=== PATIENT | male | born 1950 | race Caucasian/White ===

== ENCOUNTER → 2024-10-07 | Outpatient (CLI) | payer MEDICARE, SELFPAY ==
[2024-10-07 14:28] LABS: Basophils # (Auto) 0.1 Thou/mm3 (0.0-0.2); Basophils % (Auto) 1 % (0-2.5); Eosinophils % (Auto) 0 % (0-10); Hematocrit 40.6 % (41.0-53.0); Hemoglobin 14.1 g/dL (13.5-16.0); Immature Granulocytes % (Auto) 0 % (0-0); Immature Granulocytes Auto 0.02 Thou/mm3 (0.00-0.00); Lymphocytes # (Auto) 1.3 Thou/mm3 (1.0-4.8); Lymphocytes % (Auto) 19 % (10-50); Mean Corpuscular HGB Conc 34.7 g/dl (31.0-37.0); Mean Corpuscular Hemoglobin 29.4 pg (25.0-35.0); Mean Corpuscular Volume 85 fL (80-100); Monocytes # (Auto) 0.7 Thou/mm3 (0.0-0.8); Monocytes % (Auto) 11 % (0-12); Neutrophils # (Auto) 4.6 Thou/mm3 (1.8-7.7); Neutrophils % (Auto) 69 % (37-80); Nucleated Red Blood Cell % 0 /100 WBC (0); Platelet Count 213 Thou/mm3 (140-440); RDW Standard Deviation 42.1 fL (35.1-43.9); White Blood Count 6.7 Thou/mm3 (3.8-10.6)
[2024-10-07 14:58] LABS: Alanine Aminotransferase 18 U/L (10-49); Albumin, Serum 4.5 gm/dL (3.4-4.8); Alkaline Phosphatase 73 U/L (46-116); Anion Gap 8 (7-16); Aspartate Amino Transferase 14 U/L (0-34); BUN/Creatinine Ratio 28 Ratio (12-20); Bilirubin,Total 1.4 mg/dL (0.3-1.2); Blood Urea Nitrogen 28 mg/dL (9-23); Calcium 9.1 mg/dL (8.3-10.6); Calcium (Corrected) 9.1 mg/dL (8.5-10.1); Carbon Dioxide 23.5 mMol/L (20.0-31.0); Chloride 107 mMol/L (98-107); Globulin 1.5 gm/dL (2.3-3.5); Glucose 189 mg/dL (74-106); Osmolality,Calculated 286 (275-295); Potassium 4.3 mMol/L (3.4-5.1); Sodium 138 mMol/L (136-145); eGFR > 60 See Note
== END | disposition home or self-care (01) ==
LOC: COPL 14:00
PROVIDERS: PCP Specialist; Referring Provider Specialist; Visit Provider Specialist
DX: R79.89 Other specified abnormal findings of blood chemistry (principal); R53.1 Weakness; R11.2 Nausea with vomiting, unspecified; R94.5 Abnormal results of liver function studies; K76.89 Other specified diseases of liver
CPT/HCPCS: 36415; 80053; 85025

== ENCOUNTER → 2024-12-01 | Outpatient (CLI) | payer MEDICARE, SELFPAY ==
[2024-12-01 16:43] LABS: Creatinine MALB Rnd Ur 44 mg/dL (30-125); Microalbumin Creat Ratio 173 mg/gCrea (<30); Microalbumin, Random Urine 76 mg/L (0-300)
[2024-12-01 16:43] LABS: Alanine Aminotransferase 12 U/L (10-49); Albumin, Serum 4.2 gm/dL (3.4-4.8); Albumin/Globulin Ratio 2.1 (1.2-2.2); Alkaline Phosphatase 73 U/L (46-116); Anion Gap 9 (7-16); Aspartate Amino Transferase 16 U/L (0-34); BUN/Creatinine Ratio 25 Ratio (12-20); Bilirubin,Total 1.5 mg/dL (0.3-1.2); Blood Urea Nitrogen 25 mg/dL (9-23); Calcium 9.3 mg/dL (8.3-10.6); Calcium (Corrected) 9.3 mg/dL (8.5-10.1); Carbon Dioxide 24.7 mMol/L (20.0-31.0); Cardiac Risk Estimate 2.7 RATIO (4.0-6.7); Chloride 108 mMol/L (98-107); Cholesterol 114 mg/dL (132-200); Glucose 192 mg/dL (74-106); HDL Cholesterol 43 mg/dL (40-60); LDL Cholesterol,Calculated 23 mg/dL (0-130); Osmolality,Calculated 292 (275-295); Phosphorous 4.4 mg/dL (2.4-5.1); Sodium 142 mMol/L (136-145); Total Protein 6.2 gm/dL (5.7-8.2); Triglycerides 239 mg/dL (30-150); eGFR > 60 See Note
[2024-12-01 16:44] LABS: Glucose Estimated Average 157 mg/dL (80-131); Hemoglobin A1C 7.1 % Hgb (4.8-6.0)
== END | disposition home or self-care (01) ==
LOC: COPL 14:42
PROVIDERS: PCP Specialist; Referring Provider Internal Medicine; Visit Provider Internal Medicine
DX: E11.65 Type 2 diabetes mellitus with hyperglycemia (principal); E78.2 Mixed hyperlipidemia
CPT/HCPCS: 36415; 80053; 80061; 82043; 82570; 83036; 84100

== ENCOUNTER → 2025-01-11 | Outpatient (CLI) | payer MEDICARE, SELFPAY ==
[2025-01-11 13:52] LABS: Glucose Estimated Average 123 mg/dL (80-131); Hemoglobin A1C 5.9 % Hgb (4.8-6.0)
[2025-01-11 14:08] LABS: Creatinine MALB Rnd Ur 17 mg/dL (30-125); Microalbumin Creat Ratio 153 mg/gCrea (<30); Microalbumin, Random Urine 26 mg/L (0-300)
== END | disposition home or self-care (01) ==
LOC: COPL 13:06
PROVIDERS: PCP Specialist; Referring Provider Specialist; Visit Provider Specialist
DX: E11.65 Type 2 diabetes mellitus with hyperglycemia (principal)
CPT/HCPCS: 36415; 82043; 82570; 83036

== ENCOUNTER → 2025-04-12 | Outpatient (CLI) | payer MEDICARE, SELFPAY ==
[2025-04-12 17:47] LABS: Basophils % (Auto) 1 % (0-2.5); Eosinophils % (Auto) 0 % (0-10); Hematocrit 36.2 % (41.0-53.0); Hemoglobin 12.7 g/dL (13.5-16.0); Immature Granulocytes % (Auto) 0 % (0-0); Immature Granulocytes Auto 0.01 Thou/mm3 (0.00-0.00); Immature Reticulocyte Fraction 12.2 % (2.3-13.4); Lymphocytes # (Auto) 0.7 Thou/mm3 (1.0-4.8); Lymphocytes % (Auto) 10 % (10-50); Mean Corpuscular HGB Conc 35.1 g/dl (31.0-37.0); Mean Corpuscular Hemoglobin 31.3 pg (25.0-35.0); Mean Corpuscular Volume 89 fL (80-100); Monocytes # (Auto) 0.7 Thou/mm3 (0.0-0.8); Monocytes % (Auto) 11 % (0-12); Neutrophils # (Auto) 5.2 Thou/mm3 (1.8-7.7); Neutrophils % (Auto) 79 % (37-80); Nucleated Red Blood Cell % 0 /100 WBC (0); Platelet Count 218 Thou/mm3 (140-440); RDW Standard Deviation 42.7 fL (35.1-43.9); Red Blood Count 4.06 Miln/mm3 (4.50-5.90); Reticulocyte Absolute Auto 82.4 Biln/L (25.0-75.0); Reticulocyte Hgb Content 34.7 pg (28.0-35.0); White Blood Count 6.6 Thou/mm3 (3.8-10.6)
[2025-04-12 17:52] LABS: Glucose Estimated Average 111 mg/dL (80-131); Hemoglobin A1C 5.5 % Hgb (4.8-6.0)
[2025-04-12 18:03] LABS: Creatinine MALB Rnd Ur 76 mg/dL (30-125); Microalbumin Creat Ratio 64 mg/gCrea (<30); Microalbumin, Random Urine 49 mg/L (0-300)
[2025-04-12 18:05] LABS: Alanine Aminotransferase 16 U/L (10-49); Albumin, Serum 4.1 gm/dL (3.4-4.8); Albumin/Globulin Ratio 2.4 (1.2-2.2); Alkaline Phosphatase 63 U/L (46-116); Anion Gap 9 (7-16); Aspartate Amino Transferase 18 U/L (0-34); BUN/Creatinine Ratio 19 Ratio (12-20); Bilirubin,Total 1.3 mg/dL (0.3-1.2); Blood Urea Nitrogen 19 mg/dL (9-23); Calcium 9.1 mg/dL (8.3-10.6); Calcium (Corrected) 9.1 mg/dL (8.5-10.1); Carbon Dioxide 25.8 mMol/L (20.0-31.0); Cardiac Risk Estimate 2.8 RATIO (4.0-6.7); Chloride 108 mMol/L (98-107); Cholesterol 101 mg/dL (132-200); Free T4 (Free Thyroxine) 1.23 ng/dL (0.89-1.76); Globulin 1.7 gm/dL (2.3-3.5); Glucose 126 mg/dL (74-106); HDL Cholesterol 36 mg/dL (40-60); LDL Cholesterol,Calculated 31 mg/dL (0-130); Osmolality,Calculated 289 (275-295); Sodium 143 mMol/L (136-145); Thyroid Stimulating Hormone 1.67 uIU/mL (0.55-4.78); Total Protein 5.8 gm/dL (5.7-8.2); Triglycerides 172 mg/dL (30-150); eGFR > 60 See Note
[2025-04-12 18:08] LABS: Iron 32 mcg/dL (65-175); Percent Iron Saturation 11 % (20-55); Total Iron Binding Capacity 272 mcg/dL (250-425); Unsaturated Iron Binding 240 (225-295)
[2025-04-16 06:08] LABS: hs-CRP* 3.3 mg/L
== END | disposition home or self-care (01) ==
LOC: COPL 16:17
PROVIDERS: PCP Specialist; Referring Provider Specialist; Visit Provider Specialist
DX: E11.65 Type 2 diabetes mellitus with hyperglycemia (principal); E03.8 Other specified hypothyroidism; E78.2 Mixed hyperlipidemia; D50.9 Iron deficiency anemia, unspecified; K51.00 Ulcerative (chronic) pancolitis without complications; K57.30 Diverticulosis of large intestine without perforation or abscess without bleeding
CPT/HCPCS: 36415; 80053; 80061; 82043; 82570; 83036; 83540; 83550; 84439; 84443; 85025; 85046; 86141

== ENCOUNTER 2025-04-20 18:40 | Emergency (ER) | payer MEDICARE, SELFPAY ==
[2025-04-20 18:41] VITALS: BMI 23.0
[2025-04-20 19:24] VITALS: BP 157/78; PULSE 74; RESP 20; TEMP 37.9; O2SAT 99
--- NOTE | 2025-04-20 19:38 | XR_ITS ---
Examination: CT abdomen with intravenous contrast CT pelvis with intravenous contrast 2-D coronal reconstructions 2-D sagittal reconstructions Date and time of exam:April 20, 2025 10:52 PM INDICATIONS: Severe left lower abdominal pain beginning 2:00 PM today. CTDI: vol (mGy) 5.92 DLP: (mGycm) 307 Technique: Multiple axial sections of the abdomen and pelvis have been obtained. 64 slice high-resolution scanner used. 3 mm axial sections have been obtained, post intravenous injection 60 cc [id number] 2-D sagittal, coronal reconstructions obtained. Low dose protocols were performed. One or more of the following dose reduction techniques were used; automated exposure control, adjustment of the mA and/or KV according to patient size, use of iterative reconstruction technique. Findings: No focal liver lesion 8 mm low-density splenic lesion possibly a cyst No gallstones No pancreatic mass Mild to moderate left hydronephrosis secondary to 6 mm proximal left ureteral calculus Aorta normal size No bowel obstruction Normal appendix No bladder mass or bladder calculi Transverse prostate dimension 3.3 cm Small bilateral inguinal hernias IMPRESSION: Mild to moderate left hydronephrosis secondary to 6 mm proximal left ureteral calculus
--- NOTE | 2025-04-20 19:42 | EDRME_ITS ---
Rapid Medical Screening Exam [facility] Arrival date/time: 04/20/25 18:40 74M with history of HTN, CAD, hypothyroidism, DM, and UC presents to ED with 1 day of LLQ pain. Patient denies dysuria/hematuria, N/V, and diarrhea. Chief Complaint: General Adult/Misc Complain Vital signs: Vital Signs Temperature 100.2 F 04/20/25 19:24 Pulse Rate 74 04/20/25 19:24 Respiratory Rate 20 04/20/25 19:24 Blood Pressure 157/78 H 04/20/25 19:24 Pulse Oximetry (%) 99 04/20/25 19:24 Oxygen Delivery Method Room Air 04/20/25 19:24
[2025-04-20 20:01] LABS: Basophils % (Auto) 0 % (0-2.5); Eosinophils % (Auto) 0 % (0-10); Hematocrit 34.5 % (41.0-53.0); Hemoglobin 12.7 g/dL (13.5-16.0); Immature Granulocytes % (Auto) 0 % (0-0); Immature Granulocytes Auto 0.03 Thou/mm3 (0.00-0.00); Lymphocytes # (Auto) 0.6 Thou/mm3 (1.0-4.8); Lymphocytes % (Auto) 5 % (10-50); Mean Corpuscular HGB Conc 36.8 g/dl (31.0-37.0); Mean Corpuscular Hemoglobin 30.8 pg (25.0-35.0); Mean Corpuscular Volume 84 fL (80-100); Monocytes # (Auto) 0.8 Thou/mm3 (0.0-0.8); Monocytes % (Auto) 7 % (0-12); Neutrophils % (Auto) 88 % (37-80); Nucleated Red Blood Cell % 0 /100 WBC (0); Platelet Count 269 Thou/mm3 (140-440); RDW Standard Deviation 39.6 fL (35.1-43.9); Red Blood Count 4.12 Miln/mm3 (4.50-5.90); White Blood Count 11.5 Thou/mm3 (3.8-10.6)
[2025-04-20 20:03] LABS: Lactate (Lactic Acid) 1.2 mMol/L (0.4-2.0)
[2025-04-20 20:27] LABS: Collection Type, Urine Clean Catch; Squamous Epithelial Cell,Urine 0 /hpf (0-5)
[2025-04-20 20:30] LABS: Alanine Aminotransferase 15 U/L (10-49); Albumin, Serum 4.6 gm/dL (3.4-4.8); Albumin/Globulin Ratio 2.6 (1.2-2.2); Alkaline Phosphatase 77 U/L (46-116); Anion Gap 12 (7-16); Aspartate Amino Transferase 18 U/L (0-34); BUN/Creatinine Ratio 18 Ratio (12-20); Bilirubin,Total 1.3 mg/dL (0.3-1.2); Blood Urea Nitrogen 22 mg/dL (9-23); Calcium 10.2 mg/dL (8.3-10.6); Calcium (Corrected) 10.2 mg/dL (8.5-10.1); Carbon Dioxide 21.5 mMol/L (20.0-31.0); Chloride 103 mMol/L (98-107); Creatinine (Component) 1.2 mg/dL (0.6-1.3); Estimated Creatinine Clearance 42.1 mL/min (>60); Globulin 1.8 gm/dL (2.3-3.5); Glucose 177 mg/dL (74-106); Lipase 39 U/L (12-53); Osmolality,Calculated 279 (275-295); Procalcitonin 0.08 ng/ml (0.0-0.49); Sodium 136 mMol/L (136-145); Total Protein 6.4 gm/dL (5.7-8.2); eGFR > 60 See Note
[2025-04-20 20:30] LABS: Bilirubin,Urine Negative (Negative); Blood,Urine 1+ (Negative); Clarity,Urine Clear (Clear/Hazy); Color,Urine Lt-Yellow (Lt Yel-Yel); Culture Indicated,Urine Not Indicated; Glucose, Urine Negative (Negative); Ketones,Urine 1+ (Negative); Leukocyte Esterase,Urine Negative (Negative); Nitrite,Urine Negative (Negative); Protein,Urine Trace (Neg - Trace); RBC,Urine 39 /hpf (0-3); Specific Gravity,Urine 1.018 (1.001-1.035); Urobilinogen,Urine Negative mg/dL (0.0-1.0); WBC,Urine 2 /hpf (0-5)
[2025-04-20] MEDS: MORPHINE SULF INJ 10 MG/ML VIAL 5 MG IVP (22:31)
[2025-04-20] MEDS: ONDANSETRON INJ 2 MG/ML INJ 2 ML 4 MG IV (22:31)
[2025-04-21] MEDS: SODIUM CHLORIDE 0.9% 1000 ML 1,000 ML 999 ML IV ×2 (00:40→02:19)
[2025-04-21] MEDS: ONDANSETRON INJ 2 MG/ML INJ 2 ML 4 MG IVP (00:41)
[2025-04-21] MEDS: MORPHINE SULF INJ 10 MG/ML VIAL 5 MG IVP (00:41)
[2025-04-21] MEDS: TAMSULOSIN HCL 0.4 MG CAPSULE PO (00:43)
[2025-04-21] MEDS: ACETAMINOPHEN 325 MG TABLET 650 MG PO (00:43)
--- NOTE | 2025-04-21 02:06 | PD.EDBACK ---
ED Back Injury Pain RME/HPI General Chief Complaint: General Adult/Misc Complain Stated Complaint: SEVERE PAIN ON L) SIDE, 07/07 SINCE 2PM Arrival date/time: 04/20/25 18:40 RME / HPI RME / HPI Narrative: 04/20/25 18:40 74M with history of HTN, CAD, hypothyroidism, DM, and UC presents to ED with 1 day of LLQ pain. Patient denies dysuria/hematuria, N/V, and diarrhea. DR MARTINEZ MAIN ED EVALUATION: 74 y/o male with Hx of Type II DM and HTN presents to ED c/o severe left flank pain and nausea x 12 hours. Patient is able to urinate fine, but states he feels dehydrated. He reports an allergy to Sulfasalazine. Denies any history of kidney stones. Patient denies vomiting or any other associated symptoms or aggravating factors. No modifying factors, no radiation, no migration. Minor pain reported at this time. No other concerns or complaints expressed at this time. Related Data Home Medications ?Medication ?Instructions ?Recorded ?Confirmed cholecalciferol (vitamin D3) 50 2,000 unit PO QDAY #0 caps 05/30/15 03/30/24 mcg (2,000 unit) capsule (Vitamin D3) levothyroxine 25 mcg tablet 25 mcg PO [facility] ##90 05/30/15 03/30/24 aspirin 81 mg chewable tablet 81 mg PO QDAY 06/16/18 04/11/21 biotin 5,000 mcg sublingual tablet 5,000 mcg QDAY 06/16/18 04/11/21 coenzyme Q10 100 mg capsule 100 mg PO QDAY 06/16/18 03/30/24 (CoQ-10) clopidogrel 75 mg tablet (Plavix) 75 mg PO EVERYOTHERDAY 01/05/21 03/30/24 mesalamine 1.2 gram tablet,delayed 4.8 g PO BID 01/05/21 03/30/24 release (Lialda) metformin 500 mg tablet,extended 500 mg PO BID 01/05/21 03/30/24 release 24 hr rosuvastatin 10 mg tablet 10 mg PO QDAY 01/05/21 03/30/24 pantoprazole 40 mg tablet,delayed 40 mg PO QDAY 04/11/21 03/30/24 release dapagliflozin propanediol 5 mg 5 mg PO QDAY 03/30/24 03/30/24 tablet (Farxiga) famotidine 20 mg tablet 20 mg PO QDAY 03/30/24 03/30/24 temazepam 15 mg capsule 15 mg PO QDAY PRN Anxiety 03/30/24 03/30/24 Held on 03/30/24. Instructions: Resume on 03/31/24. vit C 250 mg-vit E 90 mg-zinc 40 1 tab PO BID 03/30/24 03/30/24 mg-copper 1 [id number] capsule (PreserVision AREDS-2) Previous Rx's ?Medication ?Instructions ?Recorded acetaminophen 300 mg-codeine 30 mg 1 tab PO BID PRN pain #14 tabs 09/30/23 tablet Held on 03/30/24. Instructions: Resume on 03/31/24. hydrocodone 5 mg-acetaminophen 325 1 tab PO Q6H PRN pain #14 tabs 04/21/25 mg tablet tamsulosin 0.4 mg capsule 0.4 mg PO QDAY #14 caps 04/21/25 Allergies Allergy/AdvReac Type Severity Reaction Status Date / Time lisinopril Allergy Intermediate Headache Verified 04/20/25 18:43 valsartan Allergy Intermediate Headache Verified 04/20/25 18:43 azathioprine Allergy Nausea Verified 04/20/25 18:43 sulfasalazine Allergy Anaphylaxis Verified 04/20/25 18:43 Past Medical History Past Medical History CARDIAC: Positive Coronary Artery Disease and Hypercholesterolemia GASTROINTESTINAL: Positive Gastrointestinal Disorders and Colitis MUSCULOSKELETAL: Positive Musculoskeletal Disorders ENDOCRINE: Positive Diabetes Mellitus Type 2 and Hypothyroidism OTHER HISTORY: Positive Shingles, Mumps and Cancer Surgical History SURGICAL: Positive Cardiac Surgery, Coronary Stent (X3) and Vasectomy ED Exam Narrative Physical exam: GENERAL APPEARANCE: alert and oriented x 4, well-developed, well-nourished, no acute distress VITALS: All vitals were reviewed and the pulse ox is 99% on room air, which is normal according to my interpretation. HEENT: Normocephalic, atraumatic; pupils equal, round, reactive to light; EOMI; mucous membranes pink, moist; oropharynx clear NECK: Supple LUNGS: CTABL; no wheezes, no rales, no rhonchi HEART: Regular rate, regular rhythm; normal S1, S2; no murmurs ABDOMEN: non distended; normal BS; soft, no tenderness, no guarding, no rebound; no masses, no organomegaly, no hernia BACK: no CVA tenderness EXTREMITIES: atraumatic; no edema NEUROLOGIC: awake; alert and oriented x4; cranial nerves II-XII grossly intact; no focal sensory or motor deficits PSYCHIATRIC: appropriate mood and affect SKIN: warm, dry, normal color; no rashes Course Quality Measures none Orders Category Date Time Status CT Screening NOW Care 04/20/25 19:39 Active Insert IV NOW Care 04/20/25 19:[address] abdomen pelvis w con Stat Exams 04/20/25 19:38 Completed CBC Stat Lab 04/20/25 19:53 Completed CMP [Comprehensive Metabolic Panel] Stat Lab 04/20/25 19:53 Completed Lactate (Lactic Acid) Stat Lab 04/20/25 19:53 Completed Lipase Stat Lab 04/20/25 19:53 Completed Procalcitonin Stat Lab 04/20/25 19:53 Completed Urinalysis, C/S if Indicated Stat Lab 04/20/25 20:14 Completed Acetaminophen Tab [Tylenol Tab] Med 04/21/25 00:15 Discontinued 650 mg PO X1 ONE HYDROmorphone INJ [Dilaudid Inj] Med 04/21/25 02:06 Discontinued 1 mg IVP X1 ONE Morphine Inj Med 04/20/25 19:41 Discontinued 5 mg IVP X1 ONE Morphine Inj Med 04/21/25 00:14 Discontinued 5 mg IVP X1 ONE Ondansetron Inj [Zofran Inj] Med 04/20/25 19:41 Discontinued 4 mg IV X1 ONE Ondansetron Inj [Zofran Inj] Med 04/21/25 00:14 Discontinued 4 mg IVP X1 ONE Sodium Chloride 0.9% 1000 ml [Ns] 1,000 ml Med 04/21/25 00:15 Discontinued IV 999 mls/hr Sodium Chloride 0.9% 1000 ml [Ns] 1,000 ml Med 04/21/25 02:06 Active IV 999 mls/hr Tamsulosin HCl [Flomax] Med 04/21/25 00:15 Discontinued 0.4 mg PO X1 ONE Vital Signs Vital signs: Vital Signs Temperature 100.2 F 04/20/25 19:24 Pulse Rate 74 04/20/25 19:24 Respiratory Rate 20 04/20/25 19:24 Blood Pressure 157/78 H 04/20/25 19:24 Pulse Oximetry (%) 99 04/20/25 19:24 Oxygen Delivery Method Room Air 04/20/25 19:24 Back Pain / Injury MDM Narrative MDM Narrative:: Scribe Attestation: I, Pagemichael Kat, am scribing for and in the presence of Dr. Martinez. Provider Notation: Although this document has been carefully reviewed, there may still be some phonetic and other typographical errors.? These errors are purely grammatical due to imperfections in the software program and should not be construed in any way to? compromise the substance of the patient's medical care during this visit. Patient data External records reviewed:: [facility] previous records (Reviewed prior ED records from 09/30/23. Patient was seen for Contusion of nose.) Clinical information provided by:: patient Social determinants that could affect healthcare access:: none Patient has the following chronic illnesses:: Coronary Artery Disease, Hypercholesterolemia, Colitis, Diabetes Mellitus Type 2 and Hypothyroidism How is presenting disease/condition affected by chronic disease/condition?: exacerbated by Evaluation data The following diagnostics were reviewed and interpreted by me:: lab results and radiology exam(s) Lab and/or radiology exams considered but not ordered:: None Interpretation Summary: RADIOLOGY Abdomen/Pelvis CT: Patient: SHIRA MICHEL. Record#: [id number] Birthdate: 1950 Age/Sex: 74 / M Location: [facility] Attending Dr: Ordering Physician: Johnnie Farias PA-C Date of Service: 04/20/25 Procedure(s): CT abdomen pelvis w con Accession Number(s): [id number] cc: Chance Somers MD; Paul Lombardo MD; Johnnie Farias PA-C~ Examination: CT abdomen with intravenous contrast CT pelvis with intravenous contrast 2-D coronal reconstructions 2-D sagittal reconstructions Date and time of exam:April 20, 2025 10:52 PM INDICATIONS: Severe left lower abdominal pain beginning 2:00 PM today. CTDI: vol (mGy) 5.92 DLP: (mGycm) 307 Technique: Multiple axial sections of the abdomen and pelvis have been obtained. 64 slice high-resolution scanner used. 3 mm axial sections have been obtained, post intravenous injection 60 cc [id number] 2-D sagittal, coronal reconstructions obtained. Low dose protocols were performed. One or more of the following dose reduction techniques were used; automated exposure control, adjustment of the mA and/or KV according to patient size, use of iterative reconstruction technique. Findings: No focal liver lesion 8 mm low-density splenic lesion possibly a cyst No gallstones No pancreatic mass Mild to moderate left hydronephrosis secondary to 6 mm proximal left ureteral calculus Aorta normal size No bowel obstruction Normal appendix No bladder mass or bladder calculi Transverse prostate dimension 3.3 cm Small bilateral inguinal hernias IMPRESSION: Mild to moderate left hydronephrosis secondary to 6 mm proximal left ureteral calculus Dictated By: Paul Lombardo MD Signed By: <Electronically signed by Paul Lombardo MD in OV> 04/20/25 2316 Medications / Prescriptions Medications or Prescriptions considered but not ordered:: None Medication administrations:: Medication Administration History Sodium Chloride (Ns) 1,000 mls @ 999 mls/hr IV .Q1H1M ONE Stop: 04/21/25 03:06 Last Admin: 04/21/25 02:19 Dose: 999 mls/hr Documented By: SE Discontinued Medications Acetaminophen (Acetaminophen 325 Mg Tablet) 650 mg PO X1 ONE Stop: 04/21/25 00:16 Last Admin: 04/21/25 00:43 Dose: 650 mg Documented By: SE Hydromorphone HCl (Hydromorphone Inj 2 Mg/Ml Vial) 1 mg IVP X1 ONE Stop: 04/21/25 02:07 Last Admin: 04/21/25 02:19 Dose: 1 mg Documented By: SE Sodium Chloride (Ns) 1,000 mls @ 999 mls/hr IV .Q1H1M ONE Stop: 04/21/25 01:15 Last Infusion: 04/21/25 02:12 Dose: Infused Documented By: Admin: 04/21/25 00:40 Dose: 999 mls/hr Documented By: SE Morphine Sulfate (Morphine Sulf Inj 10 Mg/Ml Vial) 5 mg IVP X1 ONE Stop: 04/20/25 19:42 Last Admin: 04/20/25 22:31 Dose: 5 mg Documented By: ISAI Morphine Sulfate (Morphine Sulf Inj 10 Mg/Ml Vial) 5 mg IVP X1 ONE Stop: 04/21/25 00:15 Last Admin: 04/21/25 00:41 Dose: 5 mg Documented By: Ondansetron HCl (Ondansetron Inj 2 Mg/Ml Inj 2 Ml) 4 mg IV X1 ONE; Protocol Stop: 04/20/25 19:42 Last Admin: 04/20/25 22:31 Dose: 4 mg Documented By: ISAI Ondansetron HCl (Ondansetron Inj 2 Mg/Ml Inj 2 Ml) 4 mg IVP X1 ONE Stop: 04/21/25 00:15 Last Admin: 04/21/25 00:41 Dose: 4 mg Documented By: SE Tamsulosin HCl (Tamsulosin Hcl 0.4 Mg Capsule) 0.4 mg PO X1 ONE Stop: 04/21/25 00:16 Last Admin: 04/21/25 00:43 Dose: 0.4 mg Documented By: See above if any Consultations Consultation(s) initiated? (list below): No Diagnosis Differential diagnosis back pain/injury: lumbar radiculopathy, sciatica, strain of lumbar region, renal colic, pyelonephritis, thoracic back pain, discitis and other (renal calculi) Most likely diagnosis given after review of the tests above:: Left ureteral calculus Admission Indicated Admission indicated?: not indicated Explain why admission is indicated or not indicated:: Patient does not meet admission criteria. Admission Request Was there a request for admission?: No Disposition Plan Disposition Plan: Discharge Discharge Attestation Discharge Attestation: The patient and all family members were given an opportunity to ask questions and understood the discharge instructions. Discharge instructions specifically effects, indications for sooner follow up or return to the emergency department, and the expected course of current diagnosis. Patient condition: Stable Discharge Plan Plan Patient Disposition: HOME (Self Care) Prescriptions/Referrals Prescriptions/Med Rec: New tamsulosin 0.4 mg capsule 0.4 mg PO QDAY Qty: 14 0RF hydrocodone-acetaminophen 5-325 mg tablet 1 tab PO Q6H MDD 9 PRN (Reason: pain) Qty: 14 0RF No Action levothyroxine 25 mcg Tablet 25 mcg PO QAM Qty: 90 cholecalciferol (vitamin D3) [Vitamin D3] 2,000 UNIT capsule 2,000 unit PO QDAY Qty: 0 clopidogrel [Plavix] 75 mg Tablet 75 mg PO EVERYOTHERDAY metformin 500 mg Tablet Extended Release 24 Hr 500 mg PO BID rosuvastatin 10 mg Tablet 10 mg PO QDAY mesalamine [Lialda] 1.2 gram Tablet,Delayed Release (Dr/Ec) 4.8 g PO BID aspirin 81 mg Tablet,Chewable 81 mg PO QDAY coenzyme Q10 [CoQ-10] 100 mg Capsule 100 mg PO QDAY biotin 5,000 mcg Tablet, Sublingual 5,000 mcg QDAY pantoprazole 40 mg Tablet,Delayed Release (Dr/Ec) 40 mg PO QDAY famotidine 20 mg tablet 20 mg PO QDAY Patient Comments: TAKE 1 TABLET BY MOUTH TWICE A DAY temazepam 15 mg Capsule 15 mg PO QDAY PRN (Reason: Anxiety) PreserVision AREDS-2 250-90-40-1 mg Capsule 1 tab PO BID dapagliflozin propanediol [Farxiga] 5 mg tablet 5 mg PO QDAY Patient Comments: TAKE 1 TABLET BY MOUTH EVERY DAY acetaminophen-codeine 300-30 mg tablet 1 tab PO BID PRN (Reason: pain) Qty: 14 0RF Referrals: Chance Somers MD [Primary Care Provider] - In 1 week Problem List Clinical Impression: Left ureteral calculus Patient/Caregiver Discharge Instructions Education Materials: ED Kidney Stone w/ Colic Print Language: Kosovan Stand Alone Forms: [employer] Award Info., Patient Portal Info Letter
[2025-04-21] MEDS: HYDROmorphone INJ 2 MG/ML VIAL 1 MG IVP (02:19)
[2025-04-21 04:28] VITALS: BP 141/66; PULSE 72; RESP 16; O2SAT 100
== END 2025-04-21 04:30 | disposition home or self-care (01) ==
PROVIDERS: Physician Assistant; Emergency Provider Emergency Medicine; PCP Specialist
DX: N13.2 Hydronephrosis with renal and ureteral calculous obstruction (principal); I10 Essential (primary) hypertension; I25.10 Atherosclerotic heart disease of native coronary artery without angina pectoris; E11.9 Type 2 diabetes mellitus without complications; E03.9 Hypothyroidism, unspecified
CPT/HCPCS: 36415; 74177; 80053; 81001; 83605; 83690; 84145; 85025; 96361; 96374; 96375; 96376; 99285; A4649; J1171; J2270; J2405; J7030; Q9967; A9270

== ENCOUNTER 2025-04-22 02:17 | Inpatient (IN) | payer MEDICARE, SELFPAY ==
[2025-04-22] VITALS (11 sets, daily range): BP systolic 121–155; BP diastolic 58–98; PULSE 60–95; RESP 16–97; TEMP 36.3–36.9; O2SAT 94–97; BMI 23.0; BMI 25.7
--- NOTE | 2025-04-22 03:27 | EDRME_ITS ---
Rapid Medical Screening Exam [facility] Arrival date/time: 04/22/25 02:17 74M with history of HTN, CAD, hypothyroidism, DM, and UC presents to ED with urinary retention starting around 7 PM last night, as well as N/V. Patient was here yesterday diagnosed with 6 mm kidney stone. Patient would also like something for his constipation due to a lot of morphine given yesterday. Patient also thinks he threw up his Flomax. Chief Complaint: Abdominal Pain Vital signs: Vital Signs Temperature 97.6 F 04/22/25 02:26 Pulse Rate 72 04/22/25 02:26 Respiratory Rate 18 04/22/25 02:26 Blood Pressure 121/66 04/22/25 02:26 Pulse Oximetry (%) 96 04/22/25 02:26 Oxygen Delivery Method Room Air 04/22/25 02:26
--- NOTE | 2025-04-22 03:40 | XR_ITS ---
Examination: Abdominal series 3 views including upright PA chest TECHNIQUE: Upright PA chest, AP supine, AP upright abdomen 3 views Date and time: April 22, 2025, 0353 hours INDICATIONS: Abdominal pain beginning 5 days ago. FINDINGS: Large amounts of stool throughout the colon. No obstruction. No free air. Normal heart size. Suspicious for a 3 mm left renal calculus Mild vascular congestion. No lobar pneumonia. Old right-sided rib fractures. IMPRESSION: Large amounts of stool throughout the colon. No obstruction. Suspicious for 3 mm left renal calculus
[2025-04-22 03:53] LABS: Basophils # (Auto) 0.0 Thou/mm3 (0.0-0.2); Basophils % (Auto) 0 % (0-2.5); Eosinophils # (Auto) 0.0 Thou/mm3 (0.0-0.5); Eosinophils % (Auto) 0 % (0-10); Hematocrit 31.2 % (41.0-53.0); Hemoglobin 11.2 g/dL (13.5-16.0); Immature Granulocytes Auto 0.06 Thou/mm3 (0.00-0.00); Lymphocytes # (Auto) 0.6 Thou/mm3 (1.0-4.8); Lymphocytes % (Auto) 5 % (10-50); Mean Corpuscular HGB Conc 35.9 g/dl (31.0-37.0); Mean Corpuscular Hemoglobin 31.4 pg (25.0-35.0); Mean Corpuscular Volume 87 fL (80-100); Monocytes # (Auto) 1.1 Thou/mm3 (0.0-0.8); Monocytes % (Auto) 9 % (0-12); Neutrophils # (Auto) 11.1 Thou/mm3 (1.8-7.7); Neutrophils % (Auto) 86 % (37-80); Nucleated Red Blood Cell # 0.00 Thou/mm3 (0.00-0.00); Nucleated Red Blood Cell % 0 /100 WBC (0); Platelet Count 245 Thou/mm3 (140-440); RDW Standard Deviation 40.5 fL (35.1-43.9); Red Blood Count 3.57 Miln/mm3 (4.50-5.90); White Blood Count 12.9 Thou/mm3 (3.8-10.6)
--- NOTE | 2025-04-22 04:06 | PD.EDMALE ---
ED Male Genitalurinary RME/HPI General Chief complaint: Abdominal Pain Stated complaint: left flank pain/unable to urinate Arrival date/time: 04/22/25 02:17 RME / HPI RME / HPI Narrative: 04/22/25 02:17 74M with history of HTN, CAD, hypothyroidism, DM, and UC presents to ED with urinary retention starting around 7 PM last night, as well as N/V. Patient was here yesterday diagnosed with 6 mm kidney stone. Patient would also like something for his constipation due to a lot of morphine given yesterday. Patient also thinks he threw up his Flomax. Related Data Home Medications ?Medication ?Instructions ?Recorded ?Confirmed cholecalciferol (vitamin D3) 50 2,000 unit PO QDAY #0 caps 05/30/15 03/30/24 mcg (2,000 unit) capsule (Vitamin D3) levothyroxine 25 mcg tablet 25 mcg PO QAM ##90 05/30/15 03/30/24 aspirin 81 mg chewable tablet 81 mg PO QDAY 06/16/18 04/11/21 biotin 5,000 mcg sublingual tablet 5,000 mcg QDAY 06/16/18 04/11/21 coenzyme Q10 100 mg capsule 100 mg PO QDAY 06/16/18 03/30/24 (CoQ-10) clopidogrel 75 mg tablet (Plavix) 75 mg PO EVERYOTHERDAY 01/05/21 03/30/24 mesalamine 1.2 gram tablet,delayed 4.8 g PO BID 01/05/21 03/30/24 release (Lialda) metformin 500 mg tablet,extended 500 mg PO BID 01/05/21 03/30/24 release 24 hr rosuvastatin 10 mg tablet 10 mg PO QDAY 01/05/21 03/30/24 pantoprazole 40 mg tablet,delayed 40 mg PO QDAY 04/11/21 03/30/24 release dapagliflozin propanediol 5 mg 5 mg PO QDAY 03/30/24 03/30/24 tablet (Farxiga) famotidine 20 mg tablet 20 mg PO QDAY 03/30/24 03/30/24 temazepam 15 mg capsule 15 mg PO QDAY PRN Anxiety 03/30/24 03/30/24 Held on 03/30/24. Instructions: Resume on 03/31/24. vit C 250 mg-vit E 90 mg-zinc 40 1 tab PO BID 03/30/24 03/30/24 mg-copper 1 [id number] capsule (PreserVision AREDS-2) Previous Rx's ?Medication ?Instructions ?Recorded acetaminophen 300 mg-codeine 30 mg 1 tab PO BID PRN pain #14 tabs 09/30/23 tablet Held on 03/30/24. Instructions: Resume on 03/31/24. hydrocodone 5 mg-acetaminophen 325 1 tab PO Q6H PRN pain #14 tabs 04/21/25 mg tablet tamsulosin 0.4 mg capsule 0.4 mg PO QDAY #14 caps 04/21/25 Allergies Allergy/AdvReac Type Severity Reaction Status Date / Time lisinopril Allergy Intermediate Headache Verified 04/20/25 18:43 valsartan Allergy Intermediate Headache Verified 04/20/25 18:43 azathioprine Allergy Nausea Verified 04/20/25 18:43 sulfasalazine Allergy Anaphylaxis Verified 04/20/25 18:43 Course Orders Category Date Time Status Catheter [Urinary Catheter] QS Care 04/22/25 03:26 Active Enema Administration NOW Care 04/22/25 03:26 Active Ramesh to Leg Bag Routine Care 04/22/25 03:27 Ordered XR abdomen series w chest 1V Stat Exams 04/22/25 03:40 Ordered CBC Stat Lab 04/22/25 03:37 Completed CMP [Comprehensive Metabolic Panel] Stat Lab 04/22/25 03:37 Received Urinalysis Stat Lab 04/22/25 03:26 Ordered Urine Culture Stat Lab 04/22/25 03:26 Ordered Ondansetron Odt [Zofran Odt] Med 04/22/25 03:26 Discontinued 4 mg PO X1 ONE Vital Signs Vital signs: Vital Signs Temperature 97.6 F 04/22/25 02:26 Pulse Rate 72 04/22/25 02:26 Respiratory Rate 18 04/22/25 02:26 Blood Pressure 121/66 04/22/25 02:26 Pulse Oximetry (%) 96 04/22/25 02:26 Oxygen Delivery Method Room Air 04/22/25 02:26 Urogenital - Male Medications / Prescriptions Medication administrations:: Medication Administration History Discontinued Medications Ondansetron HCl (Ondansetron Odt 4 Mg Tabrap) 4 mg PO X1 ONE; Protocol Stop: 04/22/25 03:27 Discharge Plan Prescriptions/Referrals Prescriptions/Med Rec: No Action levothyroxine 25 mcg Tablet 25 mcg PO QAM Qty: 90 cholecalciferol (vitamin D3) [Vitamin D3] 2,000 UNIT capsule 2,000 unit PO QDAY Qty: 0 clopidogrel [Plavix] 75 mg Tablet 75 mg PO EVERYOTHERDAY metformin 500 mg Tablet Extended Release 24 Hr 500 mg PO BID rosuvastatin 10 mg Tablet 10 mg PO QDAY mesalamine [Lialda] 1.2 gram Tablet,Delayed Release (Dr/Ec) 4.8 g PO BID aspirin 81 mg Tablet,Chewable 81 mg PO QDAY coenzyme Q10 [CoQ-10] 100 mg Capsule 100 mg PO QDAY biotin 5,000 mcg Tablet, Sublingual 5,000 mcg QDAY pantoprazole 40 mg Tablet,Delayed Release (Dr/Ec) 40 mg PO QDAY famotidine 20 mg tablet 20 mg PO QDAY Patient Comments: TAKE 1 TABLET BY MOUTH TWICE A DAY temazepam 15 mg Capsule 15 mg PO QDAY PRN (Reason: Anxiety) PreserVision AREDS-2 250-90-40-1 mg Capsule 1 tab PO BID dapagliflozin propanediol [Farxiga] 5 mg tablet 5 mg PO QDAY Patient Comments: TAKE 1 TABLET BY MOUTH EVERY DAY tamsulosin 0.4 mg capsule 0.4 mg PO QDAY Qty: 14 0RF hydrocodone-acetaminophen 5-325 mg tablet 1 tab PO Q6H MDD 9 PRN (Reason: pain) Qty: 14 0RF acetaminophen-codeine 300-30 mg tablet 1 tab PO BID PRN (Reason: pain) Qty: 14 0RF Referrals: Chance Somers MD [Primary Care Provider] - In 1 week Patient/Caregiver Discharge Instructions Print Language: Brazilian
[2025-04-22 04:13] LABS: Alanine Aminotransferase 12 U/L (10-49); Albumin, Serum 4.1 gm/dL (3.4-4.8); Albumin/Globulin Ratio 2.2 (1.2-2.2); Alkaline Phosphatase 70 U/L (46-116); Anion Gap 9 (7-16); Aspartate Amino Transferase 14 U/L (0-34); BUN/Creatinine Ratio 13 Ratio (12-20); Bilirubin,Total 1.3 mg/dL (0.3-1.2); Blood Urea Nitrogen 20 mg/dL (9-23); Calcium 8.3 mg/dL (8.3-10.6); Calcium (Corrected) 8.3 mg/dL (8.5-10.1); Carbon Dioxide 22.6 mMol/L (20.0-31.0); Chloride 97 mMol/L (98-107); Creatinine (Component) 1.5 mg/dL (0.6-1.3); Estimated Creatinine Clearance 33.7 mL/min (>60); Globulin 1.9 gm/dL (2.3-3.5); Glucose 181 mg/dL (74-106); Osmolality,Calculated 266 (275-295); Potassium 4.2 mMol/L (3.4-5.1); Sodium 129 mMol/L (136-145); Total Protein 6.0 gm/dL (5.7-8.2); eGFR 48 See Note
--- NOTE | 2025-04-22 04:21 | PD.EDABDPN ---
ED Abdominal Pain RME/HPI General Chief Complaint: Abdominal Pain Stated complaint: left flank pain/unable to urinate Arrival date/time: 04/22/25 02:17 RME / HPI RME / HPI narrative: 04/22/25 02:17 74M with history of HTN, CAD, hypothyroidism, DM, and UC presents to ED with urinary retention starting around 7 PM last night, as well as N/V. Patient was here yesterday diagnosed with 6 mm kidney stone. Patient would also like something for his constipation due to a lot of morphine given yesterday. Patient also thinks he threw up his Flomax. DR MARTINEZ MAIN ED EVALUATION: 74 y/o male with Hx of ulcerative colitis, Type II DM, and kidney stones presents to ED c/o urinary retention, vomiting, and constipation x 9 hours. He also reports left flank pain due to the actively passing kidney stone. He feels bloated and full . states the last time patient urinated was at approximately 7 PM and only urinating about 1 Tbsp. He last took Vicodin at 6 PM. Patient denies fever or any other associated symptoms or aggravating factors. No modifying factors, no radiation, no migration. No pain reported overall. No other concerns or complaints expressed at this time. Related Data Home Medications ?Medication ?Instructions ?Recorded ?Confirmed cholecalciferol (vitamin D3) 50 2,000 unit PO QDAY #0 caps 05/30/15 03/30/24 mcg (2,000 unit) capsule (Vitamin D3) levothyroxine 25 mcg tablet 25 mcg PO [facility] ##90 05/30/15 03/30/24 aspirin 81 mg chewable tablet 81 mg PO QDAY 06/16/18 04/11/21 biotin 5,000 mcg sublingual tablet 5,000 mcg QDAY 06/16/18 04/11/21 coenzyme Q10 100 mg capsule 100 mg PO QDAY 06/16/18 03/30/24 (CoQ-10) clopidogrel 75 mg tablet (Plavix) 75 mg PO EVERYOTHERDAY 01/05/21 03/30/24 mesalamine 1.2 gram tablet,delayed 4.8 g PO BID 01/05/21 03/30/24 release (Lialda) metformin 500 mg tablet,extended 500 mg PO BID 01/05/21 03/30/24 release 24 hr rosuvastatin 10 mg tablet 10 mg PO QDAY 01/05/21 03/30/24 pantoprazole 40 mg tablet,delayed 40 mg PO QDAY 04/11/21 03/30/24 release dapagliflozin propanediol 5 mg 5 mg PO QDAY 03/30/24 03/30/24 tablet (Farxiga) famotidine 20 mg tablet 20 mg PO QDAY 03/30/24 03/30/24 temazepam 15 mg capsule 15 mg PO QDAY PRN Anxiety 03/30/24 03/30/24 Held on 03/30/24. Instructions: Resume on 03/31/24. vit C 250 mg-vit E 90 mg-zinc 40 1 tab PO BID 03/30/24 03/30/24 mg-copper 1 lb-hipqpu-wtqeli capsule (PreserVision AREDS-2) Previous Rx's ?Medication ?Instructions ?Recorded acetaminophen 300 mg-codeine 30 mg 1 tab PO BID PRN pain #14 tabs 09/30/23 tablet Held on 03/30/24. Instructions: Resume on 03/31/24. hydrocodone 5 mg-acetaminophen 325 1 tab PO Q6H PRN pain #14 tabs 04/21/25 mg tablet tamsulosin 0.4 mg capsule 0.4 mg PO QDAY #14 caps 04/21/25 Allergies Allergy/AdvReac Type Severity Reaction Status Date / Time lisinopril Allergy Intermediate Headache Verified 04/20/25 18:43 valsartan Allergy Intermediate Headache Verified 04/20/25 18:43 azathioprine Allergy Nausea Verified 04/20/25 18:43 sulfasalazine Allergy Anaphylaxis Verified 04/20/25 18:43 Review of Systems Review of Systems Systems Reviewed: All systems reviewed, normal except as documented Past Medical History Past Medical History CARDIAC: Positive Coronary Artery Disease and Hypercholesterolemia GASTROINTESTINAL: Positive Gastrointestinal Disorders and Colitis MUSCULOSKELETAL: Positive Musculoskeletal Disorders ENDOCRINE: Positive Diabetes Mellitus Type 2 and Hypothyroidism OTHER HISTORY: Positive Shingles, Mumps and Cancer Surgical History SURGICAL: Positive Cardiac Surgery, Coronary Stent and Vasectomy ED Exam Narrative Physical exam: GENERAL APPEARANCE: alert and oriented x 4, well-developed, well-nourished, no acute distress VITALS: All vitals were reviewed and the pulse ox is 96% on room air, which is normal according to my interpretation. HEENT: Normocephalic, atraumatic; pupils equal, round, reactive to light; EOMI; mucous membranes pink, moist; oropharynx clear NECK: Supple LUNGS: CTABL; no wheezes, no rales, no rhonchi HEART: Regular rate, regular rhythm; normal S1, S2; no murmurs ABDOMEN: mildly distended; normal BS; soft, mildly diffused tenderness, no guarding, no rebound; no masses, no organomegaly, no hernia BACK: no CVA tenderness EXTREMITIES: atraumatic; no edema NEUROLOGIC: awake; alert and oriented x4; cranial nerves II-XII grossly intact; no focal sensory or motor deficits PSYCHIATRIC: appropriate mood and affect SKIN: warm, dry, normal color; no rashes Course Quality Measures none Orders Category Date Time Status Catheter [Urinary Catheter] QS Care 04/22/25 03:26 Active Enema Administration NOW Care 04/22/25 03:26 Active Ramesh to Leg Bag Routine Care 04/22/25 03:27 Ordered XR abdomen series w chest 1V Stat Exams 04/22/25 03:40 Taken CBC Stat Lab 04/22/25 03:37 Completed CMP [Comprehensive Metabolic Panel] Stat Lab 04/22/25 03:37 Completed Urinalysis Stat Lab 04/22/25 05:12 Received Urine Culture Stat Lab 04/22/25 05:12 Received Acetaminophen Tab [Tylenol ES Tab] Med 04/22/25 05:17 Discontinued 1,000 mg PO X1 ONE Ondansetron Inj [Zofran Inj] Med 04/22/25 04:24 Discontinued 4 mg IVP X1 ONE Ondansetron Odt [Zofran Odt] Med 04/22/25 03:26 Discontinued 4 mg PO X1 ONE Sodium Chloride 0.9% 1000 ml [Ns] 1,000 ml Med 04/22/25 04:24 Discontinued IV 999 mls/hr Sodium Chloride 0.9% 1000 ml [Ns] 1,000 ml Med 04/22/25 05:18 Active IV 999 mls/hr Vital Signs Vital signs: Vital Signs Temperature 97.6 F 04/22/25 02:26 Pulse Rate 72 04/22/25 02:26 Respiratory Rate 18 04/22/25 02:26 Blood Pressure 121/66 04/22/25 02:26 Pulse Oximetry (%) 96 04/22/25 02:26 Oxygen Delivery Method Room Air 04/22/25 02:26 Abdominal Pain MDM MDM Narrative MDM Narrative:: Scribe Attestation: I, Page Kat, am scribing for and in the presence of Dr. Martinez. Provider Notation: Although this document has been carefully reviewed, there may still be some phonetic and other typographical errors.? These errors are purely grammatical due to imperfections in the software program and should not be construed in any way to? compromise the substance of the patient's medical care during this visit. Patient data External records reviewed:: [facility] previous records (Reviewed prior ED records from 04/21/25. Patient was seen for Left ureteral calculus.) Clinical information provided by:: patient and spouse () Social determinants that could affect healthcare access:: none Patient has the following chronic illnesses:: Coronary Artery Disease, Hypercholesterolemia, Colitis, Diabetes Mellitus Type 2 and Hypothyroidism How is presenting disease/condition affected by chronic disease/condition?: exacerbated by Evaluation data The following diagnostics were reviewed and interpreted by me:: lab results and radiology exam(s) Lab and/or radiology exams considered but not ordered:: None Interpretation Summary: RADIOLOGY Chest/Abdomen X-Ray: Pending official radiology report. Medications / Prescriptions Medications or Prescriptions considered but not ordered:: None Medication administrations:: Medication Administration History Sodium Chloride (Ns) 1,000 mls @ 999 mls/hr IV .Q1H1M ONE Stop: 04/22/25 06:18 Discontinued Medications Acetaminophen (Acetaminophen 500 Mg Tablet) 1,000 mg PO X1 ONE Stop: 04/22/25 05:18 Sodium Chloride (Ns) 1,000 mls @ 999 mls/hr IV .Q1H1M ONE Stop: 04/22/25 05:24 Last Admin: 04/22/25 04:42 Dose: 999 mls/hr Documented By: ADEN Ondansetron HCl (Ondansetron Odt 4 Mg Tabrap) 4 mg PO X1 ONE; Protocol Stop: 04/22/25 03:27 Last Admin: 04/22/25 04:43 Dose: Not Given Documented By: ADEN Non-Admin Reason: Other, see note Ondansetron HCl (Ondansetron Inj 2 Mg/Ml Inj 2 Ml) 4 mg IVP X1 ONE Stop: 04/22/25 04:25 Last Admin: 04/22/25 04:42 Dose: 4 mg Documented By: ADEN See above if any. Consultations Consultation(s) initiated? (list below): No Diagnosis Differential diagnosis abdominal pain: abdominal pain, calculus of kidney, constipation, diverticulitis, gastroenteritis and small bowel obstruction Most likely diagnosis given after review of the tests above:: Vomiting, constipation. Admission Indicated Admission indicated?: not indicated Explain why admission is indicated or not indicated:: Pending re-evaluation and final disposition. Admission Request Was there a request for admission?: No Disposition Plan Disposition Plan: other (specify) (Sign-out to oncoming ED physician at 6 AM.) Discharge Plan Prescriptions/Referrals Prescriptions/Med Rec: No Action levothyroxine 25 mcg Tablet 25 mcg PO QAM Qty: 90 cholecalciferol (vitamin D3) [Vitamin D3] 2,000 UNIT capsule 2,000 unit PO QDAY Qty: 0 clopidogrel [Plavix] 75 mg Tablet 75 mg PO EVERYOTHERDAY metformin 500 mg Tablet Extended Release 24 Hr 500 mg PO BID rosuvastatin 10 mg Tablet 10 mg PO QDAY mesalamine [Lialda] 1.2 gram Tablet,Delayed Release (Dr/Ec) 4.8 g PO BID aspirin 81 mg Tablet,Chewable 81 mg PO QDAY coenzyme Q10 [CoQ-10] 100 mg Capsule 100 mg PO QDAY biotin 5,000 mcg Tablet, Sublingual 5,000 mcg QDAY pantoprazole 40 mg Tablet,Delayed Release (Dr/Ec) 40 mg PO QDAY famotidine 20 mg tablet 20 mg PO QDAY Patient Comments: TAKE 1 TABLET BY MOUTH TWICE A DAY temazepam 15 mg Capsule 15 mg PO QDAY PRN (Reason: Anxiety) PreserVision AREDS-2 250-90-40-1 mg Capsule 1 tab PO BID dapagliflozin propanediol [Farxiga] 5 mg tablet 5 mg PO QDAY Patient Comments: TAKE 1 TABLET BY MOUTH EVERY DAY tamsulosin 0.4 mg capsule 0.4 mg PO QDAY Qty: 14 0RF hydrocodone-acetaminophen 5-325 mg tablet 1 tab PO Q6H MDD 9 PRN (Reason: pain) Qty: 14 0RF acetaminophen-codeine 300-30 mg tablet 1 tab PO BID PRN (Reason: pain) Qty: 14 0RF Referrals: Chance Somers MD [Primary Care Provider] - In 1 week Problem List Clinical Impression: Constipation, Vomiting Patient/Caregiver Discharge Instructions Print Language: Armenian
[2025-04-22] MEDS: ONDANSETRON INJ 2 MG/ML INJ 2 ML 4 MG IVP (04:42)
[2025-04-22] MEDS: SODIUM CHLORIDE 0.9% 1000 ML 1,000 ML 999 ML IV ×2 (04:42→05:37)
[2025-04-22 05:32] LABS: Collection Type, Urine Catheter; Squamous Epithelial Cell,Urine 0 /hpf (0-5)
[2025-04-22] MEDS: ACETAMINOPHEN 500 MG TABLET 1000 MG PO (05:34)
[2025-04-22 05:39] LABS: Bilirubin,Urine Negative (Negative); Blood,Urine 3+ (Negative); Clarity,Urine Clear (Clear/Hazy); Color,Urine Yellow (Lt Yel-Yel); Glucose, Urine Negative (Negative); Ketones,Urine 1+ (Negative); Leukocyte Esterase,Urine Negative (Negative); Nitrite,Urine Negative (Negative); PH,Urine 6.0 (5.0-7.0); Protein,Urine 1+ (Neg - Trace); RBC,Urine 305 /hpf (0-3); Specific Gravity,Urine 1.036 (1.001-1.035); Urobilinogen,Urine Negative mg/dL (0.0-1.0); WBC,Urine 9 /hpf (0-5)
--- NOTE | 2025-04-22 06:28 | PD.EDADDENDU ---
Emergency Room Addendum Addendum Narrative: 0600: Care assumed from Dr. Martinez, the previous shift emergency physician. Past medical, surgical, social and family history reviewed. Vitals and home medications reviewed. I will assume the care of the patient at this time, pending radiology reports. Please refer to the emergency department record for history and examination from initial visit.?The following addendum documentation note is intended to reflect any pending information, findings, or radiology results not included in the patient?s initial chart. 0838: Patient states he has had constipation with left sided abdominal pain. States he was evaluated here 2 days ago for similar pain and had a CT scan showing a 6 mm left ureteral calculus. Returned today for hematuria and XR of abdomen showed a 3mm left ureteral calculus. Plan to consult with urologist for possible ureteral stent placement and admission. 0845: I spoke with urologist Dr. Pearson. Discussed patients PMHx, HPI, ED course, exam findings, labs, and radiology results. He is requesting a copy of chart for review. Agrees to consult. 1025: I spoke with resident Dr. Lane working with Dr. Stafford. Discussed patients PMHx, HPI, ED course, exam findings, labs, and radiology results. The hospitalist agree to accept the patient for admission.
[2025-04-22] MEDS: MAGNESIUM CITRATE 300 ML BTL PO (06:45)
[2025-04-22] MEDS: SODIUM CHLORIDE 0.9% 1000 ML 1,000 ML 80 ML IV (13:35)
[2025-04-22] MEDS: TAMSULOSIN HCL 0.4 MG CAPSULE PO (13:36)
[2025-04-22] MEDS: LACTULOSE SYRUP 20 GM/30 ML UDC 10 GM PO (13:36)
--- NOTE | 2025-04-22 13:36 | ESHP_ITS ---
Documentation for date of: 04/22/25 [facility] History of Present Illness Chief complaint: abdominal pain History of present illness: Matt Varma is 74 yr male with PMH of [id number] type 2 diabetes, ulcerative colitis, CAD s/p PCI (3 stents) on Plavix, hypothyroidism presenting to ED on 04/22/2025 with chief complaint of left-sided abdominal pain. Remitting pain started on Saturday afternoon which was nonradiating, sharp in nature, associated with nausea and vomiting which occurred 4?5 times since then. He denies any dysuria, hematuria, any history of kidney stones in the past. Pain was 10/10 at its worst. Also complaining of constipation, decreased appetite since onset of the symptoms on Saturday. He has noticed decreased urine output with a distended abdomen. Patient follows cardiology Dr. Colon and currently taking Plavix for CAD history status post stents. Last appointment outpatient about 1 month ago and workup with stress test was negative. He denies being on any antihypertensives. In ED, initial vitals were stable. Notable leukocytosis 13, anemia hemoglobin 11.2, MCV 87. Sodium 129, potassium 4.2, ROGELIO with creatinine 1.5 (Baseline appears to be around 1.0), BUN 20, GFR 48 glucose 181, UA with hematuria. Negative for UTI. CT A/P shows left hydronephrosis with 6 mm kidney stone in proximal left ureter. Prostate normal in size, no bowel obstruction. Significant amount of stool through the colon noted on chest x-ray. He was given 2 L NS bolus, Zofran, Tylenol while in the ED. Urology Dr. Pearson was consulted for evaluation. Patient to be admitted for ROGELIO secondary to left-sided hydronephrosis in setting of ureter stone. PMH: As noted above PSH: Denies Family Hx: Father from [place] Social: Lives with his , denies smoking, denies drinking Allergies lisinopril, valsartan, azathioprine, sulfasalazine Meds: Mesalamine, Plavix, levothyroxine (med rec pending) Review of Systems Review of Systems Systems Reviewed: All systems reviewed, normal except as documented Exam Vital Signs Temp Pulse Resp BP Pulse Ox O2 Del Method 98.4 F 76 16 155/66 H 94 L Room Air 04/22/25 12:27 04/22/25 12:27 04/22/25 12:27 04/22/25 12:27 04/22/25 12:27 04/22/25 12:27 Narrative Exam General: Elderly male, No acute distress, cooperative HEENT: NCAT, No JVD noted. Mucosa dry. Pupils are equal and reactive to light bilaterally Cardiovascular: Normal S1 and S2. Regular rate and rhythm. Respiratory: Lungs are clear to auscultation bilaterally. No wheezing or crackles heard. Abdomen: Soft, nontender, mild distension, normal bowel sounds. : gamez in place, no hematuria Skin: Warm to touch, dry, no rashes noted Musculoskeletal: No gross injuries. Able to move all 4 extremities. No pitting edema Neuro: Alert and oriented x3. No focal neuro deficits. Psych: Normal affect and mood Results: Labs 04/23/25 04:37 04/23/25 04:37 Labs: Short CBC 04/22/25 Range/Units 03:37 WBC 12.9 H (3.8-10.6) Thou/mm3 Hgb 11.2 L (13.5-16.0) g/dL Hct 31.2 L (41.0-53.0) % Plt Count 245 (140-440) Thou/mm3 BMP 04/22/25 03:37 Sodium 129 L Potassium 4.2 Chloride 97 L Carbon Dioxide 22.6 BUN 20 Creatinine 1.5 H Glucose 181 H Calcium 8.3 D Liver Function 04/22/25 Range/Units 03:37 Total Bilirubin 1.3 H (0.3-1.2) mg/dL AST 14 (0-34) U/L ALT 12 (10-49) U/L Alkaline Phosphatase 70 (46-116) U/L Albumin 4.1 D (3.4-4.8) gm/dL Urine 04/22/25 Range/Units 05:12 Urine Color Yellow (Lt Yel-Yel) Urine Clarity Clear (Clear/Hazy) Urine pH 6.0 (5.0-7.0) Ur Specific [place] 1.036 H (1.001-1.035) Urine Protein 1+ A (Neg - Trace) Urine Glucose (UA) Negative (Negative) Quality Measures Quality Measures none Advance care planning discussed with:: patient Medications Home Medications and Allergies Home Medications ?Medication ?Instructions ?Recorded ?Confirmed ?Type cholecalciferol (vitamin D3) 50 2,000 unit PO QDAY #0 caps 05/30/15 04/22/25 History mcg (2,000 unit) capsule (Vitamin D3) levothyroxine 25 mcg tablet 25 mcg PO QAM ##90 5 04/22/25 History coenzyme Q10 100 mg capsule 100 mg PO QDAY 06/16/18 History (CoQ-10) clopidogrel 75 mg tablet (Plavix) 75 mg PO EVERYOTHERD AY 01/05/21 04/22/25 History mesalamine 1.2 gram tablet,delayed 4.8 g PO BID 04/22/25 History release (Lialda) metformin 500 mg tablet,extended 500 mg PO BID 1 04/22/25 History release 24 hr temazepam 15 mg capsule 15 mg PO QDAY PRN Anxiety 04/22/25 History vit C 250 mg-vit E 90 mg-zinc 40 1 tab PO BID 03/30/24 04/22/25 History mg-copper 1 [id number] capsule (PreserVision AREDS-2) Allergies Allergy/AdvReac Type Severity Reaction Status Date / Time lisinopril Allergy Intermediate Headache Verified 04/20/25 18:43 valsartan Allergy Intermediate Headache Verified 04/20/25 18:43 azathioprine Allergy Nausea Verified 04/20/25 18:43 sulfasalazine Allergy Anaphylaxis Verified 04/20/25 18:43 Visit Medications Acetaminophen (Acetaminophen 325 Mg Tablet) 650 mg PO Q6H PRN PRN Reason: Fever >100.3 or pain 1-4 Stop: 05/22/25 13:03 Dextrose (Dextrose 50%-Water Inj 50 Ml Syringe) 25 ml IV Q15MIN PRN PRN Reason: BG 50-70 responsive npo pt Stop: 05/22/25 13:16 Dextrose (Dextrose 50%-Water Inj 50 Ml Syringe) 50 ml IV Q15MIN PRN PRN Reason: BG <50 OR BG <70 & pt unresponsive Stop: 05/22/25 13:16 Glucagon (Glucagon Inj 1 Mg Vial) 1 mg IM Q15MIN PRN PRN Reason: BG <70, and no IV access Sodium Chloride (Ns) 1,000 mls @ 80 mls/hr IV .[id number] ONE Stop: 04/23/25 01:41 Insulin Human Lispro (Insulin Lispro (Admelog) 1 Unit/0.01 Ml Unit) 0 unit SC AC [facility]; Protocol Stop: 05/22/25 16:59 Lactulose (Lactulose Syrup 20 Gm/30 Ml Udc) 10 gm PO QDAY [facility]; Protocol Stop: 05/22/25 13:14 Morphine Sulfate (Morphine Sulf Inj 10 Mg/Ml Vial) 2 mg IVP Q4HR PRN PRN Reason: pain 7-10 Ondansetron HCl (Ondansetron Inj 2 Mg/Ml Inj 2 Ml) 4 mg IVP Q6H PRN; Protocol PRN Reason: NAUSEA OR VOMITING Stop: 05/22/25 13:03 Tamsulosin HCl (Tamsulosin Hcl 0.4 Mg Capsule) 0.4 mg PO DAILY [facility] Stop: 05/22/25 13:14 Discontinued Medications Acetaminophen (Acetaminophen 500 Mg Tablet) 1,000 mg PO X1 ONE Stop: 04/22/25 05:18 Last Admin: 04/22/25 05:34 Dose: 1,000 mg Sodium Chloride (Ns) 1,000 mls @ 999 mls/hr IV .Q1H1M ONE Stop: 04/22/25 05:24 Last Infusion: 04/22/25 05:49 Dose: Infused Sodium Chloride (Ns) 1,000 mls @ 999 mls/hr IV .Q1H1M ONE Stop: 04/22/25 06:18 Last Infusion: 04/22/25 07:10 Dose: Infused Magnesium Citrate (Magnesium Citrate 300 Ml Btl) 300 ml PO X1 ONE Stop: 04/22/25 05:51 Last Admin: 04/22/25 06:45 Dose: 300 ml Ondansetron HCl (Ondansetron Odt 4 Mg Tabrap) 4 mg PO X1 ONE; Protocol Stop: 04/22/25 03:27 Last Admin: 04/22/25 04:43 Dose: Not Given Ondansetron HCl (Ondansetron Inj 2 Mg/Ml Inj 2 Ml) 4 mg IVP X1 ONE Stop: 04/22/25 04:25 Last Admin: 04/22/25 04:42 Dose: 4 mg Assessment & Plan Plan Matt Varma is 74 yr male with PMH of [id number]-[id number] type 2 diabetes, ulcerative colitis, CAD s/p PCI (3 stents) on Plavix, hypothyroidism presenting to ED on 04/22/2025 with chief complaint of left-sided abdominal pain. He has noticed decreased urine output with a distended abdomen. Urology Dr. Pearson was consulted for evaluation. Patient to be admitted for ROGELIO secondary to left-sided hydronephrosis in setting of ureter stone. #ROGELIO #Left hydronephrosis #Uterolithiasis He has been complaining of left abdominal pain, decreased urine output, vomiting since Saturday. Denies any hematuria. CT abdomen pelvis confirmed 6 mm stone in left ureter and hydronephrosis left kidney. Denies any dysuria at this time. reatinine 1.5 (Baseline appears to be around 1.0), BUN 20, GFR 48. ROGELIO likely intrarenal in setting of stone, possible prerenal component as well as he has been having multiple episodes of vomiting and decreased p.o. intake since past few days. ?Consulted urology Dr. Pearson, appreciate recommendations ? Maintenance fluids NS 80 cc/hr ?Tamsulosin 0.4 mg daily ? Monitor MER's ? Continue Gamez catheter ? Strain urine for stone passage ? IV morphine 2 mg q4hr for pain #CAD s/p 3 stents Patient follows cardiology Dr. Colon and currently taking Plavix for CAD history status post stents. Last appointment outpatient about 1 month ago and workup with stress test was negative. He denies being on any antihypertensives. -Hold Plavix 75 mg daily in setting of hematuria #HLD Patient takes rosuvastatin 10 mg p.o. daily ? Resume atorvastatin 40 mg daily #Hypothyroidism Most recent TSH 04/12/25 normal (1.67) Resume levothyroxine 25 mcg daily #Ulcerative colitis Is not a appear to be an acute flare, well controlled, denies any blood in the stool, denies any diarrhea but does endorse constipation since Saturday. Constipation more likely due to bladder distention. -Mesalamine 4.8 g BID #Jmo-[place]-otxhlqsjn type 2 diabetes, well-controlled On admission initial glucose 181. Last A1c 5.5 on 04/12/25. Patient takes metformin 500 twice daily and dapagliflozin 5 mg daily at home. -Held home medications -Bedside blood glucose checks ACHS -Insulin lispro sliding scale -Carb consistent low diet Health maintenance: Dispo: medsurg, fluids for ROGELIO and kidney stone. FEN: low carb DVT prophylaxis: SCDs CODE STATUS: Full code The patient's management plan was discussed with my attending physician Dr. Stafford. Marilynn Gonzalez, PGY-1 Attending Provider Attestation/Addendum I have examined the patient, reviewed labs and imaging findings, discussed the case with the resident(s), and reviewed entered orders. I agree with the plan of care as outlined in this note, with these additional summaries/recommendations: After examination of the patient and review of the clinical data, I feel that this patient needs admission to the hospital for further treatment and evaluation. Patient is a 74-year-old male with a medical history of AWAIS, diabetes mellitus type 2, GERD, hypothyroidism, ulcerative colitis, hyperlipidemia, BPH, and CAD presents to [facility] emergency department on 04/22/2025 with flank pain and nausea/vomiting. Patient seen at bedside. He endorses flank pain and nausea plus vomiting. Patient diagnosed with ureterolithiasis. CT abdomen and pelvis revealed mild to moderate left hydronephrosis secondary to 6 mm proximal left ureteral calculus. Urology consulted by emergency room provider and has agreed to consult on the case. He recommends admission, IV fluids, pain management, and patient started on Flomax. Appreciate urology recs on further management. Hydronephrosis does not seem severe enough that he would require nephrostomy tube at this time. Patient also noted to have hematuria which is most likely secondary to Gamez catheter placement in the ED +/- urolithiasis. Continue to monitor urinary output closely. Patient noted to have ROGELIO with creatinine 1.5 and BUN 20. More likely secondary to prerenal azotemia from poor oral intake rather than kidney stone. Start IV fluids and we will repeat renal panel this afternoon. Start insulin sliding scale with Accu-Cheks for diabetes mellitus type 2. Target blood sugar of 140-180 while hospitalized. A1c currently well-controlled. We will hold home Plavix for now given hematuria and will resume when able. Minimal hyponatremia and monitor for now. Patient updated on the plan and in agreement. All questions answered to satisfaction. Please see residents note for additional details of management. Dr. Rivera MD
[2025-04-22 16:27] LABS: Anion Gap 9 (7-16); BUN/Creatinine Ratio 13 Ratio (12-20); Blood Urea Nitrogen 18 mg/dL (9-23); Calcium 8.0 mg/dL (8.3-10.6); Carbon Dioxide 23.9 mMol/L (20.0-31.0); Chloride 99 mMol/L (98-107); Creatinine (Component) 1.4 mg/dL (0.6-1.3); Estimated Creatinine Clearance 36.1 mL/min (>60); Glucose 175 mg/dL (74-106); Osmolality,Calculated 270 (275-295); Potassium 4.4 mMol/L (3.4-5.1); Sodium 132 mMol/L (136-145); eGFR 52 See Note
[2025-04-22] MEDS: INSULIN LISPRO (AdmeLOG) 1 UNIT/0.01 ML UNIT SC (17:09)
[2025-04-23] VITALS (8 sets, daily range): BP systolic 137–161; BP diastolic 68–88; PULSE 80–94; RESP 16–94; TEMP 36.2–36.6; O2SAT 93–944
[2025-04-23] MEDS: ACETAMINOPHEN 325 MG TABLET 650 MG PO (04:03)
[2025-04-23 05:22] LABS: Basophils # (Auto) 0.0 Thou/mm3 (0.0-0.2); Basophils % (Auto) 0 % (0-2.5); Eosinophils # (Auto) 0.0 Thou/mm3 (0.0-0.5); Eosinophils % (Auto) 0 % (0-10); Hematocrit 31.5 % (41.0-53.0); Hemoglobin 11.2 g/dL (13.5-16.0); Immature Granulocytes Auto 0.07 Thou/mm3 (0.00-0.00); Lymphocytes # (Auto) 0.4 Thou/mm3 (1.0-4.8); Lymphocytes % (Auto) 3 % (10-50); Mean Corpuscular HGB Conc 35.6 g/dl (31.0-37.0); Mean Corpuscular Hemoglobin 30.6 pg (25.0-35.0); Mean Corpuscular Volume 86 fL (80-100); Monocytes # (Auto) 1.2 Thou/mm3 (0.0-0.8); Monocytes % (Auto) 9 % (0-12); Neutrophils # (Auto) 11.3 Thou/mm3 (1.8-7.7); Neutrophils % (Auto) 87 % (37-80); Nucleated Red Blood Cell # 0.00 Thou/mm3 (0.00-0.00); Nucleated Red Blood Cell % 0 /100 WBC (0); Platelet Count 252 Thou/mm3 (140-440); RDW Standard Deviation 40.1 fL (35.1-43.9); Red Blood Count 3.66 Miln/mm3 (4.50-5.90); White Blood Count 13.0 Thou/mm3 (3.8-10.6)
[2025-04-23 05:45] LABS: Alanine Aminotransferase 10 U/L (10-49); Albumin, Serum 3.9 gm/dL (3.4-4.8); Albumin/Globulin Ratio 2.4 (1.2-2.2); Alkaline Phosphatase 67 U/L (46-116); Anion Gap 11 (7-16); Aspartate Amino Transferase 14 U/L (0-34); BUN/Creatinine Ratio 12 Ratio (12-20); Bilirubin,Total 1.3 mg/dL (0.3-1.2); Blood Urea Nitrogen 16 mg/dL (9-23); Calcium 8.0 mg/dL (8.3-10.6); Calcium (Corrected) 8.1 mg/dL (8.5-10.1); Carbon Dioxide 20.7 mMol/L (20.0-31.0); Chloride 99 mMol/L (98-107); Creatinine (Component) 1.3 mg/dL (0.6-1.3); Estimated Creatinine Clearance 38.9 mL/min (>60); Globulin 1.6 gm/dL (2.3-3.5); Glucose 158 mg/dL (74-106); Magnesium 2.3 mg/dL (1.6-2.6); Osmolality,Calculated 266 (275-295); Phosphorous 2.2 mg/dL (2.4-5.1); Potassium 3.7 mMol/L (3.4-5.1); Sodium 131 mMol/L (136-145); Total Protein 5.5 gm/dL (5.7-8.2); eGFR 57 See Note
[2025-04-23] MEDS: INSULIN LISPRO (AdmeLOG) 1 UNIT/0.01 ML UNIT SC ×3 (07:17→16:36)
[2025-04-23 08:09] LABS: Parathyroid Hormone Intact 181.3 pg/ml (18.5-88.0)
[2025-04-23 08:13] LABS: Vitamin D 25 Hydroxy Total 41.6 ng/mL (7.3-40.2)
[2025-04-23] MEDS: LEVOTHYROXINE SODIUM 25 MCG TABLET PO (08:49)
[2025-04-23] MEDS: NAPH,KPH MBDB 1 PACKET (1.5 GM) PO (08:49)
[2025-04-23] MEDS: TAMSULOSIN HCL 0.4 MG CAPSULE PO (08:49)
[2025-04-23] MEDS: LACTULOSE SYRUP 20 GM/30 ML UDC 10 GM PO ×3 (08:50→21:08)
[2025-04-23] MEDS: SODIUM CHLORIDE 0.9% 1000 ML 1,000 ML 75 ML IV (08:50)
--- NOTE | 2025-04-23 09:12 | PC.SS ---
Patient Matt Varma is a 74 Year old male admitted for Kidney Stone ROGELIO. SS met with patient at bedside to discuss discharge plan and review demographic information. Patient reports he lives at home with his , Ro Vrama who he reports is his surrogate decision maker, [phone]. Patient reports he does not utilize any source of DME to assist with ambulation. Patient reports he is able to complete all ADL's independently. Patient reports his PCP is Chance De Santiago. [facility] At time of discharge patient will discharge home. family will provide transportation. Discharge plan: Home Next of kin: , Ro Varma
--- NOTE | 2025-04-23 09:19 | PD.RESPRO ---
Documentation for date of: 04/23/25 Subjective Subjective Interval history: Patient was seen and examined at bedside. No acute overnight events. WBC is about the same, 13.0, patient does not endorse any fever, chills, any send or symptoms of infection. Renal panel significantly improved, patient is having an adequate urine output, although urine is a little concentrated, creatinine down from 1.4-1.3, further CMP revealed electrolyte disbalance which was replaced, will continue close monitor and replace as needed, currently patient is on maintenance NS 75 cc/h, pending Dr Pearson recommendations. Also patient was complaining of abdominal distention and constipation, abdominal x-ray was ordered for evaluation, rule out any SBO, however patient passes gas, overnight patient had enema per shift production associate, had little output. Bowel regimen lactulose scheduled started. Will continue close monitor and follow-up with urology recommendations. Exam Vital Signs Temp Pulse Resp BP Pulse Ox O2 Del Method 97.6 F 80 16 159/80 H 944 H Room Air 04/23/25 08:00 04/23/25 08:49 04/23/25 08:00 04/23/25 08:49 04/23/25 08:00 04/23/25 04:00 Narrative Exam GENERAL: no acute distress, AAO x3, well nourished. HEENT: Head AT/ NC. Mucous membranes moist. PERRL. NECK: Supple, no lymphadenopathy, no carotid bruits. CARDIOVASCULAR: RRR. Normal S1/S2, No m/r/g. No pitting edema of bilateral LEs. RESPIRATORY: CTAB. No wheezing, rhonchi, crackles. GASTROINTESTINAL: Abdomen soft, non tender no palpable masses. Bowel sounds present in all 4 quadrants. Gamez catheter in place, hematuria noted, abdomen slightly distended, but not MUSCULOSKELETAL:? No cyanosis or edema, no visible joint swelling. NEUROLOGICAL: CN II-XII grossly intact. No focal deficits. Sensation intact, symmetric. PSYCHIATRIC: Awake and alert, not agitated, normal mood and affect. INTEGUMENTARY: No obvious rashes, no jaundice, normal turgor. Objective Labs 04/24/25 05:24 04/23/25 19:13 Labs: Laboratory Results - last 24 hr 04/22/25 04/23/25 15:59 04:37 WBC 13.0 H RBC 3.66 L Hgb 11.2 L Hct 31.5 L MCV 86 MCH 30.6 MCHC 35.6 RDW Std Deviation 40.1 Plt Count 252 Neut % (Auto) 87 H Lymph % (Auto) 3 L [place] % (Auto) 9 Eos % (Auto) 0 Baso % (Auto) 0 Neut # (Auto) 11.3 H Lymph # (Auto) 0.4 L [place] # (Auto) 1.2 H Eos # (Auto) 0.0 Baso # (Auto) 0.0 Immature Gran # (Auto) 0.07 H Absolute Nucleated RBC 0.00 Immature Gran % 1 H Nucleated RBC % 0 Sodium 132 L 131 L Potassium 4.4 3.7 D Chloride 99 99 Carbon Dioxide 23.9 20.7 Anion Gap 9 11 BUN 18 16 Creatinine 1.4 H 1.3 Estim Creat Clear Calc 36.1 L 38.9 L eGFR 52 L 57 L BUN/Creatinine Ratio 13 12 Glucose 175 H 158 H Calculated Osmolality 270 L 266 L Calcium 8.0 L 8.0 L Corrected Calcium 8.1 L Phosphorus 2.2 L Magnesium 2.3 Total Bilirubin 1.3 H AST 14 ALT 10 Alkaline Phosphatase 67 Total Protein 5.5 L Albumin 3.9 Globulin 1.6 L Albumin/Globulin Ratio 2.4 H 25-OH Vitamin D Total 41.6 H PTH Intact 181.3 H Quality Measures Quality Measures none Advance care planning discussed with:: patient Assessment & Plan Assessment Current Active Medications: Generic Name Dose Route Start Last Admin Trade Name Freq PRN Reason Stop Dose Admin Acetaminophen 650 mg 04/22/25 13:04 04/23/25 04:03 Acetaminophen 325 Mg Tablet PO 05/22/25 13:03 650 mg Q6H PRN Administration Fever >100.3 or pain 1-4 Amlodipine Besylate 2.5 mg 04/23/25 09:00 04/23/25 08:49 Amlodipine Besylate 2.5 Mg Tablet PO 05/23/25 08:59 2.5 mg QDAY PAULA Administration Mesalamine [Lialda] 0 ea 04/23/25 09:00 1.2 Gram Tablet, PO 05/23/25 08:59 Delayed Release BID PAULA Dextrose 25 ml 04/22/25 13:17 Dextrose 50%-Water Inj 50 Ml Syringe IV 05/22/25 13:16 Q15MIN PRN BG 50-70 responsive npo pt Dextrose 50 ml 04/22/25 13:17 Dextrose 50%-Water Inj 50 Ml Syringe IV 05/22/25 13:16 Q15MIN PRN BG <50 OR BG <70 & pt unresponsive Glucagon 1 mg 04/22/25 13:17 Glucagon Inj 1 Mg Vial IM Q15MIN PRN BG <70, and no IV access Sodium Chloride 1,000 mls @ 75 mls/hr 04/23/25 07:59 04/23/25 08:50 Ns IV 04/23/25 21:18 75 mls/hr .[id number] ONE Administration Insulin Human Lispro 0 unit 04/22/25 17:00 04/23/25 07:17 Insulin Lispro (Admelog) 1 Unit/0.01 Ml Unit SC 05/22/25 16:59 1 unit AC PAULA Administration Protocol Lactulose 10 gm 04/23/25 08:00 04/23/25 08:50 Lactulose Syrup 20 Gm/30 Ml Udc PO 05/23/25 07:59 10 gm TID PAULA Administration Protocol Levothyroxine Sodium 25 mcg 04/23/25 08:00 04/23/25 08:49 Levothyroxine Sodium 25 Mcg Tablet PO 05/23/25 07:59 25 mcg ACBR PAULA Administration Morphine Sulfate 2 mg 04/22/25 13:15 Morphine Sulf Inj 10 Mg/Ml Vial IVP Q4HR PRN pain 7-10 Home Medication- 4.8 gm 04/23/25 09:00 04/23/25 08:54 Please Speak With PO 05/23/25 08:59 Not Given Patient Caregiver To BID PAULA Have Rx Brought To [facility] Ondansetron HCl 4 mg 04/22/25 13:04 Ondansetron Inj 2 Mg/Ml Inj 2 Ml IVP 05/22/25 13:03 Q6H PRN NAUSEA OR VOMITING Protocol Tamsulosin HCl 0.4 mg 04/22/25 13:15 04/23/25 08:49 Tamsulosin Hcl 0.4 Mg Capsule PO 05/22/25 13:14 0.4 mg DAILY PAULA Administration Plan Matt Varma is 74 yr male with PMH of [id number] type 2 diabetes, ulcerative colitis, CAD s/p PCI (3 stents) on Plavix, hypothyroidism presenting to ED on 04/22/2025 with chief complaint of left-sided abdominal pain. He has noticed decreased urine output with a distended abdomen. Urology Dr. Pearson was consulted for evaluation. Patient to be admitted for ROGELIO secondary to left-sided hydronephrosis in setting of ureter stone. #ROGELIO improving #Left hydronephrosis #Uterolithiasis He has been complaining of left abdominal pain, decreased urine output, vomiting since Saturday. Denies any hematuria. CT abdomen pelvis confirmed 6 mm stone in left ureter and hydronephrosis left kidney. Denies any dysuria at this time. reatinine 1.5 (Baseline appears to be around 1.0), BUN 20, GFR 48. ROGELIO likely intrarenal in setting of stone, possible prerenal component as well as he has been having multiple episodes of vomiting and decreased p.o. intake since past few days. ?Consulted urology Dr. Pearson, appreciate recommendations ? Maintenance fluids to be continued ? Tamsulosin 0.4 mg daily ? Monitor MER's ? Continue Gamez catheter ? Strain urine for stone passage ? IV morphine 2 mg q4hr for pain #Constipation Patient has a history of ulcerative colitis and having on and off diarrhea/constipation Complaining of abdominal distention, however patient passes gas, Abdomen is well-appearing, slightly distended, not tender ? KUB ordered we will follow-up with results ? Bowel regimen started #CAD s/p 3 stents Patient follows cardiology Dr. Colon and currently taking Plavix for CAD history status post stents. Last appointment outpatient about 1 month ago and workup with stress test was negative. He denies being on any antihypertensives. -Hold Plavix 75 mg daily in setting of hematuria #HLD Patient takes rosuvastatin 10 mg p.o. daily ? Resume atorvastatin 40 mg daily #Hypothyroidism Most recent TSH 04/12/25 normal (1.67) Resume levothyroxine 25 mcg daily #Ulcerative colitis Is not a appear to be an acute flare, well controlled, denies any blood in the stool, denies any diarrhea but does endorse constipation since Saturday. Constipation more likely due to bladder distention. -Mesalamine 4.8 g BID #[id number] type 2 diabetes, well-controlled On admission initial glucose 181. Last A1c 5.5 on 04/12/25. Patient takes metformin 500 twice daily and dapagliflozin 5 mg daily at home. -Held home medications -Bedside blood glucose checks ACHS -Insulin lispro sliding scale -Carb consistent low diet Disposition: MedSurg DVT prophylaxis: SCDs in setting of hematuria GI prophylaxis: PPI Diet: Low carb Lines: PIV CODE STATUS:Full code Patient care was discussed with attending physician Dr. Rivera Lane MD PGY-2 Attending Provider Attestation/Addendum I have examined the patient, reviewed labs and imaging findings, discussed the case with the resident(s), and reviewed entered orders. I agree with the plan of care as outlined in this note, with these additional summaries/recommendations: Patient is a 74-year-old male with a medical history of AWAIS, diabetes mellitus type 2, GERD, hypothyroidism, ulcerative colitis, hyperlipidemia, BPH, and CAD presents to [facility] emergency department on 04/22/2025 with flank pain and nausea/vomiting. Patient seen at bedside. No acute overnight events. Today patient reports his abdomen feels distended and has been severely constipated but had 2 small bowel movements this morning. No significant tenderness to palpation throughout. Imaging on admission revealed large amounts of stool throughout the colon and most likely secondary to severe constipation. We will increase bowel regimen and consult gastroenterology, recommendations appreciated. Patient also diagnosed with ureterolithiasis. CT abdomen and pelvis revealed mild to moderate left hydronephrosis secondary to 6 mm proximal left ureteral calculus. Urology consulted by emergency room provider and has agreed to consult on the case. He recommended admission, IV fluids, gamez catheter, pain management, and patient started on Flomax. Appreciate urology recs on further management. Hydronephrosis present and appreciate recommendations on IR nephrostomy tube. Gamez catheter in place and draining appropriate urine although is blood tinged. Patient also noted to have hematuria which is most likely secondary to Gamez catheter placement in the ED +/- urolithiasis. Continue to monitor urinary output closely. Patient noted to have ROGELIO with creatinine 1.5 and BUN 20. More likely secondary to prerenal azotemia from poor oral intake rather than kidney stone. Continue IV fluids and we will repeat renal panel this afternoon. Continue insulin sliding scale with Accu-Cheks for diabetes mellitus type 2. Target blood sugar of 140-180 while hospitalized. A1c currently well-controlled. We will hold home Plavix for now given hematuria and will resume when able. Resume home temazepam as needed for sleep/anxiety. Continue home mesalamine when able for UC. Patient updated on the plan and in agreement. All questions answered to satisfaction. Please see residents note for additional details of management. Dr. Rivera MD
[2025-04-23] MEDS: CALCIUM CARBONATE 600 MG TABLET PO (11:02)
--- NOTE | 2025-04-23 11:50 | XR_ITS ---
Examination: Abdomen AP single view Technique: AP portable supine abdomen, single view Exam date and time: April 23, 2025 1152 hours INDICATIONS: Constipation 2 days. FINDINGS: Air distended small bowel loops in the central abdomen Moderate stool throughout the colon IMPRESSION: Air distended small bowel loops in the central abdomen, clinical correlation advised No free air
--- NOTE | 2025-04-23 15:34 | PC.SS ---
SS follow up note; Pending Dr. Pearson consult. Patient will discharge home when medically cleared.
--- NOTE | 2025-04-23 17:17 | XR_ITS ---
Examination: Retroperitoneal ultrasound, complete Technique: Multiple high resolution grayscale images of the retroperitoneum obtained, including kidneys and bladder. Exam date and time:April 23, 2025 at 1823 hours INDICATIONS: History left flank pain 4 days, mild to moderate left hydronephrosis 6 mm proximal left ureteral calculus on CT stone study April 20, 2025 FINDINGS: Right kidney 10.8 cm renal cortex 1.1 cm Left kidney 12.0 cm renal cortex 1.6 cm No hydronephrosis is demonstrated in either kidney Bladder prevoid volume 636 cc IMPRESSION: No hydronephrosis is demonstrated in either kidney, consider repeat CT scan abdomen and pelvis without contrast to assess whether the prior left ureteral calculus has passed
[2025-04-23] MEDS: cefTRIAXone/D5w 1gm IV premix 1 GM/50 ML BAG IV (17:29)
--- NOTE | 2025-04-23 17:46 | PD.RESDS ---
Planned Discharge Date 04/23/25 DS: Providers Provider Date of admission: 04/22/25 13:04 Primary care physician: Chance Somers MD Admitting Provider: Tato Stafford MD Attending Provider on Admission: Tato Stafford MD Consults: 04/22/25 13:10 Consult to Urology Routine Comment: ROGELIO, kidney stone Consulting Provider: Rey Pearson 04/23/25 11:50 Consult to Gastroenterology Routine Comment: Consulting Provider: Adrian Ayala 04/23/25 17:43 Referral - [facility] [employer] Stat Service Needed for Transfer: Urology Addl Comments:: Mild to moderate left hydronephrosis due to 6 mm proximal left ureteral calculus needed IR nephrostomy tube, IR is not available over the weekend, urology will not be able to see the patient until Saturday. Attending Provider on DC: Tati Lane MD Discharging Provider: Tati Lane MD DS: Diagnosis Problem List Completed Was Problem List Reviewed/Reconciled?: Yes Hospital Course Hospital Course Hospital course: Matt Varma is 74 yr male with PMH of [id number] type 2 diabetes, ulcerative colitis, CAD s/p PCI (3 stents) on Plavix, hypothyroidism presenting to ED on 04/22/2025 with chief complaint of left-sided abdominal pain. Patient was complaining of sharp in nature associated with nausea, vomiting, he also noticed that his urine became darker. He noticed decreased urine output and severely distended abdomen. Patient also stated that he has been constipated. On presentation patient found to have leukocytosis with WBC of 13, anemia, ROGELIO with creatinine of 1.5 baseline appears to be around 1, UA revealed gross hematuria, negative for UTI. CT abdomen/pelvis showed left hydronephrosis with 6 mm stone in the proximal left ureter. Prostate was normal in size, no bowel obstruction. Patient was admitted for management of urolithiasis as well as ROGELIO. Inpatient urology was consulted, stated that soonest he will be able to evaluate the patient is on Saturday, currently patient is on IV fluids and tamsulosin, however still having hematuria, Ramesh is in place. Plavix is on hold. In-house urology was contacted today, reviewed the imaging, and recommended an IR-guided nephrostomy tube placement. However, due to weekend hours, the procedure cannot be performed until Saturday. Given the severity of the patient's symptoms and lack of improvement, it is essential to transfer him to a higher-level care facility for earlier nephrostomy tube placement to relieve his current symptoms. In the meantime, we will proceed with obtaining a renal ultrasound, continuing IV fluids, and providing pain management. Family was informed, transfer process was initiated. #ROGELIO -improving #Left hydronephrosis #Uterolithiasis #CAD s/p 3 stents #HLD #Hypothyroidism #UC #NIIDM Plan for Transfer: Renal Ultrasound will be performed Medications: IV fluids, tamsulosin, pain management (as needed). Status: Stable for transfer, NEEDS NEPHROSTOMY TUBE PLACEMENT. Patient care was discussed with attending physician Dr. Rivera Lane MD PGY-2 I have carefully reviewed this document. Due to imperfections in the voice software, there could be grammatical errors including phonetic/typographic errors. This in no way compromises the medical care the patient is receiving Time Spent with Patient Time attestation: Total time spent providing and/or coordinating discharge services: Time spent: Greater than 30 minutes Exam Vital Signs Temp Pulse Resp BP Pulse Ox O2 Del Method 97.7 F 91 16 144/76 H 97 Room Air 04/23/25 16:04/23/25 16:04/23/25 16:04/23/25 16:04/23/25 16:04/23/25 04:00 Narrative Exam GENERAL: no acute distress, AAO x3, well nourished. HEENT: Head AT/ NC. Mucous membranes moist. PERRL. NECK: Supple, no lymphadenopathy, no carotid bruits. CARDIOVASCULAR: RRR. Normal S1/S2, No m/r/g. No pitting edema of bilateral LEs. RESPIRATORY: CTAB. No wheezing, rhonchi, crackles. GASTROINTESTINAL: Abdomen soft, non tender no palpable masses. Bowel sounds present in all 4 quadrants. Ramesh catheter in place, hematuria noted, abdomen slightly distended, but not MUSCULOSKELETAL:? No cyanosis or edema, no visible joint swelling. NEUROLOGICAL: CN II-XII grossly intact. No focal deficits. Sensation intact, symmetric. PSYCHIATRIC: Awake and alert, not agitated, normal mood and affect. INTEGUMENTARY: No obvious rashes, no jaundice, normal turgor. Discharge Plan Plan Patient Disposition: Xfer Other Prescriptions/Referrals Prescriptions/Med Rec: No Action levothyroxine 25 mcg Tablet 25 mcg PO QAM Qty: 90 cholecalciferol (vitamin D3) [Vitamin D3] 2,000 UNIT capsule 2,000 unit PO QDAY Qty: 0 clopidogrel [Plavix] 75 mg Tablet 75 mg PO EVERYOTHERDAY metformin 500 mg Tablet Extended Release 24 Hr 500 mg PO BID mesalamine [Lialda] 1.2 gram Tablet,Delayed Release (Dr/Ec) 4.8 g PO BID coenzyme Q10 [CoQ-10] 100 mg Capsule 100 mg PO QDAY temazepam 15 mg Capsule 15 mg PO QDAY PRN (Reason: Anxiety) PreserVision AREDS-2 250-90-40-1 mg Capsule 1 tab PO BID tamsulosin 0.4 mg capsule 0.4 mg PO QDAY Qty: 14 0RF hydrocodone-acetaminophen 5-325 mg tablet 1 tab PO Q6H MDD 9 PRN (Reason: pain) Qty: 14 0RF acetaminophen-codeine 300-30 mg tablet 1 tab PO BID PRN (Reason: pain) Qty: 14 0RF Referrals: Chance Somers MD [Primary Care Provider] - Patient/Caregiver Discharge Instructions Print Language: Chinese Stand Alone Forms: Binta Award Info., Patient Portal Info Letter Quality Discharge Quality Measures VTE prophylaxis MD Attestestation MD Attestation I have examined the patient, reviewed labs and imaging findings, discussed the case with the resident(s), and reviewed entered orders. I agree with the plan of care as outlined in this note. Time Spent: [address] Rivera MD
--- NOTE | 2025-04-23 19:12 | PD.IMCONS ---
HPI Data of Consult Requesting Physician: Tato Stafford MD Primary Care Provider: Chance Somers MD Consult Narrative Reason for consult: Left-sided abdominal pain nausea vomiting History of present illness: 74 female with a known history of ulcerative colitis/Crohn disease has been in remission with the current medical regimen Surveillance colonoscopies have been all negative for any dysplasia He presented to the hospital with left-sided abdominal pain and nausea vomiting which has been progressively getting worse CT scan of the abdomen pelvis with contrast showed left hydronephrosis and a 6 mm proximal ureteric stone Patient does have a history of diabetes mellitus type 2 ulcerative colitis coronary artery status post PCI and hypothyroidism cc:: cc: Tato Stafford MD Review of Systems Review of Systems Systems Reviewed: All systems reviewed, normal except as documented Past Medical History Surgical History OTHER SURGICAL HX: As in the history of present illness Meds Home Medications and Allergies Home Medications ?Medication ?Instructions ?Recorded ?Confirmed ?Type cholecalciferol (vitamin D3) 50 2,000 unit PO QDAY #0 caps 05/30/15 04/22/25 History mcg (2,000 unit) capsule (Vitamin D3) levothyroxine 25 mcg tablet 25 mcg PO QAM ##90 05/30/15 04/22/25 History coenzyme Q10 100 mg capsule 100 mg PO QDAY 06/16/18 04/22/25 History (CoQ-10) clopidogrel 75 mg tablet (Plavix) 75 mg PO EVERYOTHERDAY 01/05/21 04/22/25 History mesalamine 1.2 gram tablet,delayed 4.8 g PO BID 01/05/21 04/22/25 History release (Lialda) metformin 500 mg tablet,extended 500 mg PO BID 01/05/21 04/22/25 History release 24 hr temazepam 15 mg capsule 15 mg PO QDAY PRN Anxiety 03/30/24 04/22/25 History vit C 250 mg-vit E 90 mg-zinc 40 1 tab PO BID 03/30/24 04/22/25 History mg-copper 1 [id number] capsule (PreserVision AREDS-2) Allergies Allergy/AdvReac Type Severity Reaction Status Date / Time lisinopril Allergy Intermediate Headache Verified 04/20/25 18:43 valsartan Allergy Intermediate Headache Verified 04/20/25 18:43 azathioprine Allergy Nausea Verified 04/20/25 18:43 sulfasalazine Allergy Anaphylaxis Verified 04/20/25 18:43 Exam Vital Signs Temp Pulse Resp BP Pulse Ox O2 Del Method 97.7 F 91 16 144/76 H 97 Room Air 04/23/25 16:00 04/23/25 16:00 04/23/25 16:00 04/23/25 16:00 04/23/25 16:00 04/23/25 04:00 Constitutional Comments: Alert oriented Routine Respiratory Exam Comments: Normal to auscultation Routine Abdominal Exam Comments: Soft left-sided CVA tenderness Results Labs 04/23/25 04:37 04/23/25 19:13 Labs: Short CBC 04/23/25 Range/Units 04:37 WBC 13.0 H (3.8-10.6) Thou/mm3 Hgb 11.2 L (13.5-16.0) g/dL Hct 31.5 L (41.0-53.0) % Plt Count 252 (140-440) Thou/mm3 BMP 04/23/25 04:37 Sodium 131 L Potassium 3.7 D Chloride 99 Carbon Dioxide 20.7 BUN 16 Creatinine 1.3 Glucose 158 H Calcium 8.0 L Liver Function 04/23/25 Range/Units 04:37 Total Bilirubin 1.3 H (0.3-1.2) mg/dL AST 14 (0-34) U/L ALT 10 (10-49) U/L Alkaline Phosphatase 67 (46-116) U/L Albumin 3.9 (3.4-4.8) gm/dL Assessment and Plan Additional Assessment & Plan Additional Plan: # Renal stone disease with left hydronephrosis and left proximal ureteric stones # Nausea vomiting secondary to 1 No evidence of acute exacerbation of the underlying inflammatory bowel disease I agree with the current management We will follow the patient Other medical problems include Diabetes mellitus type 2 Inflammatory bowel disease/UC/Crohn's Coronary artery disease status post PCI Hypothyroidism
[2025-04-23 19:21] LABS: Lactate (Lactic Acid) 1.2 mMol/L (0.4-2.0)
--- NOTE | 2025-04-23 19:22 | XR_ITS ---
Examination: CT abdomen and pelvis without contrast. Coronal 3-D reconstructions. Sagittal 2-D reconstructions. Date and time of exam:April 24, 2025, 0755 hours Comparison April 20, 2025 INDICATIONS: Abdominal distention today, history left hydronephrosis 6 mm proximal left ureteral calculus on CT examination April 20, 2025 CTDI: vol (mGy): 6.95 DLP: (mGycm): 380 Technique: Axial images of the abdomen have been obtained, 3 mm slice thickness Intravenous contrast material has not been administered. Low dose protocols were performed. One or more of the following dose reduction techniques were used; automated exposure control, adjustment of the mA and/or KV according to patient size, use of iterative reconstruction technique. Findings: Pneumonia left base with mild bilateral pleural effusions No focal liver or splenic lesions No gallstones Pancreatic calcifications Mild to moderate left hydronephrosis, 5 mm mid left ureteral calculus No bowel obstruction No pericecal inflammatory changes No diverticulitis Mild to moderate free fluid in the pelvis Urinary bladder contracted around a Ramesh catheter, urinary bladder wall thickening up to 10 mm Mild lumbar spondylosis IMPRESSION: There remains jbzm-to-jyietrat left hydronephrosis, 5 mm mid left ureteral calculus
[2025-04-23 19:42] LABS: Albumin, Serum 3.6 gm/dL (3.4-4.8); Anion Gap 9 (7-16); BUN/Creatinine Ratio 10 Ratio (12-20); Blood Urea Nitrogen 13 mg/dL (9-23); Calcium 7.8 mg/dL (8.3-10.6); Calcium (Corrected) 8.1 mg/dL (8.5-10.1); Carbon Dioxide 21.2 mMol/L (20.0-31.0); Chloride 101 mMol/L (98-107); Creatinine (Component) 1.3 mg/dL (0.6-1.3); Estimated Creatinine Clearance 38.9 mL/min (>60); Glucose 144 mg/dL (74-106); Osmolality,Calculated 265 (275-295); Phosphorous 1.7 mg/dL (2.4-5.1); Potassium 4.0 mMol/L (3.4-5.1); Sodium 131 mMol/L (136-145); eGFR 57 See Note
--- NOTE | 2025-04-23 20:23 | PC.CM ---
1743 received referral to transfer patient for IR for moderate hydronephrosis. I did not have time to start transfer.
[2025-04-23] MEDS: RINGERS LACTATED 1000 ML 1,000 ML 70 ML IV (21:07)
[2025-04-23] MEDS: Home Medication- Please speak with patient caregiver to have Rx brought to PHA 4.8 EA PO (21:08)
[2025-04-24] VITALS (9 sets, daily range): BP systolic 126–151; BP diastolic 55–82; PULSE 70–105; RESP 18–21; TEMP 36.1–36.6; O2SAT 93–99
[2025-04-24] MEDS: TEMAZEPAM 15 MG CAPSULE PO (02:33)
[2025-04-24] MEDS: BENZONATATE 100 MG CAPSULE PO (03:16)
[2025-04-24] MEDS: LACTULOSE SYRUP 20 GM/30 ML UDC 10 GM PO ×3 (06:06→21:21)
[2025-04-24] MEDS: LEVOTHYROXINE SODIUM 25 MCG TABLET PO (06:06)
[2025-04-24 06:49] LABS: Basophils # (Auto) 0.0 Thou/mm3 (0.0-0.2); Basophils % (Auto) 0 % (0-2.5); Eosinophils # (Auto) 0.0 Thou/mm3 (0.0-0.5); Eosinophils % (Auto) 0 % (0-10); Hematocrit 31.2 % (41.0-53.0); Hemoglobin 11.1 g/dL (13.5-16.0); Immature Granulocytes Auto 0.04 Thou/mm3 (0.00-0.00); Lymphocytes # (Auto) 0.7 Thou/mm3 (1.0-4.8); Lymphocytes % (Auto) 6 % (10-50); Mean Corpuscular HGB Conc 35.6 g/dl (31.0-37.0); Mean Corpuscular Hemoglobin 31.3 pg (25.0-35.0); Mean Corpuscular Volume 88 fL (80-100); Monocytes # (Auto) 1.1 Thou/mm3 (0.0-0.8); Monocytes % (Auto) 9 % (0-12); Neutrophils # (Auto) 10.2 Thou/mm3 (1.8-7.7); Neutrophils % (Auto) 85 % (37-80); Nucleated Red Blood Cell # 0.00 Thou/mm3 (0.00-0.00); Nucleated Red Blood Cell % 0 /100 WBC (0); Platelet Count 263 Thou/mm3 (140-440); RDW Standard Deviation 40.6 fL (35.1-43.9); Red Blood Count 3.55 Miln/mm3 (4.50-5.90); White Blood Count 12.0 Thou/mm3 (3.8-10.6)
--- NOTE | 2025-04-24 07:30 | PC.CC ---
Addendum entered by Baron Ribera RN 04/24/25 18:02: 1750 called [facility], spoke to Camilla and intiated the transfer. She stated the transfer is declined because IR is not an php consultant service. Addendum entered by Baron Ribera RN 04/24/25 17:45: 1745 clinicals sent to [facility]. Addendum entered by Baron Ribera RN 04/24/25 17:41: Due to working on multiple transfers, unable to work on it right away. Original Note: [address] of abd/pelvic came back and I spoke to Dr. Stafford. Pt needs transfer for IR and urology for hydronephrosis secondary to 5mm mid left ureteral calculus. 0730 pt renal US shows no hydronephrosis is demonstrated in either kidney, consider repeat CT scan abdomen and pelvis without contrast to assess whether the prior left ureteral calculus has passed.
[2025-04-24 07:51] LABS: Alanine Aminotransferase 9 U/L (10-49); Albumin, Serum 3.4 gm/dL (3.4-4.8); Albumin/Globulin Ratio 3.1 (1.2-2.2); Alkaline Phosphatase 66 U/L (46-116); Anion Gap 11 (7-16); Aspartate Amino Transferase 13 U/L (0-34); BUN/Creatinine Ratio 13 Ratio (12-20); Bilirubin,Total 1.1 mg/dL (0.3-1.2); Blood Urea Nitrogen 15 mg/dL (9-23); Calcium 7.9 mg/dL (8.3-10.6); Calcium (Corrected) 8.4 mg/dL (8.5-10.1); Carbon Dioxide 19.8 mMol/L (20.0-31.0); Chloride 98 mMol/L (98-107); Creatinine (Component) 1.2 mg/dL (0.6-1.3); Estimated Creatinine Clearance 42.1 mL/min (>60); Globulin 1.1 gm/dL (2.3-3.5); Glucose 128 mg/dL (74-106); Osmolality,Calculated 261 (275-295); Potassium 4.2 mMol/L (3.4-5.1); Sodium 129 mMol/L (136-145); Total Protein 4.5 gm/dL (5.7-8.2); eGFR > 60 See Note
[2025-04-24 09:04] LABS: Magnesium 2.3 mg/dL (1.6-2.6); Phosphorous 2.0 mg/dL (2.4-5.1)
[2025-04-24] MEDS: CALCIUM CARBONATE 600 MG TABLET PO (09:13)
[2025-04-24] MEDS: cefTRIAXone/D5w 1gm IV premix 1 GM/50 ML BAG IV (09:14)
[2025-04-24] MEDS: TAMSULOSIN HCL 0.4 MG CAPSULE PO (09:14)
--- NOTE | 2025-04-24 11:31 | PC.NURSE ---
pt wants to discuss the norvasc with the dr before continuing it
[2025-04-24] MEDS: SODIUM CHLORIDE 0.9% 1000 ML 1,000 ML 80 ML IV (13:28)
[2025-04-24] MEDS: INSULIN LISPRO (AdmeLOG) 1 UNIT/0.01 ML UNIT SC ×2 (13:30→18:07)
[2025-04-24] MEDS: BUDESONIDE RT 0.25 MG/2 ML NEBU INH (14:49)
[2025-04-24] MEDS: ALBUTEROL RT 2.5 MG/0.5 ML NEBU 5 MG INH (14:49)
--- NOTE | 2025-04-24 16:27 | PD.IMPROG ---
Documentation for date of: 04/24/25 Subjective Subjective Interval history: WBC count trending downwards to 12.0 Hemoglobin hematocrit 11.1 and 31.2 Exam Vital Signs Temp Pulse Resp BP Pulse Ox O2 Del Method 97.8 F 92 20 151/68 H 99 Room Air 04/24/25 12:00 04/24/25 14:51 04/24/25 14:51 04/24/25 13:29 04/24/25 14:51 04/24/25 12:00 Objective Labs 04/24/25 05:24 04/24/25 05:24 Labs: Laboratory Results - last 24 hr 04/23/25 04/24/25 19:13 05:24 WBC 12.0 H RBC 3.55 L Hgb 11.1 L Hct 31.2 L MCV 88 MCH 31.3 MCHC 35.6 RDW Std Deviation 40.6 Plt Count 263 Neut % (Auto) 85 H Lymph % (Auto) 6 L Summers % (Auto) 9 Eos % (Auto) 0 Baso % (Auto) 0 Neut # (Auto) 10.2 H Lymph # (Auto) 0.7 L Summers # (Auto) 1.1 H Eos # (Auto) 0.0 Baso # (Auto) 0.0 Immature Gran # (Auto) 0.04 H Absolute Nucleated RBC 0.00 Immature Gran % 0 Nucleated RBC % 0 Sodium 131 L 129 L Potassium 4.0 4.2 Chloride 101 98 Carbon Dioxide 21.2 19.8 L Anion Gap 9 11 BUN 13 15 Creatinine 1.3 1.2 Estim Creat Clear Calc 38.9 L 42.1 L eGFR 57 L > 60 BUN/Creatinine Ratio 10 L 13 Glucose 144 H 128 H Calculated Osmolality 265 L 261 L Lactic Acid 1.2 Calcium 7.8 L 7.9 L Corrected Calcium 8.1 L 8.4 L Phosphorus 1.7 L 2.0 L Magnesium 2.3 Total Bilirubin 1.1 AST 13 ALT 9 L Alkaline Phosphatase 66 Total Protein 4.5 L Albumin 3.6 3.4 Globulin 1.1 L Albumin/Globulin Ratio 3.1 H Impressions Impression: Inflammatory bowel disease/UC/Crohn's stable Left hydronephrosis Left ureteric stone Assessment & Plan A&P Narrative # Renal stone disease with left hydronephrosis and left proximal ureteric stones # Nausea vomiting secondary to 1 No evidence of acute exacerbation of the underlying inflammatory bowel disease I agree with the current management We will follow the patient Other medical problems include Diabetes mellitus type 2 Inflammatory bowel disease/UC/Crohn's Coronary artery disease status post PCI Hypothyroidism Time Spent With Patient Time: Total time spent is greater than 50% in coordination of care (as documented) at patient's floor/unit and/or counseling patient:
--- NOTE | 2025-04-24 16:43 | ESPR_ITS ---
Documentation for date of: 04/24/25 Subjective Subjective Interval history: Patient examined at bedside, no events overnight. Pain in abdomen is improving but still minimally present. Denies proper BM. Attempting to transfer for nephrostomy tube placement as in-house IR unable to place until Saturday. There is concern for worsening hydronephrosis as still evident on repeat imaging. Ureter stone seems to have advanced to distal ureter. Leukocytosis improving, ROGELIO improving with creatinine 1.2. Empirically treat with ceftriaxone 1 g daily, continue lactulose, and start patient on enema. Possible that abdominal distention is due to constipation. Blood sugars well-controlled, vitals are stable. Patient has had 2.7 L urine output as of this morning in the past 24 hours. Still noticeable dark urine and Gamez bag. Continue to hold Plavix. He has signifcant coughing. Started doxycyline for PNA and benzonotate pearls. Exam Vital Signs Temp Pulse Resp BP Pulse Ox O2 Del Method 97.8 F 92 20 151/68 H 99 Room Air 04/24/25 12:00 04/24/25 14:51 04/24/25 14:51 04/24/25 13:29 04/24/25 14:51 04/24/25 12:00 Narrative Exam General: Elderly male, minor distress, cooperative HEENT: NCAT, No JVD noted. Mucosa dry. Pupils are equal and reactive to light bilaterally Cardiovascular: Normal S1 and S2. Regular rate and rhythm. Respiratory: Lungs are clear to auscultation bilaterally. No wheezing or crackles heard. coughing Abdomen: Soft, nontender, distended, hypoactive bowel sounds : gamez in place, dark urine Skin: Warm to touch, dry, no rashes noted Musculoskeletal: No gross injuries. Able to move all 4 extremities. No pitting edema Neuro: Alert and oriented x3. No focal neuro deficits. Psych: Normal affect and mood Objective Labs 04/25/25 05:38 04/25/25 05:38 Labs: Laboratory Results - last 24 hr 04/23/25 04/24/25 19:13 05:24 WBC 12.0 H RBC 3.55 L Hgb 11.1 L Hct 31.2 L MCV 88 MCH 31.3 MCHC 35.6 RDW Std Deviation 40.6 Plt Count 263 Neut % (Auto) 85 H Lymph % (Auto) 6 L Upson % (Auto) 9 Eos % (Auto) 0 Baso % (Auto) 0 Neut # (Auto) 10.2 H Lymph # (Auto) 0.7 L Upson # (Auto) 1.1 H Eos # (Auto) 0.0 Baso # (Auto) 0.0 Immature Gran # (Auto) 0.04 H Absolute Nucleated RBC 0.00 Immature Gran % 0 Nucleated RBC % 0 Sodium 131 L 129 L Potassium 4.0 4.2 Chloride 101 98 Carbon Dioxide 21.2 19.8 L Anion Gap 9 11 BUN 13 15 Creatinine 1.3 1.2 Estim Creat Clear Calc 38.9 L 42.1 L eGFR 57 L > 60 BUN/Creatinine Ratio 10 L 13 Glucose 144 H 128 H Calculated Osmolality 265 L 261 L Lactic Acid 1.2 Calcium 7.8 L 7.9 L Corrected Calcium 8.1 L 8.4 L Phosphorus 1.7 L 2.0 L Magnesium 2.3 Total Bilirubin 1.1 AST 13 ALT 9 L Alkaline Phosphatase 66 Total Protein 4.5 L Albumin 3.6 3.4 Globulin 1.1 L Albumin/Globulin Ratio 3.1 H Quality Measures Quality Measures VTE prophylaxis Advance care planning discussed with:: patient Assessment & Plan Assessment Current Active Medications: Generic Name Dose Route Start Last Admin Trade Name Freq PRN Reason Stop Dose Admin Acetaminophen 650 mg 04/22/25 13:04 04/23/25 04:03 Acetaminophen 325 Mg Tablet PO 05/22/25 13:03 650 mg Q6H PRN Administration Fever >100.3 or pain 1-4 Amlodipine Besylate 2.5 mg 04/23/25 09:00 04/24/25 13:29 Amlodipine Besylate 2.5 Mg Tablet PO 05/23/25 08:59 2.5 mg QDAY PAULA Administration Benzonatate 200 mg 04/24/25 14:26 Benzonatate 100 Mg Capsule PO 05/24/25 14:25 Q8HR PRN COUGH Protocol Calcium Carbonate 600 mg 04/23/25 10:45 04/24/25 09:13 Calcium Carbonate 600 Mg Tablet PO 05/23/25 10:44 600 mg QDAY PAULA Administration Mesalamine [Lialda] 0 ea 04/23/25 09:00 04/23/25 10:02 1.2 Gram Tablet, PO 05/23/25 08:59 Not Given Delayed Release BID PAULA Dextrose 25 ml 04/22/25 13:17 Dextrose 50%-Water Inj 50 Ml Syringe IV 05/22/25 13:16 Q15MIN PRN BG 50-70 responsive npo pt Dextrose 50 ml 04/22/25 13:17 Dextrose 50%-Water Inj 50 Ml Syringe IV 05/22/25 13:16 Q15MIN PRN BG <50 OR BG <70 & pt unresponsive Doxycycline Hyclate 100 mg 04/24/25 21:00 Doxycycline 100 Mg Tablet PO 05/01/25 20:59 BID PAULA Glucagon 1 mg 04/22/25 13:17 Glucagon Inj 1 Mg Vial IM Q15MIN PRN BG <70, and no IV access Ceftriaxone Sodium/Dextrose 1 gm in 50 mls @ 100 mls/hr 04/23/25 17:15 04/24/25 09:14 Rocephin/D5w 1gm Iv Premix IV 04/30/25 17:14 100 mls/hr QDAY PAULA Administration Sodium Chloride 1,000 mls @ 70 mls/hr 04/24/25 16:02 Ns IV 04/25/25 01:09 .[id number] ONE Insulin Human Lispro 0 unit 04/22/25 17:00 04/24/25 13:30 Insulin Lispro (Admelog) 1 Unit/0.01 Ml Unit SC 05/22/25 16:59 1 unit AC PAULA Administration Protocol Lactulose 10 gm 04/23/25 08:00 04/24/25 06:06 Lactulose Syrup 20 Gm/30 Ml Udc PO 05/23/25 07:59 10 gm TID PAULA Administration Protocol Levothyroxine Sodium 25 mcg 04/23/25 08:00 04/24/25 06:06 Levothyroxine Sodium 25 Mcg Tablet PO 05/23/25 07:59 25 mcg ACBR PAULA Administration Morphine Sulfate 2 mg 04/22/25 13:15 Morphine Sulf Inj 10 Mg/Ml Vial IVP Q4HR PRN pain 7-10 Home Medication- 4.8 gm 04/23/25 09:00 04/23/25 21:08 Please Speak With PO 05/23/25 08:59 4.8 gm Patient Caregiver To BID PAULA Administration Have Rx Brought To [facility] Ondansetron HCl 4 mg 04/22/25 13:04 Ondansetron Inj 2 Mg/Ml Inj 2 Ml IVP 05/22/25 13:03 Q6H PRN NAUSEA OR VOMITING Protocol Tamsulosin HCl 0.4 mg 04/22/25 13:15 04/24/25 09:14 Tamsulosin Hcl 0.4 Mg Capsule PO 05/22/25 13:14 0.4 mg DAILY PAULA Administration Temazepam 15 mg 04/23/25 13:57 04/24/25 02:33 Temazepam 15 Mg Capsule PO 04/28/25 13:56 15 mg QDAY PRN Administration Anxiety Plan Matt Varma is 74 yr male with PMH of loh-wtrntdt-vadyjdenz type 2 diabetes, ulcerative colitis, CAD s/p PCI (3 stents) on Plavix, hypothyroidism presenting to ED on 04/22/2025 with chief complaint of left-sided abdominal pain. He has noticed decreased urine output with a distended abdomen. Urology Dr. Pearson was consulted for evaluation. Patient to be admitted for ROGELIO secondary to left-sided hydronephrosis in setting of ureter stone. #ROGELIO improving #Left hydronephrosis #Uterolithiasis He has been complaining of left abdominal pain, decreased urine output, vomiting since Saturday. Denies any hematuria. CT abdomen pelvis confirmed 6 mm stone in left ureter and hydronephrosis left kidney. Denies any dysuria at this time. reatinine 1.5 (Baseline appears to be around 1.0), BUN 20, GFR 48. ROGELIO likely intrarenal in setting of stone, possible prerenal component as well as he has been having multiple episodes of vomiting and decreased p.o. intake since past few days. ?Consulted urology Dr. Pearson, appreciate recommendations--not able to evaluate until Saturday. He he recommended for IR to place nephrostomy tubes. However IR unavailable as well. Attempting to transfer patient for nephrostomy tubes. ? Maintenance fluids to be continued ? Tamsulosin 0.4 mg daily ? Monitor MER's ? Continue Gamez catheter ? Strain urine for stone passage ? IV morphine 2 mg q4hr for pain #Constipation Patient has a history of ulcerative colitis and having on and off diarrhea/constipation Complaining of abdominal distention, however patient passes gas, no proper BM yet. Abdominal x-ray showing large amounts of stool throughout the colon, negative for obstruction. ?Continue lactulose 10 mg TID ?Mineral oil enema #CAD s/p 3 stents Patient follows cardiology Dr. Colon and currently taking Plavix for CAD history status post stents. Last appointment outpatient about 1 month ago and workup with stress test was negative. He denies being on any antihypertensives. -Hold Plavix 75 mg daily in setting of hematuria #HLD Patient takes rosuvastatin 10 mg p.o. daily ? Resume atorvastatin 40 mg daily #Hypothyroidism Most recent TSH 04/12/25 normal (1.67) Resume levothyroxine 25 mcg daily #Ulcerative colitis Is not a appear to be an acute flare, well controlled, denies any blood in the stool, denies any diarrhea but does endorse constipation since Saturday. Constipation more likely due to bladder distention. -Mesalamine 4.8 g BID #Tlm-xctmqfe-pryohxgmw type 2 diabetes, well-controlled On admission initial glucose 181. Last A1c 5.5 on 04/12/25. Patient takes metformin 500 twice daily and dapagliflozin 5 mg daily at home. -Held home medications -Bedside blood glucose checks ACHS -Insulin lispro sliding scale -Carb consistent low diet Disposition: MedSurg DVT prophylaxis: SCDs in setting of hematuria GI prophylaxis: PPI Diet: Low carb Lines: PIV CODE STATUS:Full code Patient care was discussed with attending physician Dr. Rivera Gonzalez, PGY1 Attending Provider Attestation/Addendum I have examined the patient, reviewed labs and imaging findings, discussed the case with the resident(s), and reviewed entered orders. I agree with the plan of care as outlined in this note, with these additional summaries/recommendations: Patient is a 74-year-old male with a medical history of AWAIS, diabetes mellitus type 2, GERD, hypothyroidism, ulcerative colitis, hyperlipidemia, BPH, and CAD presents to [facility] emergency department on 04/22/2025 with flank pain and nausea/vomiting. Patient seen at bedside. No acute overnight events. Patient continues to endorse severe constipation and abdominal distention. We will proceed with enema today and continue oral laxatives. Gastroenterology following, recommendations appreciated. Imaging on admission revealed large amounts of stool throughout the colon. Patient also diagnosed with ureterolithiasis. CT abdomen and pelvis revealed mild to moderate left hydronephrosis secondary to 6 mm proximal left ureteral calculus. Urology consulted by emergency room provider and has agreed to consult on the case. Continue IV fluids, gamez catheter, pain management, and Flomax. Mild to moderate hydronephrosis seen on CT on admission. There unfortunately was miscommunication between urology and emergency room provider in regards to management. This was explained to patient and patient's who showed understanding. IR unavailable to place nephrostomy tube at this time although renal function stable and urine output appropriate. Originally suspected abdominal distention secondary to mild to moderate hydronephrosis although much more likely secondary to severe constipation at this point. Transfer was initiated for nephrostomy tube and we will follow-up with transfer center. Urology has agreed to come evaluate patient on 04/26/2025. Gamez catheter appears to be draining clear/yellow urine today. On admission there was noted hematuria which is most likely secondary to Gamez catheter placement in the ED +/- urolithiasis. Continue to hold chemical anticoagulation. Continue to monitor urinary output closely. Patient noted to have ROGELIO with creatinine 1.5 and BUN 20 which has now resolved with creatinine 1.2 and BUN 15. More likely secondary to prerenal azotemia from poor oral intake rather than kidney stone. Continue IV fluids. Continue insulin sliding scale with Accu-Cheks for diabetes mellitus type 2. Target blood sugar of 140- 180 while hospitalized. A1c currently well-controlled. We will hold home Plavix for now given hematuria and will resume when able. Continue home temazepam as needed for sleep/anxiety. Continue abx for bacterial pneumonia. Continue home mesalamine when able for UC. Patient updated on the plan and in agreement. All questions answered to satisfaction. Please see residents note for additional details of management. Dr. Rivera MD
--- NOTE | 2025-04-24 17:35 | PC.NURSE ---
pts own med-mesalamine was not sent to pharmacy, I got it from pt's now, Rx is for 1.2 grams tab, 2 tabs bid, MAR says 4.8 bid, bottle sent to pharmacy now
[2025-04-24] MEDS: BENZONATATE 100 MG CAPSULE 200 MG PO (18:07)
[2025-04-24] MEDS: DOXYCYCLINE 100 MG TABLET PO (21:20)
[2025-04-24] MEDS: Home Medication- Please speak with patient caregiver to have Rx brought to PHA 4.8 EA PO (21:21)
[2025-04-25] VITALS (9 sets, daily range): BP systolic 139–159; BP diastolic 68–85; PULSE 77–91; RESP 17–98; TEMP 36.2–36.6; O2SAT 93–97
[2025-04-25] MEDS: TEMAZEPAM 15 MG CAPSULE PO (02:31)
[2025-04-25] MEDS: BENZONATATE 100 MG CAPSULE 200 MG PO (02:31)
[2025-04-25 06:08] LABS: Basophils # (Auto) 0.0 Thou/mm3 (0.0-0.2); Basophils % (Auto) 0 % (0-2.5); Eosinophils # (Auto) 0.0 Thou/mm3 (0.0-0.5); Eosinophils % (Auto) 0 % (0-10); Hematocrit 31.2 % (41.0-53.0); Hemoglobin 11.3 g/dL (13.5-16.0); Immature Granulocytes Auto 0.03 Thou/mm3 (0.00-0.00); Lymphocytes # (Auto) 0.7 Thou/mm3 (1.0-4.8); Lymphocytes % (Auto) 7 % (10-50); Mean Corpuscular HGB Conc 36.2 g/dl (31.0-37.0); Mean Corpuscular Hemoglobin 31.1 pg (25.0-35.0); Mean Corpuscular Volume 86 fL (80-100); Monocytes # (Auto) 1.1 Thou/mm3 (0.0-0.8); Monocytes % (Auto) 12 % (0-12); Neutrophils # (Auto) 7.9 Thou/mm3 (1.8-7.7); Neutrophils % (Auto) 81 % (37-80); Nucleated Red Blood Cell # 0.00 Thou/mm3 (0.00-0.00); Nucleated Red Blood Cell % 0 /100 WBC (0); Platelet Count 277 Thou/mm3 (140-440); RDW Standard Deviation 40.2 fL (35.1-43.9); Red Blood Count 3.63 Miln/mm3 (4.50-5.90); White Blood Count 9.8 Thou/mm3 (3.8-10.6)
[2025-04-25] MEDS: LACTULOSE SYRUP 20 GM/30 ML UDC 10 GM PO ×2 (06:10→13:15)
[2025-04-25] MEDS: LEVOTHYROXINE SODIUM 25 MCG TABLET PO (06:10)
[2025-04-25 07:01] LABS: Alanine Aminotransferase 8 U/L (10-49); Albumin, Serum 3.4 gm/dL (3.4-4.8); Albumin/Globulin Ratio 1.7 (1.2-2.2); Alkaline Phosphatase 68 U/L (46-116); Anion Gap 4 (7-16); Aspartate Amino Transferase 11 U/L (0-34); BUN/Creatinine Ratio 8 Ratio (12-20); Bilirubin,Total 0.9 mg/dL (0.3-1.2); Blood Urea Nitrogen 11 mg/dL (9-23); Calcium 7.9 mg/dL (8.3-10.6); Calcium (Corrected) 8.4 mg/dL (8.5-10.1); Carbon Dioxide 22.2 mMol/L (20.0-31.0); Chloride 107 mMol/L (98-107); Creatinine (Component) 1.3 mg/dL (0.6-1.3); Estimated Creatinine Clearance 38.9 mL/min (>60); Globulin 2.0 gm/dL (2.3-3.5); Glucose 145 mg/dL (74-106); Osmolality,Calculated 268 (275-295); Potassium 3.9 mMol/L (3.4-5.1); Sodium 133 mMol/L (136-145); Total Protein 5.4 gm/dL (5.7-8.2); eGFR 57 See Note
[2025-04-25 08:19] LABS: Magnesium 2.2 mg/dL (1.6-2.6); Phosphorous 2.5 mg/dL (2.4-5.1)
[2025-04-25] MEDS: DOXYCYCLINE 100 MG TABLET PO ×2 (08:27→20:56)
[2025-04-25] MEDS: cefTRIAXone/D5w 1gm IV premix 1 GM/50 ML BAG IV (08:27)
[2025-04-25] MEDS: TAMSULOSIN HCL 0.4 MG CAPSULE PO (08:27)
[2025-04-25] MEDS: CALCIUM CARBONATE 600 MG TABLET PO (08:27)
--- NOTE | 2025-04-25 08:43 | PC.CC ---
Addendum entered by Jimy Pop RN 04/25/25 09:13: 0911: received a call from Dr. Stafford stating to cancel the transfer request. 0910: received call back from Tran patel/ [facility], she stated a peer to peer was completed and she informed me that Dr. Stafford canceled the transfer request. Original Note: 0832: called TC to f/u on transfer request. Per Tran with [facility], no transfer request initiated. Initiated transfer request at this time. Tran stated she will review chart and call back.
[2025-04-25] MEDS: INSULIN LISPRO (AdmeLOG) 1 UNIT/0.01 ML UNIT SC (11:35)
[2025-04-25] MEDS: Mesalamine [Lialda] 1.2 gram Tablet,Delayed Release PO ×2 (11:35→20:56)
--- NOTE | 2025-04-25 12:26 | PC.SS ---
Per rounding meeting, pt has kidney stones and is needing a nephrostomy tube placement but cannot be done until Saturday. Pt remains on IV antibiotics. At this time there is no d/c date.
[2025-04-25] MEDS: NA SU/NAHCO3/KC/PEG (Golytely) 4,000 ML BTL 4000 ML PO (13:16)
--- NOTE | 2025-04-25 13:51 | XR_ITS ---
Examination: Abdomen AP single view Technique: AP portable supine abdomen, single view Exam date and time: April 25, 2025, 1552 hrs. Indications: Abdominal distention today Findings: Again noted air distended colon, significantly air distended either cecum or sigmoid colon No free air The osseous structures are demineralized The ureteral calculus noted on CT stone study yesterday is not clearly depicted on this exam Impression: Significant colonic ileus
--- NOTE | 2025-04-25 16:32 | PD.RESPRO ---
Documentation for date of: 04/25/25 Subjective Subjective Interval history: Patient examined at bedside, no reported events overnight. Patient had large bowel movement after getting enema yesterday. Still is complaining of distention. On physical exam, distention slightly improved from yesterday. Dr. Ayala will start patient on GoLytely to clear out entire bowel contents. Vitals are stable with urine output of 1.7 L past 24 hours. Creatinine remains between 1.2?1.3. Transfer for nephrostomy tube placement canceled due to improving kidney function. He is making good urine and renal panel showing improvement. He has received adequate amount of fluids since admission. Will hold for now and continue to monitor. Pending evaluation by urology tomorrow for possible nephrostomy tubes. Exam Vital Signs Temp Pulse Resp BP Pulse Ox O2 Del Method 97.4 F 79 18 150/68 H 93 L Room Air 04/25/25 16:00 04/25/25 16:00 04/25/25 16:00 04/25/25 16:00 04/25/25 16:04/25/25 16:00 Narrative Exam General: Elderly male, minor distress, cooperative HEENT: NCAT, No JVD noted. Mucosa dry. Pupils are equal and reactive to light bilaterally Cardiovascular: Normal S1 and S2. Regular rate and rhythm. Respiratory: Lungs are clear to auscultation bilaterally. No wheezing or crackles heard. coughing Abdomen: Soft, nontender, distended, hypoactive bowel sounds : gamez in place, no hematuria Skin: Warm to touch, dry, no rashes noted Musculoskeletal: No gross injuries. Able to move all 4 extremities. No pitting edema Neuro: Alert and oriented x3. No focal neuro deficits. Psych: Normal affect and mood Objective Labs 04/26/25 05:20 04/26/25 05:20 Labs: Laboratory Results - last 24 hr 04/25/25 05:38 WBC 9.8 RBC 3.63 L Hgb 11.3 L Hct 31.2 L MCV 86 MCH 31.1 MCHC 36.2 RDW Std Deviation 40.2 Plt Count 277 Neut % (Auto) 81 H Lymph % (Auto) 7 L [place] % (Auto) 12 Eos % (Auto) 0 Baso % (Auto) 0 Neut # (Auto) 7.9 H Lymph # (Auto) 0.7 L [place] # (Auto) 1.1 H Eos # (Auto) 0.0 Baso # (Auto) 0.0 Immature Gran # (Auto) 0.03 H Absolute Nucleated RBC 0.00 Immature Gran % 0 Nucleated RBC % 0 Sodium 133 L Potassium 3.9 Chloride 107 Carbon Dioxide 22.2 Anion Gap 4 L BUN 11 Creatinine 1.3 Estim Creat Clear Calc 38.9 L eGFR 57 L BUN/Creatinine Ratio 8 L Glucose 145 H Calculated Osmolality 268 L Calcium 7.9 L Corrected Calcium 8.4 L Phosphorus 2.5 Magnesium 2.2 Total Bilirubin 0.9 AST 11 ALT 8 L Alkaline Phosphatase 68 Total Protein 5.4 L Albumin 3.4 Globulin 2.0 L Albumin/Globulin Ratio 1.7 Quality Measures Quality Measures VTE prophylaxis Advance care planning discussed with:: patient Assessment & Plan Assessment Current Active Medications: Generic Name Dose Route Start Last Admin Trade Name Freq PRN Reason Stop Dose Admin Acetaminophen 650 mg 04/22/25 13:04 04/23/25 04:03 Acetaminophen 325 Mg Tablet PO 05/22/25 13:03 650 mg Q6H PRN Administration Fever >100.3 or pain 1-4 Amlodipine Besylate 2.5 mg 04/23/25 09:00 04/25/25 08:27 Amlodipine Besylate 2.5 Mg Tablet PO 05/23/25 08:59 2.5 mg QDAY PAULA Administration Benzonatate 200 mg 04/24/25 14:26 04/25/25 02:31 Benzonatate 100 Mg Capsule PO 05/24/25 14:25 200 mg Q8HR PRN Administration COUGH Protocol Calcium Carbonate 600 mg 04/23/25 10:45 04/25/25 08:27 Calcium Carbonate 600 Mg Tablet PO 05/23/25 10:44 600 mg QDAY PAULA Administration Mesalamine [Lialda] 0 ea 04/25/25 09:00 04/25/25 11:35 1.2 Gram Tablet, PO 05/25/25 08:59 2 tablet Delayed Release BID PAULA Administration Dextrose 25 ml 04/22/25 13:17 Dextrose 50%-Water Inj 50 Ml Syringe IV 05/22/25 13:16 Q15MIN PRN BG 50-70 responsive npo pt Dextrose 50 ml 04/22/25 13:17 Dextrose 50%-Water Inj 50 Ml Syringe IV 05/22/25 13:16 Q15MIN PRN BG <50 OR BG <70 & pt unresponsive Doxycycline Hyclate 100 mg 04/24/25 21:00 04/25/25 08:27 Doxycycline 100 Mg Tablet PO 05/01/25 20:59 100 mg BID PAULA Administration Glucagon 1 mg 04/22/25 13:17 Glucagon Inj 1 Mg Vial IM Q15MIN PRN BG <70, and no IV access Insulin Human Lispro 0 unit 04/22/25 17:00 04/25/25 11:35 Insulin Lispro (Admelog) 1 Unit/0.01 Ml Unit SC 05/22/25 16:59 1 unit AC PAULA Administration Protocol Levothyroxine Sodium 25 mcg 04/23/25 08:00 04/25/25 06:10 Levothyroxine Sodium 25 Mcg Tablet PO 05/23/25 07:59 25 mcg ACBR PAULA Administration Morphine Sulfate 2 mg 04/22/25 13:15 Morphine Sulf Inj 10 Mg/Ml Vial IVP Q4HR PRN pain 7-10 Ondansetron HCl 4 mg 04/22/25 13:04 Ondansetron Inj 2 Mg/Ml Inj 2 Ml IVP 05/22/25 13:03 Q6H PRN NAUSEA OR VOMITING Protocol Tamsulosin HCl 0.4 mg 04/22/25 13:15 04/25/25 08:27 Tamsulosin Hcl 0.4 Mg Capsule PO 05/22/25 13:14 0.4 mg DAILY PAULA Administration Temazepam 15 mg 04/23/25 13:57 04/25/25 02:31 Temazepam 15 Mg Capsule PO 04/28/25 13:56 15 mg QDAY PRN Administration Anxiety Plan Matt Varma is 74 yr male with PMH of xpy-axikrwm-nkgfturuw type 2 diabetes, ulcerative colitis, CAD s/p PCI (3 stents) on Plavix, hypothyroidism presenting to ED on 04/22/2025 with chief complaint of left-sided abdominal pain. He has noticed decreased urine output with a distended abdomen. Urology Dr. Pearson was consulted for evaluation. Patient to be admitted for ROGELIO secondary to left-sided hydronephrosis in setting of ureter stone. #ROGELIO improving #Left hydronephrosis #Uterolithiasis He has been complaining of left abdominal pain, decreased urine output, vomiting since Saturday. Denies any hematuria. CT abdomen pelvis confirmed 6 mm stone in left ureter and hydronephrosis left kidney. Denies any dysuria at this time. reatinine 1.5 (Baseline appears to be around 1.0), BUN 20, GFR 48. ROGELIO likely intrarenal in setting of stone, possible prerenal component as well as he has been having multiple episodes of vomiting and decreased p.o. intake since past few days. ?Consulted urology Dr. Pearson, appreciate recommendations--not able to evaluate until Saturday. He he recommended for IR to place nephrostomy tubes. However IR unavailable as well. -canceled transfer--requesting urology to evaluate patient tomorrow ? DC Maintenance fluids ? Tamsulosin 0.4 mg daily ? Monitor MER's ? Continue Gamez catheter ? Strain urine for stone passage ? IV morphine 2 mg q4hr for pain #Constipation Patient has a history of ulcerative colitis and having on and off diarrhea/constipation Complaining of abdominal distention, however patient passes gas, no proper BM yet. Abdominal x-ray showing large amounts of stool throughout the colon, negative for obstruction. -had large BM overnight -consulted GI Dr. Ayala, appreciate recs--started Golytely to clear bowel ?Continue lactulose 10 mg TID #CAD s/p 3 stents Patient follows cardiology Dr. Colon and currently taking Plavix for CAD history status post stents. Last appointment outpatient about 1 month ago and workup with stress test was negative. He denies being on any antihypertensives. -Hold Plavix 75 mg daily in setting of hematuria #HLD Patient takes rosuvastatin 10 mg p.o. daily ? Resume atorvastatin 40 mg daily #Hypothyroidism Most recent TSH 04/12/25 normal (1.67) Resume levothyroxine 25 mcg daily #Ulcerative colitis Is not a appear to be an acute flare, well controlled, denies any blood in the stool, denies any diarrhea but does endorse constipation since Saturday. Constipation more likely due to bladder distention. -Mesalamine 4.8 g BID #Jju-nsqxwks-mypppizrl type 2 diabetes, well-controlled On admission initial glucose 181. Last A1c 5.5 on 04/12/25. Patient takes metformin 500 twice daily and dapagliflozin 5 mg daily at home. -Held home medications -Bedside blood glucose checks ACHS -Insulin lispro sliding scale -Carb consistent low diet Disposition: MedSurg DVT prophylaxis: SCDs in setting of hematuria GI prophylaxis: PPI Diet: Low carb Lines: PIV CODE STATUS:Full code Patient care was discussed with attending physician Dr. Rivera Gonzalez, PGY1 Attending Provider Attestation/Addendum I have examined the patient, reviewed labs and imaging findings, discussed the case with the resident(s), and reviewed entered orders. I agree with the plan of care as outlined in this note, with these additional summaries/recommendations: Patient is a 74-year-old male with a medical history of AWAIS, diabetes mellitus type 2, GERD, hypothyroidism, ulcerative colitis, hyperlipidemia, BPH, and CAD presents to [facility] emergency department on 04/22/2025 with flank pain and nausea/vomiting. Patient seen at bedside. No acute overnight events. Prior to my arrival to the room patient reports he had a very large bowel movement, although he still endorses significant abdominal distention and discomfort. Discussed with gastroenterology and patient will be started on GoLytely. Patient also diagnosed with ureterolithiasis. CT abdomen and pelvis revealed mild to moderate left hydronephrosis secondary to 6 mm proximal left ureteral calculus. Continue gamez catheter, pain management, and Flomax. Mild to moderate hydronephrosis seen on CT on admission. IR unavailable to place nephrostomy tube over the weekend although renal function stable and urine output appropriate. Originally suspected abdominal distention secondary to mild to moderate hydronephrosis although likely secondary to severe constipation at this point. Transfer was initiated for nephrostomy tube although we will cancel as patient's hydronephrosis has stayed stable, urine output appropriate, and in-house IR and urology available tomorrow. Urology has agreed to come evaluate patient on 04/26/2025. On admission there was noted hematuria which is most likely secondary to Gamez catheter placement in the ED +/- urolithiasis. Continue to hold chemical anticoagulation. Continue to monitor urinary output closely. On admission patient noted to have ROGELIO with creatinine 1.5 and BUN 20 which has now resolved with creatinine 1.3 and BUN 11. DC IV fluids. Continue insulin sliding scale with Accu-Cheks for diabetes mellitus type 2. Target blood sugar of 140-180 while hospitalized. A1c currently well-controlled. We will hold home Plavix for now given hematuria and will resume when able. Continue home temazepam as needed for sleep/anxiety. Continue abx for bacterial pneumonia. Continue home mesalamine when able for UC. Patient updated on the plan and in agreement. All questions answered to satisfaction. Please see residents note for additional details of management. Dr. Rivera MD
--- NOTE | 2025-04-25 16:56 | PD.IMPROG ---
Documentation for date of: 04/25/25 Subjective Subjective Interval history: Patient continues to have abdominal bloating and unable go to the bathroom Patient was given Fleet enema I started the patient on GoLytely as abdomen is distended Exam Vital Signs Temp Pulse Resp BP Pulse Ox O2 Del Method 97.4 F 79 18 150/68 H 93 L Room Air 04/25/25 16:00 04/25/25 16:00 04/25/25 16:00 04/25/25 16:00 04/25/25 16:00 04/25/25 16:00 Objective Labs 04/25/25 05:38 04/25/25 05:38 Labs: Laboratory Results - last 24 hr 04/25/25 05:38 WBC 9.8 RBC 3.63 L Hgb 11.3 L Hct 31.2 L MCV 86 MCH 31.1 MCHC 36.2 RDW Std Deviation 40.2 Plt Count 277 Neut % (Auto) 81 H Lymph % (Auto) 7 L [place] % (Auto) 12 Eos % (Auto) 0 Baso % (Auto) 0 Neut # (Auto) 7.9 H Lymph # (Auto) 0.7 L [place] # (Auto) 1.1 H Eos # (Auto) 0.0 Baso # (Auto) 0.0 Immature Gran # (Auto) 0.03 H Absolute Nucleated RBC 0.00 Immature Gran % 0 Nucleated RBC % 0 Sodium 133 L Potassium 3.9 Chloride 107 Carbon Dioxide 22.2 Anion Gap 4 L BUN 11 Creatinine 1.3 Estim Creat Clear Calc 38.9 L eGFR 57 L BUN/Creatinine Ratio 8 L Glucose 145 H Calculated Osmolality 268 L Calcium 7.9 L Corrected Calcium 8.4 L Phosphorus 2.5 Magnesium 2.2 Total Bilirubin 0.9 AST 11 ALT 8 L Alkaline Phosphatase 68 Total Protein 5.4 L Albumin 3.4 Globulin 2.0 L Albumin/Globulin Ratio 1.7 Impressions Impression: Stool impaction Abdominal bloating Left hydronephrosis Left proximal ureteric stone Plan GoLytely prep Assessment & Plan A&P Narrative # Renal stone disease with left hydronephrosis and left proximal ureteric stones # Nausea vomiting secondary to 1 No evidence of acute exacerbation of the underlying inflammatory bowel disease I agree with the current management We will follow the patient Other medical problems include Diabetes mellitus type 2 Inflammatory bowel disease/UC/Crohn's Coronary artery disease status post PCI Hypothyroidism Time Spent With Patient Time: Total time spent is greater than 50% in coordination of care (as documented) at patient's floor/unit and/or counseling patient:
[2025-04-26] VITALS (18 sets, daily range): BP systolic 104–148; BP diastolic 46–88; PULSE 65–98; RESP 14–94; TEMP 36.3–36.8; O2SAT 94–100; BMI 25.7
[2025-04-26] MEDS: BENZONATATE 100 MG CAPSULE 200 MG PO (00:14)
[2025-04-26] MEDS: ACETAMINOPHEN 325 MG TABLET 650 MG PO ×3 (02:09→23:38)
[2025-04-26] MEDS: TEMAZEPAM 15 MG CAPSULE PO ×2 (03:12→23:38)
[2025-04-26] MEDS: LEVOTHYROXINE SODIUM 25 MCG TABLET PO (05:26)
--- NOTE | 2025-04-26 05:37 | EKG_ITS ---
[facility] Test Date: 2025-04-26 Pat Name: SHIRA MICHEL [facility] Clinical Research Nurse: MRAY : 1950 Requested By: Kwabena Davila Order Number: [id number] Reading MD: Kwabena Davila Measurements Intervals [place] Rate: 146 P: [place]: QRS: -17 QRSD: 99 T: 76 QT: 284 QTc: 444 Interpretive Statements ATRIAL FIBRILLATION WITH RAPID VENTRICULAR RESPONSE NONSPECIFIC ST & T-WAVE ABNORMALITY ABNORMAL RHYTHM ECG Compared to ECG 09/30/2023 18:33:43 T-wave abnormality now present Sinus rhythm no longer present Myocardial infarct finding no longer present /store/S0/[id number].pdf
--- NOTE | 2025-04-26 05:37 | PC.NURSE ---
Called Dr. Madison and notified patient heart rate is jumping from 70s-130s. Patient is not on a monitoring specialist, MD will order EKG and go from there. Patient is not c/o chest pain or any discomfort.
[2025-04-26 06:08] LABS: Basophils # (Auto) 0.0 Thou/mm3 (0.0-0.2); Basophils % (Auto) 0 % (0-2.5); Eosinophils # (Auto) 0.1 Thou/mm3 (0.0-0.5); Eosinophils % (Auto) 1 % (0-10); Hematocrit 30.5 % (41.0-53.0); Hemoglobin 10.6 g/dL (13.5-16.0); Immature Granulocytes Auto 0.05 Thou/mm3 (0.00-0.00); Lymphocytes # (Auto) 0.8 Thou/mm3 (1.0-4.8); Lymphocytes % (Auto) 7 % (10-50); Mean Corpuscular HGB Conc 34.8 g/dl (31.0-37.0); Mean Corpuscular Hemoglobin 30.8 pg (25.0-35.0); Mean Corpuscular Volume 89 fL (80-100); Monocytes # (Auto) 1.4 Thou/mm3 (0.0-0.8); Monocytes % (Auto) 13 % (0-12); Neutrophils # (Auto) 8.6 Thou/mm3 (1.8-7.7); Neutrophils % (Auto) 78 % (37-80); Nucleated Red Blood Cell # 0.00 Thou/mm3 (0.00-0.00); Nucleated Red Blood Cell % 0 /100 WBC (0); Platelet Count 311 Thou/mm3 (140-440); RDW Standard Deviation 42.1 fL (35.1-43.9); Red Blood Count 3.44 Miln/mm3 (4.50-5.90); White Blood Count 11.0 Thou/mm3 (3.8-10.6)
--- NOTE | 2025-04-26 06:08 | PC.NURSE ---
Addendum entered by Teresa Hunter RN 04/26/25 06:39: [address] Rush in to see patient, patient HR 103, BP 109/66, placed on equipment monitor phototypesetting. No c/o chest pain or discomfort. 0635 Called IN Yoanna patient heart rhythm is SR HR 88. Original Note: Called Dr. Madison to inform of EKG results, A.fib with RVR HR in the 140's, no new orders given MD will review.
[2025-04-26 06:33] LABS: Alanine Aminotransferase 8 U/L (10-49); Albumin, Serum 3.2 gm/dL (3.4-4.8); Albumin/Globulin Ratio 2.3 (1.2-2.2); Alkaline Phosphatase 64 U/L (46-116); Anion Gap 13 (7-16); Aspartate Amino Transferase 11 U/L (0-34); BUN/Creatinine Ratio 11 Ratio (12-20); Bilirubin,Total 0.9 mg/dL (0.3-1.2); Blood Urea Nitrogen 15 mg/dL (9-23); Calcium 8.1 mg/dL (8.3-10.6); Calcium (Corrected) 8.7 mg/dL (8.5-10.1); Carbon Dioxide 18.0 mMol/L (20.0-31.0); Chloride 102 mMol/L (98-107); Creatinine (Component) 1.4 mg/dL (0.6-1.3); Estimated Creatinine Clearance 36.1 mL/min (>60); Globulin 1.4 gm/dL (2.3-3.5); Glucose 142 mg/dL (74-106); Magnesium 2.0 mg/dL (1.6-2.6); Osmolality,Calculated 269 (275-295); Phosphorous 2.8 mg/dL (2.4-5.1); Potassium 3.5 mMol/L (3.4-5.1); Sodium 133 mMol/L (136-145); Total Protein 4.6 gm/dL (5.7-8.2); eGFR 52 See Note
--- NOTE | 2025-04-26 07:21 | PC.NURSE ---
Manuel Thomas regarding patient converted to sinus rhythm, did not start amiodarone, per doctor not to give medication and to keep a close eye on rhythm and blood pressure.
--- NOTE | 2025-04-26 08:24 | PC.NURSE ---
spoke to hospitalist regarding order for nephrostomy tube, MD will consult urology MD and will decide if patient still nephrostomy tube and will cancel or put new order for nephrostomy tube insertion
[2025-04-26] MEDS: CALCIUM CARBONATE 600 MG TABLET PO (08:30)
--- NOTE | 2025-04-26 08:30 | XR_ITS ---
Examination: Left percutaneous nephrostomy drainage catheter placement Ultrasound-guided renal access left renal collecting system Fluoroscopy Left nephrostogram 2. Spot fluoroscopic abdomen films Date and time: April 26, 2025 0901 hours INDICATIONS: Left flank pain hydronephrosis secondary to 5 mm mid left ureteral calculus on CT stone study April 24, 2025 TECHNIQUE AND FINDINGS: Informed consent provided. Timeout performed. Skin prepped over the left flank and sterile drape applied maximum barrier sterile technique hand hygiene ultrasound sterile technique 1% lidocaine administered for local anesthesia Ultrasound utilized to confirm dilated left renal collecting system Utilizing ultrasonographic guidance successful 21-gauge needle puncture into the left renal collecting system IMAGES RECORDED AND STORED 0.18 WIRE GUIDE PLACED THROUGH THE NEEDLE FOLLOWED BY 5 SPANISH CATHETER, 0.35 WIRE GUIDE, DILATORS AND 12 SPANISH PERCUTANEOUS SURF OSTOMY CATHETER IN THE LEFT RENAL PELVIS IN SATISFACTORY POSITION HAND INJECTION 12 CC CYSTOGRAFIN DEMONSTRATES SATISFACTORY POSITION OF THE NEPHROSTOMY CATHETER Fluoroscopy 1.1 minute radiation dose 20.25 milligray Estimated blood loss 1 cc IMPRESSION: Successful left percutaneous surf ostomy drainage catheter placement Left nephrostogram demonstrates satisfactory position of the nephrostomy drainage catheter
[2025-04-26] MEDS: DOXYCYCLINE 100 MG TABLET PO ×2 (08:31→21:06)
[2025-04-26] MEDS: TAMSULOSIN HCL 0.4 MG CAPSULE PO (08:31)
[2025-04-26] MEDS: Mesalamine [Lialda] 1.2 gram Tablet,Delayed Release PO ×2 (08:35→21:06)
--- NOTE | 2025-04-26 08:58 | XR_ITS ---
Examination: Ultrasound-guided needle placement left renal collecting system Ultrasound left kidney Date and time: April 26, 2025 0934 hours INDICATIONS: Ultrasound guidance is needed for percutaneous nephrostomy today TECHNIQUE AND FINDINGS: Ultrasound utilized to confirm dilated left renal collecting system Utilizing ultrasonographic guidance successful 21-gauge needle puncture into the left renal collecting system, 0.18 wire guide is reduced with the needle into the left renal collecting system Ultrasound images recorded and stored IMPRESSION: Successful ultrasound-guided needle placement left renal collecting system
[2025-04-26] MEDS: fentaNYL CIT INJ 50 mCg/ML AMP 2ML 100 MCG IVP (09:42)
[2025-04-26 09:53] LABS: INR 1.1 (0.9-1.3); Partial Thromboplastin Time 35.3 Seconds (22.0-36.0); Prothrombin Time 11.8 Seconds (9.0-12.2)
[2025-04-26] MEDS: LIDOCAINE INJ PF 1% 30 ML VIAL 7 ML INFL (10:06)
--- NOTE | 2025-04-26 10:57 | PC.NURSE ---
1031 patient post left nephrostomy tube insertion, tolerated procedure well, report given to Shelly TO, patient transferred back to room 365
[2025-04-26 11:59] LABS: Troponin I 3.291 ng/mL (0.0-0.045)
--- NOTE | 2025-04-26 12:11 | ESPR_ITS ---
Documentation for date of: 04/26/25 Subjective Subjective Interval history: Patient went into placement of a left nephrostomy tube and also had atrial fibrillation last night with elevated troponin for about 40 minutes he was in atrial fibrillation with a rate of 140s and then converted to sinus rhythm He is on heparin drip Urology will evaluate him GoLytely was extremely helpful and His abdominal distention has gotten much better Exam Vital Signs Temp Pulse Resp BP Pulse Ox O2 Del Method O2 Flow Rate 97.4 F 79 20 120/53 L 96 Room Air 3 04/26/25 10:52 04/26/25 10:52 04/26/25 10:52 04/26/25 10:52 04/26/25 10:52 04/26/25 10:52 04/26/25 10:20 Objective Labs 04/26/25 05:20 04/26/25 05:20 Labs: Laboratory Results - last 24 hr 04/26/25 04/26/25 05:20 11:09 WBC 11.0 H RBC 3.44 L Hgb 10.6 L Hct 30.5 L MCV 89 MCH 30.8 MCHC 34.8 RDW Std Deviation 42.1 Plt Count 311 D Neut % (Auto) 78 Lymph % (Auto) 7 L [place] % (Auto) 13 H Eos % (Auto) 1 Baso % (Auto) 0 Neut # (Auto) 8.6 H Lymph # (Auto) 0.8 L [place] # (Auto) 1.4 H Eos # (Auto) 0.1 Baso # (Auto) 0.0 Immature Gran # (Auto) 0.05 H Absolute Nucleated RBC 0.00 Immature Gran % 1 H Nucleated RBC % 0 PT 11.8 INR 1.1 APTT 35.3 Sodium 133 L Potassium 3.5 Chloride 102 Carbon Dioxide 18.0 L Anion Gap 13 BUN 15 Creatinine 1.4 H Estim Creat Clear Calc 36.1 L eGFR 52 L BUN/Creatinine Ratio 11 L Glucose 142 H Calculated Osmolality 269 L Calcium 8.1 L Corrected Calcium 8.7 Phosphorus 2.8 Magnesium 2.0 Total Bilirubin 0.9 AST 11 ALT 8 L Alkaline Phosphatase 64 Troponin I 3.291 H* Total Protein 4.6 L Albumin 3.2 L Globulin 1.4 L Albumin/Globulin Ratio 2.3 H Impressions Impression: Stool impaction status post GoLytely flush Decrease abdominal distention New onset of atrial fibrillation Status post nephrostomy tube placement Awaiting urology evaluation Assessment & Plan A&P Narrative # Renal stone disease with left hydronephrosis and left proximal ureteric stones # Nausea vomiting secondary to 1 No evidence of acute exacerbation of the underlying inflammatory bowel disease I agree with the current management We will follow the patient Other medical problems include Diabetes mellitus type 2 Inflammatory bowel disease/UC/Crohn's Coronary artery disease status post PCI Hypothyroidism Time Spent With Patient Time: Total time spent is greater than 50% in coordination of care (as documented) at patient's floor/unit and/or counseling patient:
--- NOTE | 2025-04-26 12:20 | EKG_ITS ---
[facility] Test Date: 2025-04-26 Pat Name: SHIRA MICHEL Department: Room: S365A Gender: Male Refuge Manager: MARQUISEPipo : 1950 Requested By: Tati Lane Order Number: [id number] Reading MD: Tati Lane Measurements Intervals [place] Rate: 75 P: 26 [place]: 161 QRS: -11 QRSD: 98 T: -21 QT: 396 QTc: 445 Interpretive Statements SINUS RHYTHM WITH OCCASIONAL VENTRICULAR PREMATURE COMPLEXES NONSPECIFIC T-WAVE ABNORMALITY Compared to ECG 04/26/2025 05:47:24 Ventricular premature complex(es) now present Atrial fibrillation no longer present T-wave abnormality still present /store/S0/[id number].pdf
[2025-04-26] MEDS: METOPROLOL SUCCINATE XL 25 MG TABCR PO (13:10)
[2025-04-26] MEDS: ATORVASTATIN CALCIUM 20 MG TABLET 80 MG PO (13:10)
[2025-04-26 14:17] LABS: Troponin I 3.578 ng/mL (0.0-0.045)
--- NOTE | 2025-04-26 14:18 | EKG_ITS ---
[facility] Test Date: 2025-04-26 Pat Name: SHIRA MICHEL [facility] Skatesman: MARQUISEPipo : 1950 Requested By: Marilynn Gonzalez Order Number: [id number] Reading MD: Marilynn Gonzalez Measurements Intervals [place] Rate: 79 P: 34 [place]: 142 QRS: -9 QRSD: 98 T: -20 QT: 374 QTc: 429 Interpretive Statements SINUS RHYTHM NONSPECIFIC T-WAVE ABNORMALITY Compared to ECG 04/26/2025 12:46:42 Ventricular premature complex(es) no longer present T-wave abnormality still present /store/S0/[id number]/[id number].pdf
[2025-04-26 14:35] LABS: Partial Thromboplastin Time 32.5 Seconds (22.0-36.0)
[2025-04-26] MEDS: HEPARIN SOD INJ 5000 UNIT/ML VIAL 4000 UNIT IV (14:54)
[2025-04-26] MEDS: Heparin/D5w 25K 250 ML Ivpb 25,000 UNIT/250 ML BAG 7.916 UNIT IV (14:55)
--- NOTE | 2025-04-26 15:29 | PC.SS ---
SS follow up note; Patient is pending a Nephrostomy tube and pending Dr. Lili menjivar's, patient is on IV ABX. Patient will return back home when medically cleared.
--- NOTE | 2025-04-26 15:57 | PD.RESPRO ---
Documentation for date of: 04/26/25 Subjective Subjective Interval history: Patient examined at bedside. Overnight telemetry reported the patient went into atrial fibrillation with rate 140s sustained for approximately 40 minutes and reverted back to sinus rhythm. Most recent EKG done this afternoon showed sinus rhythm with no ST changes. Troponins are elevating Most recent at 3.578. Cardiology was consulted. He was started on heparin drip, high-dose aspirin, atorvastatin. Patient is complaining of epigastric pain but no typical chest pain. Also given IV pantoprazole 40 mg x 1. Will trend troponins and continue to closely monitor. He under went nephrostomy tube placement on the left this morning. Nephrostomy bag output is bright red color. Hematuria has improved but still dark urine noted at bedside. Urine output 600 cc past 24 hours. Endorses multiple bowel movements after starting GoLytely as management for his severe constipation. Abdominal distention has significantly improved. Urology will evaluate patient this afternoon for further recommendations in regards to his nephrostomy tube. Continue abx for bacterial pneumonia. Patient and his at bedside were fully updated and all questions were answered to satisfaction. Exam Vital Signs Temp Pulse Resp BP Pulse Ox O2 Del Method O2 Flow Rate 97.4 F 72 18 113/60 95 Room Air 3 04/26/25 12:00 04/26/25 15:56 04/26/25 12:00 04/26/25 13:10 04/26/25 12:00 04/26/25 12:00 04/26/25 10:20 Narrative Exam General: Elderly male, minor distress, anxious, cooperative HEENT: NCAT, No JVD noted. Mucosa dry. Pupils are equal and reactive to light bilaterally Cardiovascular: Normal S1 and S2. Regular rate and rhythm. Respiratory: Lungs are clear to auscultation bilaterally. No wheezing or crackles heard. coughing Abdomen: Soft, nontender, distended, normal bowel sounds : gamez in place, some hematuria, left nephrostomy tube draining blood Skin: Warm to touch, dry, no rashes noted Musculoskeletal: No gross injuries. Able to move all 4 extremities. No pitting edema Neuro: Alert and oriented x3. No focal neuro deficits. Psych: Normal affect and mood Objective Labs 04/26/25 05:20 04/26/25 05:20 Labs: Laboratory Results - last 24 hr 04/26/25 04/26/2525 05:20 11:09 13:21 WBC 11.0 H RBC 3.44 L Hgb 10.6 L Hct 30.5 L MCV 89 MCH 30.8 MCHC 34.8 RDW Std Deviation 42.1 Plt Count 311 D Neut % (Auto) 78 Lymph % (Auto) 7 L [place] % (Auto) 13 H Eos % (Auto) 1 Baso % (Auto) 0 Neut # (Auto) 8.6 H Lymph # (Auto) 0.8 L [place] # (Auto) 1.4 H Eos # (Auto) 0.1 Baso # (Auto) 0.0 Immature Gran # (Auto) 0.05 H Absolute Nucleated RBC 0.00 Immature Gran % 1 H Nucleated RBC % 0 PT 11.8 INR 1.1 APTT 35.3 32.5 Sodium 133 L Potassium 3.5 Chloride 102 Carbon Dioxide 18.0 L Anion Gap 13 BUN 15 Creatinine 1.4 H Estim Creat Clear Calc 36.1 L eGFR 52 L BUN/Creatinine Ratio 11 L Glucose 142 H Calculated Osmolality 269 L Calcium 8.1 L Corrected Calcium 8.7 Phosphorus 2.8 Magnesium 2.0 Total Bilirubin 0.9 AST 11 ALT 8 L Alkaline Phosphatase 64 Troponin I 3.291 H* 3.578 H* D Total Protein 4.6 L Albumin 3.2 L Globulin 1.4 L Albumin/Globulin Ratio 2.3 H Quality Measures Quality Measures VTE prophylaxis Advance care planning discussed with:: patient Assessment & Plan Assessment Current Active Medications: Generic Name Dose Route Start Last Admin Trade Name Freq PRN Reason Stop Dose Admin Acetaminophen 650 mg 04/22/25 13:04 04/26/25 08:31 Acetaminophen 325 Mg Tablet PO 05/22/25 13:03 650 mg Q6H PRN Administration Fever >100.3 or pain 1-4 Amlodipine Besylate 2.5 mg 04/23/25 09:00 04/26/25 08:31 Amlodipine Besylate 2.5 Mg Tablet PO 05/23/25 08:59 2.5 mg QDAY PAULA Administration Atorvastatin Calcium 80 mg 04/26/25 12:15 04/26/25 13:10 Atorvastatin Calcium 20 Mg Tablet PO 05/26/25 12:14 80 mg QDAY PAULA Administration Benzonatate 200 mg 04/24/25 14:26 04/26/25 00:14 Benzonatate 100 Mg Capsule PO 05/24/25 14:25 200 mg Q8HR PRN Administration COUGH Protocol Calcium Carbonate 600 mg 04/23/25 10:45 04/26/25 08:30 Calcium Carbonate 600 Mg Tablet PO 05/23/25 10:44 600 mg QDAY PAULA Administration Mesalamine [Lialda] 0 ea 04/25/25 09:00 04/26/25 08:35 1.2 Gram Tablet, PO 05/25/25 08:59 2 tablet Delayed Release BID PAULA Administration Dextrose 25 ml 04/22/25 13:17 Dextrose 50%-Water Inj 50 Ml Syringe IV 05/22/25 13:16 Q15MIN PRN BG 50-70 responsive npo pt Dextrose 50 ml 04/22/25 13:17 Dextrose 50%-Water Inj 50 Ml Syringe IV 05/22/25 13:16 Q15MIN PRN BG <50 OR BG <70 & pt unresponsive Doxycycline Hyclate 100 mg 04/24/25 21:00 04/26/25 08:31 Doxycycline 100 Mg Tablet PO 05/01/25 20:59 100 mg BID PAULA Administration Glucagon 1 mg 04/22/25 13:17 Glucagon Inj 1 Mg Vial IM Q15MIN PRN BG <70, and no IV access Heparin Sodium/Dextrose 25,000 unit in 250 mls @ 7.916 mls/hr 04/26/25 12:15 04/26/25 14:55 Heparin In D5w Ivpb IV 05/10/25 12:14 12 units/kg/hr .Q24H PAULA 7.916 mls/hr Administration Protocol 12 UNITS/KG/HR Insulin Human Lispro 0 unit 04/22/25 17:00 04/26/25 12:09 Insulin Lispro (Admelog) 1 Unit/0.01 Ml Unit SC 05/22/25 16:59 Not Given AC PAULA Protocol Levothyroxine Sodium 25 mcg 04/23/25 08:00 04/26/25 05:26 Levothyroxine Sodium 25 Mcg Tablet PO 05/23/25 07:59 25 mcg ACBR PAULA Administration Metoprolol Succinate 25 mg 04/26/25 12:15 04/26/25 13:10 Metoprolol Succinate Xl 25 Mg Tabcr PO 05/26/25 12:14 25 mg QDAY PAULA Administration Morphine Sulfate 2 mg 04/22/25 13:15 Morphine Sulf Inj 10 Mg/Ml Vial IVP Q4HR PRN pain 7-10 Ondansetron HCl 4 mg 04/22/25 13:04 Ondansetron Inj 2 Mg/Ml Inj 2 Ml IVP 05/22/25 13:03 Q6H PRN NAUSEA OR VOMITING Protocol Tamsulosin HCl 0.4 mg 04/22/25 13:15 04/26/25 08:31 Tamsulosin Hcl 0.4 Mg Capsule PO 05/22/25 13:14 0.4 mg DAILY PAULA Administration Temazepam 15 mg 04/23/25 13:57 04/26/25 03:12 Temazepam 15 Mg Capsule PO 04/28/25 13:56 15 mg QDAY PRN Administration Anxiety Plan Matt Varma is 74 yr male with PMH of [id number] type 2 diabetes, ulcerative colitis, CAD s/p PCI (3 stents) on Plavix, hypothyroidism presenting to ED on 04/22/2025 with chief complaint of left-sided abdominal pain. He has noticed decreased urine output with a distended abdomen. Urology Dr. Pearson was consulted for evaluation. Patient to be admitted for ROGELIO secondary to left-sided hydronephrosis in setting of ureter stone. #ROGELIO improving #Left hydronephrosis #Uterolithiasis #s/p left nephrostomy tube He has been complaining of left abdominal pain, decreased urine output, vomiting since Saturday. Denies any hematuria. CT abdomen pelvis confirmed 6 mm stone in left ureter and hydronephrosis left kidney. Denies any dysuria at this time. reatinine 1.5 (Baseline appears to be around 1.0), BUN 20, GFR 48. ROGELIO likely intrarenal in setting of stone, possible prerenal component as well as he has been having multiple episodes of vomiting and decreased p.o. intake since past few days. ?Consulted urology Dr. Pearson, appreciate recommendations--will evaluate this PM. nephrostomy tube placement on the left this morning. (on 04/26) -canceled transfer--requesting urology to evaluate patient ? DC Maintenance fluids ? Tamsulosin 0.4 mg daily ? Monitor MER's ? Continue Gamez catheter ? Strain urine for stone passage ? IV morphine 2 mg q4hr for pain #Constipation-improving Patient has a history of ulcerative colitis and having on and off diarrhea/constipation Complaining of abdominal distention, however patient passes gas, no proper BM yet. Abdominal x-ray showing large amounts of stool throughout the colon, negative for obstruction. -had large BM overnight -consulted GI Dr. Ayala, appreciate recs--started Golytely to clear bowel ?Continue lactulose 10 mg TID #CAD s/p 3 stents #New Paroxysmal A fib with RVR #Elevated troponins Patient follows cardiology Dr. Colon and currently taking Plavix for CAD history status post stents. Last appointment outpatient about 1 month ago and workup with stress test was negative. He denies being on any antihypertensives. Overnight telemetry reported the patient went into atrial fibrillation with rate 140s sustained for approximately 40 minutes and reverted back to sinus rhythm. Most recent EKG done this afternoon showed sinus rhythm with no ST changes. Troponins are elevating Most recent at 3.578. Cardiology was consulted. He was started on heparin drip, high-dose aspirin, atorvastatin. Patient is complaining of epigastric pain but no typical chest pain. -consulted cardiology Dr. Bejarano, appreciate recommendations -Continue heparin drip with protocol ?Continue aspirin 81 mg daily ?Continue atorvastatin 80 mg daily -IV pantoprazole 40 mg x 1 -Trend troponins -Plavix 75 mg daily was on hold in setting of hematuria #HLD Patient takes rosuvastatin 10 mg p.o. daily ? increase atorvastatin 40 mg daily (home dose) to 80mg daily #Hypothyroidism Most recent TSH 04/12/25 normal (1.67) Resume levothyroxine 25 mcg daily #Ulcerative colitis Is not a appear to be an acute flare, well controlled, denies any blood in the stool, denies any diarrhea but does endorse constipation since Saturday. Constipation more likely due to bladder distention. -Mesalamine 4.8 g BID #Qcu-lehpnqy-rhasellry type 2 diabetes, well-controlled On admission initial glucose 181. Last A1c 5.5 on 04/12/25. Patient takes metformin 500 twice daily and dapagliflozin 5 mg daily at home. -Held home medications -Bedside blood glucose checks ACHS -Insulin lispro sliding scale -Carb consistent low diet Disposition: MedSurg DVT prophylaxis: on heparin drip GI prophylaxis: PPI Diet: Low carb Lines: PIV CODE STATUS:Full code Patient care was discussed with attending physician Dr. Rivera Gonzalez, PGY1 Attending Provider Attestation/Addendum I have examined the patient, reviewed labs and imaging findings, discussed the case with the resident(s), and reviewed entered orders. I agree with the plan of care as outlined in this note, with these additional summaries/recommendations: Patient is a 74-year-old male with a medical history of AWAIS, diabetes mellitus type 2, GERD, hypothyroidism, ulcerative colitis, hyperlipidemia, BPH, and CAD presents to [facility] emergency department on 04/22/2025 with flank pain and nausea/vomiting. Patient seen at bedside. Overnight patient went into atrial fibrillation with rapid ventricular response for approximately 30 minutes. Amiodarone drip was ordered but prior to administration patient converted back to sinus rhythm. Today at bedside he denies chest pain and shortness of breath. We obtained troponin which is elevated to 3.291. EKG shows nonspecific T wave abnormality. Patient diagnosed with NSTEMI type II versus type I. Patient's Plavix has been on hold because of gross hematuria on admission and nephrostomy tube placement. Case discussed with cardiology and we will trend troponin. Patient given loading dose of aspirin and started on heparin drip. We will hold Plavix for now. Patient continues to respond well to GoLytely and abdomen appears much less distended and soft today. Gastroenterology following and continue GoLytely. Patient also diagnosed with ureterolithiasis. CT abdomen and pelvis revealed mild to moderate left hydronephrosis secondary to 6 mm proximal left ureteral calculus. Continue gamez catheter, pain management, and Flomax. Mild to moderate hydronephrosis seen on CT on admission. Patient is s/p nephrostomy tube placement today 04/26/2025 with interventional radiology. Urology has agreed to come evaluate patient on 04/26/2025. On admission there was noted hematuria which is most likely secondary to Gamez catheter placement in the ED +/- urolithiasis. Gross hematuria has relatively resolved and patient resumed on anticoagulation given elevated troponin. Continue to hold Plavix for now. Continue to monitor urinary output closely. On admission patient noted to have ROGELIO with creatinine 1.5 and BUN 20 which has now resolved with creatinine 1.3 and BUN 11. DC IV fluids. Continue insulin sliding scale with Accu-Cheks for diabetes mellitus type 2. Target blood sugar of 140-180 while hospitalized. A1c currently well-controlled. We will hold home Plavix for now given hematuria and will resume when able. Continue home temazepam as needed for sleep/anxiety. Continue abx for bacterial pneumonia. Continue home mesalamine for UC. Patient updated on the plan and in agreement. All questions answered to satisfaction. Please see residents note for additional details of management. Dr. Rivera MD
--- NOTE | 2025-04-26 17:11 | ESCONSULT_ITS ---
RE: SHIRA MICHEL : 1950 DATE OF CONSULTATION: 04/26/2025 CHIEF COMPLAINT: 1. Left flank pain with nausea and vomiting. No gross hematuria or high fever. 2. Difficulty in urinating with urinary retention. COMORBID CONDITIONS: 1. Hypertension. 2. Coronary artery disease. 3. Hypothyroidism. 4. Diabetes mellitus. 5. Ulcerative colitis. HISTORY OF PRESENT ILLNESS: This is a 74-year-old gentleman. He has history of left flank pain of 5 days' duration. This started slowly, then it became intense. The patient felt that he is bloated and full. He had difficulty in urinating at the same time. The patient took Vicodin at home, but his pain did not subside. He denies any history of prostatic problem before. No prostatic surgery. He was not taking any medication for his prostate gland. He has no history of stone disease in the past. REVIEW OF SYSTEMS: All systems reviewed and normal except as documented. PAST MEDICAL HISTORY: 1. Cardiac: Positive for coronary artery disease and hypercholesterolemia. 2. Gastrointestinal: Positive for GI disorder and colitis. 3. Musculoskeletal: Positive for musculoskeletal disorder. 4. Endocrine: Positive for diabetes mellitus and hypothyroidism. 5. Past history: Positive for shingles, mumps, and cancer. 6. Surgical history: Positive for cardiac surgery, coronary stent. PHYSICAL EXAMINATION: GENERAL: The patient is alert and oriented x2, not in acute distress. He is well developed, well nourished. He is lying comfortably in the bed. HEENT: Normocephalic and atraumatic. Eyes: No anemia or jaundice. NECK: Supple. Trachea is central. Thyroid is not enlarged. EXTREMITIES: Revealed no edema, cyanosis or clubbing. VITAL SIGNS: Stable. They are in HPI, in EMR. CHEST: Symmetrical. HEART: Regular rate and rhythm. ABDOMEN: No masses. Liver, spleen, and kidney not palpable. No CVA tenderness. He is status post placement of left nephrostomy tube and he has indwelling Ramesh catheter. In emergency room, his temperature was 97.6, pulse rate 72, respiratory rate 18, blood pressure 121/66, and pulse oximetry 96%. He had CAT scan of the abdomen and pelvis. This had revealed 5-6 mm stone, mid ureter with mild to moderate left hydronephrosis. RECOMMENDATIONS: 1. Remove Ramesh catheter. Give him a trial of voiding. 2. Tamsulosin 0.4 mg p.o. daily. 3. The patient is going to be scheduled for cysto, left retrograde pyelogram, ureteroscopy, laser stone fragmentation, stent placement, and removal of the nephrostomy tube if possible. He can be discharged home if he is stable and he has a cardiology clearance. All above issues were discussed with patient and his in great detail. Questions were answered to their satisfaction. Both verbalized understanding. DT: 13:21:43 TT: 17:09:00 Ref: [id number] - TID: [id number]
[2025-04-26 19:41] LABS: Troponin I 2.566 ng/mL (0.0-0.045)
--- NOTE | 2025-04-26 21:12 | ESCONSULT_ITS ---
HPI Data of Consult Requesting Physician: Tato Stafford MD Admitting Provider: Tato Stafford MD Attending Provider: Tato Stafford MD Primary Care Provider: Chance Somers MD Consult Narrative History of present illness: CC: Left flank pain Patient is a 74 year old male with a past medical history of CAD s/p PCI 3 stents (2016 & 2018) on Plavix, Diabetes Mellitus Type 2 non- insulin dependent, hypothyroidism, hyperlipidemia, history of Inflammatory bowel disease, and history of Gilbert's syndrome, and GERD disease. Patient presented to the emergency room via private car on 04/22/2025 with chief complain of left flank pain and urinary retention. Patient was complaining of 10/10 pain that worsened over the day leading to decreased appetite. Patient was admitted on 04/22/2025 for ROGELIO and Left Hydronephrosis secondary to 6 mm proximal left ureteral calculus. In ED, initial vitals were stable. WBCs 13, anemia hemoglobin 11.2, MCV 87. Sodium 129, potassium 4.2, ROGELIO with creatinine 1.5 (Baseline appears to be around 1.0), BUN 20, GFR 48 glucose 181, UA with hematuria. Negative for UTI. CT A/P shows left hydronephrosis with 6 mm kidney stone in proximal left ureter. Prostate normal in size, no bowel obstruction. Significant amount of stool through the colon noted on chest x-ray. Medication: 2 L NS bolus, Zofran, & Tylenol Urology Dr. Pearson was consulted for evaluation. Past Medical history: CAD s/p PCI 3 stents (2016 & 2018) on Plavix Diabetes Mellitus Type 2 non- insulin dependent hypothyroidism hyperlipidemia Chrohn's disease Gilbert's syndrome GERD disease. PSH: Vasectomy and CAD Social History: 10 pack year smoking history, quit over 40 years ago Denied Illicit Drug Use Denied Alchol Use Allergies: lisinopril, valsartan, azathioprine, sulfasalazine Medications: Plavix, Rosuvastatin, Metformin 750 mg BID, Levothyroxine, Mesalamine, Pantoprazole, Famotidine, Kerendia, Temazepam 04/26/2025: Cardiology consulted for new onset of A fib w/ RVR overnight. Overnight HR 146 w/ atrial Fibrillation. cc:: cc: Tato Stafford MD Review of Systems Review of Systems Narrative Review of Systems: General appearance: NO weight change, NO fatigue, NO weakness, NO fever, NO chills, NO night sweats, Yes cough Skin: NO rash, NO itching, NO sores, NO moles HEENT: NO Trauma, YES nausea, YES vomiting, NO visual changes, NO blurry vision, NO double vision, NO tinnitus, NO vertigo, NO ear discharge, NO rhinorrhea, NO stuffiness, NO sneezing, NO allergy, NO epistaxis. NO Hoarseness, NO sore throat, NO swollen neck. Cardiac: YES Palpitations, NO dyspnea on exertion, NO orthopnea, NO paroxysmal nocturnal dyspnea, NO edema Respiratory: NO Shortness of Breath, NO Wheezing, NO Cough, NO Sputum, NO hemoptysis GI:NO appetite, NO nausea, NO vomiting, NO dysphagia, NO changes in bowel frequency, NO stool color, NO diarrhea, NO constipation, NO hemetemesis, NO hemorrhoids, NO melena, NO hematechezia, NO abdominal pain, NO jaundice Renal: NO frequency, NO hesitancy, NO urgency, NO hematuria, NO nocturia, Yes incontinence MSK: NO muscle weakness, NO gout, NO arthritis, NO muscle stiffness Neuro: NO headaches, NO tremors, NO weakness, NO paralysis, NO seizures, NO loss of consciousness, NO numbness. Hem: NO anemia, NO easy bruising/bleeding, NO petechiae, NO purpura Endo: NO heat/cold intolerance, NO excessive sweating, NO polyuria, NO polydipsia, NO polyphagia, YEs thyroid problems, Yes diabetes Pysch: NO mood, NO anxiety, NO depression Exam Vital Signs Temp Pulse Resp BP Pulse Ox O2 Del Method O2 Flow Rate 97.4 F 67 18 115/63 94 L Room Air 3 04/26/25 16:04/26/25 16:04/26/25 16:04/26/25 16:04/26/25 16:04/26/25 16:04/26/25 10:20 Narrative Exam General Appearance: Alert & Oriented X3, well-nourished male who is lying in bed in no acute distress HEENT: Skull symmetrical and atraumatic. Conjunctivae pink and moist. Juanice appearing Pupils equal, round, reactive to light and accommodation (PERRL). Cardio: Normal Rate and Rhythm with S1 and S2 heart sounds. No murmurs or extra heart sounds auscultated. No bruits on carotid auscultation. Peripheral edema. Left carotid bruit. Lungs: Symmetric with good expansion. Chest and back non-tender. Breath sounds vesicular without crackles, wheezing or rhonchi Abdomen: Non-tender, Non-distended, Normal Reactive Bowel Sounds Neuro: Alert, cooperative, oriented to person, place, and time. Speech clear. CN grossly intact. Upper motor strength 5/5 and Lower motor strength 5/5. Sensation intact. Results Labs 04/27/25 04:33 04/27/25 04:33 Labs: Short CBC 04/26/25 Range/Units 05:20 WBC 11.0 H (3.8-10.6) Thou/mm3 Hgb 10.6 L (13.5-16.0) g/dL Hct 30.5 L (41.0-53.0) % Plt Count 311 D (140-440) Thou/mm3 BMP 04/26/25 05:20 Sodium 133 L Potassium 3.5 Chloride 102 Carbon Dioxide 18.0 L BUN 15 Creatinine 1.4 H Glucose 142 H Calcium 8.1 L Cardiac Enzymes 04/26/25 04/26/25 04/26/25 Range/Units 11:09 13:21 18:38 Troponin I 3.291 H* 3.578 H* D 2.566 H* D (0.0-0.045) ng/mL Liver Function 04/26/25 Range/Units 05:20 Total Bilirubin 0.9 (0.3-1.2) mg/dL AST 11 (0-34) U/L ALT 8 L (10-49) U/L Alkaline Phosphatase 64 (46-116) U/L Albumin 3.2 L (3.4-4.8) gm/dL Quality Measures Quality Measures VTE prophylaxis Advance care planning discussed with:: patient and spouse Medications Home Medications and Allergies Home Medications ?Medication ?Instructions ?Recorded ?Confirmed ?Type cholecalciferol (vitamin D3) 50 2,000 unit PO QDAY #0 caps 05/30/15 04/22/25 History mcg (2,000 unit) capsule (Vitamin D3) levothyroxine 25 mcg tablet 25 mcg PO QAM ##90 5 04/22/25 History coenzyme Q10 100 mg capsule 100 mg PO QDAY 06/16/18 History (CoQ-10) clopidogrel 75 mg tablet (Plavix) 75 mg PO EVERYOTHERD AY 01/05/21 04/22/25 History mesalamine 1.2 gram tablet,delayed 4.8 g PO BID 04/22/25 History release (Lialda) metformin 500 mg tablet,extended 500 mg PO BID 1 04/22/25 History release 24 hr temazepam 15 mg capsule 15 mg PO QDAY PRN Anxiety 04/22/25 History vit C 250 mg-vit E 90 mg-zinc 40 1 tab PO BID 03/30/24 04/22/25 History mg-copper 1 [id number] capsule (PreserVision AREDS-2) Allergies Allergy/AdvReac Type Severity Reaction Status Date / Time lisinopril Allergy Intermediate Headache Verified 04/20/25 18:43 valsartan Allergy Intermediate Headache Verified 04/20/25 18:43 azathioprine Allergy Nausea Verified 04/20/25 18:43 sulfasalazine Allergy Anaphylaxis Verified 04/20/25 18:43 Visit Medications Acetaminophen (Acetaminophen 325 Mg Tablet) 650 mg PO Q6H PRN PRN Reason: Fever >100.3 or pain 1-4 Stop: 05/22/25 13:03 Last Admin: 04/26/25 08:31 Dose: 650 mg Amlodipine Besylate (Amlodipine Besylate 2.5 Mg Tablet) 2.5 mg PO QDAY [facility] Stop: 05/23/25 08:59 Last Admin: 04/26/25 08:31 Dose: 2.5 mg Atorvastatin Calcium (Atorvastatin Calcium 20 Mg Tablet) 80 mg PO QDAY [facility] Stop: 05/26/25 12:14 Last Admin: 04/26/25 13:10 Dose: 80 mg Benzonatate (Benzonatate 100 Mg Capsule) 200 mg PO Q8HR PRN; Protocol PRN Reason: COUGH Stop: 05/24/25 14:25 Last Admin: 04/26/25 00:14 Dose: 200 mg Calcium Carbonate (Calcium Carbonate 600 Mg Tablet) 600 mg PO QDAY [facility] Stop: 05/23/25 10:44 Last Admin: 04/26/25 08:30 Dose: 600 mg Mesalamine [Lialda] 1.2 Gram Tablet, Delayed Release 0 ea PO BID [facility] Stop: 05/25/25 08:59 Last Admin: 04/26/25 21:06 Dose: 2 tablet Dextrose (Dextrose 50%-Water Inj 50 Ml Syringe) 25 ml IV Q15MIN PRN PRN Reason: BG 50-70 responsive npo pt Stop: 05/22/25 13:16 Dextrose (Dextrose 50%-Water Inj 50 Ml Syringe) 50 ml IV Q15MIN PRN PRN Reason: BG <50 OR BG <70 & pt unresponsive Stop: 05/22/25 13:16 Doxycycline Hyclate (Doxycycline 100 Mg Tablet) 100 mg PO BID [facility] Stop: 05/01/25 20:59 Last Admin: 04/26/25 21:06 Dose: 100 mg Glucagon (Glucagon Inj 1 Mg Vial) 1 mg IM Q15MIN PRN PRN Reason: BG <70, and no IV access Heparin Sodium/Dextrose (Heparin In D5w Ivpb) 25,000 unit in 250 mls @ 7.916 mls/hr IV .Q24H [facility]; Protocol Stop: 05/10/25 12:14 Last Admin: 04/26/25 14:55 Dose: 12 units/kg/hr, 7.916 mls/hr Insulin Human Lispro (Insulin Lispro (Admelog) 1 Unit/0.01 Ml Unit) 0 unit SC AC [facility]; Protocol Stop: 05/22/25 16:59 Last Admin: 04/26/25 17:11 Dose: Not Given Levothyroxine Sodium (Levothyroxine Sodium 25 Mcg Tablet) 25 mcg PO [facility] Stop: 05/23/25 07:59 Last Admin: 04/26/25 05:26 Dose: 25 mcg Metoprolol Succinate (Metoprolol Succinate Xl 25 Mg Tabcr) 25 mg PO QDAY [facility] Stop: 05/26/25 12:14 Last Admin: 04/26/25 13:10 Dose: 25 mg Morphine Sulfate (Morphine Sulf Inj 10 Mg/Ml Vial) 2 mg IVP Q4HR PRN PRN Reason: pain 7-10 Ondansetron HCl (Ondansetron Inj 2 Mg/Ml Inj 2 Ml) 4 mg IVP Q6H PRN; Protocol PRN Reason: NAUSEA OR VOMITING Stop: 05/22/25 13:03 Tamsulosin HCl (Tamsulosin Hcl 0.4 Mg Capsule) 0.4 mg PO DAILY PAULA Stop: 05/22/25 13:14 Last Admin: 04/26/25 08:31 Dose: 0.4 mg Temazepam (Temazepam 15 Mg Capsule) 15 mg PO QDAY PRN PRN Reason: Anxiety Stop: 04/28/25 13:56 Last Admin: 04/26/25 03:12 Dose: 15 mg Discontinued Medications Acetaminophen (Acetaminophen 500 Mg Tablet) 1,000 mg PO X1 ONE Stop: 04/22/25 05:18 Last Admin: 04/22/25 05:34 Dose: 1,000 mg Albuterol (Albuterol Rt 2.5 Mg/0.5 Ml Nebu) 5 mg INH X1 ONE Stop: 04/24/25 14:31 Last Admin: 04/24/25 14:49 Dose: 5 mg Aspirin (Aspirin 325 Mg Tablet) 325 mg PO X1 ONE Stop: 04/26/25 12:13 Last Admin: 04/26/25 13:11 Dose: 325 mg Benzonatate (Benzonatate 100 Mg Capsule) 100 mg PO X1 ONE; Protocol Stop: 04/24/25 02:43 Last Admin: 04/24/25 03:16 Dose: 100 mg Budesonide (Budesonide Rt 0.25 Mg/2 Ml Nebu) 0.25 mg INH X1 ONE Stop: 04/24/25 14:28 Last Admin: 04/24/25 14:49 Dose: 0.25 mg Mesalamine [Lialda] 1.2 Gram Tablet, Delayed Release 0 ea PO BID PA[facility] Stop: 05/23/25 08:59 Last Admin: 04/23/25 10:02 Dose: Not Given Fentanyl Citrate (Fentanyl Cit Inj 50 Mcg/Ml Amp 2ml) 100 mcg IVP X1 ONE Stop: 04/26/25 09:40 Last Admin: 04/26/25 09:42 Dose: 100 mcg Heparin Sodium (Porcine) (Heparin Sod Inj 5000 Unit/Ml Vial) 4,000 unit IV X1 ONE; Protocol Stop: 04/26/25 12:16 Last Admin: 04/26/25 14:54 Dose: 4,000 unit Sodium Chloride (Ns) 1,000 mls @ 999 mls/hr IV .Q1H1M ONE Stop: 04/22/25 05:24 Last Infusion: 04/22/25 05:49 Dose: Infused Sodium Chloride (Ns) 1,000 mls @ 999 mls/hr IV .Q1H1M ONE Stop: 04/22/25 06:18 Last Infusion: 04/22/25 07:10 Dose: Infused Sodium Chloride (Ns) 1,000 mls @ 80 mls/hr IV .[id number] ONE Stop: 04/23/25 01:41 Last Admin: 04/22/25 13:35 Dose: 80 mls/hr Sodium Chloride (Ns) 1,000 mls @ 75 mls/hr IV .[id number] ONE Stop: 04/23/25 21:18 Last Admin: 04/23/25 08:50 Dose: 75 mls/hr Ceftriaxone Sodium/Dextrose (Rocephin/D5w 1gm Iv Premix) 1 gm in 50 mls @ 100 mls/hr IV QDAY PA[facility] Stop: 04/30/25 17:14 Last Admin: 04/25/25 08:27 Dose: 100 mls/hr Lactated Ringer's (Lactated Ringers) 1,000 mls @ 70 mls/hr IV .[id number] ONE Stop: 04/24/25 09:16 Last Admin: 04/23/25 21:07 Dose: 70 mls/hr Sodium Chloride (Ns) 1,000 mls @ 80 mls/hr IV .[id number] ONE Stop: 04/24/25 23:21 Last Admin: 04/24/25 13:28 Dose: 80 mls/hr Sodium Chloride (Ns) 1,000 mls @ 70 mls/hr IV .[id number] ONE Stop: 04/25/25 01:09 Last Admin: 04/24/25 19:06 Dose: Not Given Amiodarone HCl/Dextrose (Nexterone Ivpb) 150 mg in 100 mls @ 600 mls/hr IV .Q10M ONE Stop: 04/26/25 06:30 Last Admin: 04/26/25 07:27 Dose: Not Given Amiodarone HCl/Dextrose (Nexterone Ivpb) 360 mg in 200 mls @ 33.333 mls/hr IV .Q6H ONE Stop: 04/26/25 12:20 Last Admin: 04/26/25 07:29 Dose: Not Given Amiodarone HCl/Dextrose (Nexterone Ivpb) 360 mg in 200 mls @ 16.667 mls/hr IV .Q12H [facility] Stop: 04/27/25 06:20 Last Admin: 04/26/25 07:29 Dose: Not Given Lactulose (Lactulose Syrup 20 Gm/30 Ml Udc) 10 gm PO QDAY [facility]; Protocol Stop: 05/22/25 13:14 Last Admin: 04/22/25 13:36 Dose: 10 gm Lactulose (Lactulose Syrup 20 Gm/30 Ml Udc) 10 gm PO TID PAULA; Protocol Stop: 05/23/25 07:59 Last Admin: 04/25/25 13:15 Dose: 10 gm Lidocaine HCl (Lidocaine Inj Pf 1% 30 Ml Vial) 7 ml INFL X1 ONE Stop: 04/26/25 09:40 Last Admin: 04/26/25 10:06 Dose: 7 ml Magnesium Citrate (Magnesium Citrate 300 Ml Btl) 300 ml PO X1 ONE Stop: 04/22/25 05:51 Last Admin: 04/22/25 06:45 Dose: 300 ml Home Medication- Please Speak With Patient Caregiver To Have Rx Brought To [facility] 4.8 gm PO BID PAULA Stop: 05/23/25 08:59 Last Admin: 04/24/25 21:21 Dose: 4.8 gm Ondansetron HCl (Ondansetron Odt 4 Mg Tabrap) 4 mg PO X1 ONE; Protocol Stop: 04/22/25 03:27 Last Admin: 04/22/25 04:43 Dose: Not Given Ondansetron HCl (Ondansetron Inj 2 Mg/Ml Inj 2 Ml) 4 mg IVP X1 ONE Stop: 04/22/25 04:25 Last Admin: 04/22/25 04:42 Dose: 4 mg Pantoprazole Sodium (Pantoprazole Inj 40 Mg Vial) 40 mg IVP X1 ONE Stop: 04/26/25 13:38 Last Admin: 04/26/25 14:29 Dose: 40 mg Polyethylene Glycol/Electrolytes (Na Farias/Nahco3/Rajesh/Peg (Golytely) 4,000 Ml Btl) 4,000 ml PO X1 ONE Stop: 04/25/25 13:00 Last Admin: 04/25/25 13:16 Dose: 1 bottle Potassium Chloride (Potassium Chloride 20 Meq Tabcr) 20 meq PO X1 ONE Stop: 04/23/25 07:49 Last Admin: 04/23/25 08:49 Dose: 20 meq Potassium Chloride (Potassium Chloride 20 Meq Tabcr) 40 meq PO X1 ONE Stop: 04/26/25 08:22 Last Admin: 04/26/25 08:30 Dose: 40 meq Potassium Phos/Sodium Phos (Naph,[facility] Mbdb 1 Packet (1.5 Gm)) 1 packet PO X1 ONE Stop: 04/23/25 07:49 Last Admin: 04/23/25 08:49 Dose: 1 packet Assessment & Plan Plan Patient is a 74 year old male with a past medical history of CAD s/p PCI 3 stents (2017 & 2019) on Plavix, Diabetes Mellitus Type 2 non- insulin dependent, hypothyroidism, hyperlipidemia, history of Infalmmatory bowel disease, and history of Gilbert's syndrome, and GERD disease. Cardiology following given new onset of afib w/ rvr now rate controlled after amio completed and transitioned to oral Metroprolol XL. #New Onset of Atrial Fibrillation w/ RVR Patient presented with new onset of atrial fibrillation with rvr as noted on EKG overnight. Patient denied chest pain or shortness of breath. Positive for palpitaitons. Patient started on Amiodarone drip. Atrial fibrillation, likely in the setting of pneumonia and hydronephrosis increased cardiac strain. EKG: Atrial fibrillation. TSH 1.67 Lipid Panel: Triglycerides 172, Cholesterol 101, LDL 31, HDL 36 CHADsVAS score 4 points HAS BLED 2 points Plan -Metoprolol XL 25 mg Qday -Keep K >4 and Mg >2 -Heparin drip -Tansition Patient to Eliquis 5 mg BID (Cr 1.4, caution) -Echo #NSTEMI Type II, likely demand ischemia Patient has a past medical history of CAD and Diabetes Mellitus which puts patient at increased risk of cardiac events. Patient denied chest pain and EKG unremarkable. Troponin (04/26/2025): 3.291, 3.578, 2.566 Plan -Stop trending troponin as peaked -monitor Telebox for any changes -Follow up with Dr. Colon as outpatinet. #CAD s/p PCI 3 stents #Hyperlipidemia Patient follows Dr. Colon and takes #ROGELIO, likely obstructive #Left hydronephrosis s/p L. nephrostomy tube Patient presented with hydronephrosis of left flank, secondary to urterolithiasis. On admission, Cr 1.5 which >0.3 baseline of 1.0. BUN/CR 13. Decreased urine output. Abdomen/Pelvis: mild to moderate left hydronephrosis secondary to 8 mm proximal left ureteral calculus. Plan -Strict in and outs -Tamsulosin -avoid nephrotoxins -renally dose mediation #New Hypertension No previous hypertensive medicaiton listed as part of home medication list. Patient is in pain secondary to nephrostomy, likely elevated BP to pain Plan -pain management -amlodipine 2.5 mg qday given rogelio #Diabetes Mellitus Type II, non insulin dependent Home medication of metformin, caution with CrCl currently 36 vs nearing 30 CrCl, consider d/c medication. A1c 5.5 Plan -Sliding Scale #Hypothyroidism TSH within normal limits Plan -Resume Levothyroxine 25 mcgt PO ACBR -Consider Resuming Plavix when after nephrostomy tube placement, #Constipation #Inflammatory Bowel Disease (UC ? Chrohns?) GI Consulted as patient has a past medical history of inflammatory bowel disease and presented with abdominal distention and constipation. Improved since admission as patient reporte bowel movement. Plan -home medication Mesalamine -Golylte -Dr. Ayala Following #History of GERD Protonix. #[place] Disease Health Maintenance: Disp: Pt is currently admitted to floors for further management of ROGELIO and hydronephrosis s/p nephrostomy tubes and Atrial Fibrillation w/ rvr-known patient of Dr. Colon's. Cardiology following. FEN: low carb consistent DVT: Heparin->Eliquis Code: Full Code - The patient's plan was discussed with attending Dr. Darci Mckeon MD PGY1 Internal Medicine Attending Provider Attestation/Addendum I have personally seen and examined the patient separately on the above date of service and discussed the plan of care with the resident. I reviewed the resident Dr. Shaila Mckeon consultation progress note and agree with the resident findings and plan in the note above and have also edited the documentation to reflect my findings and plan. A 74-year-old male patient with a past medical CAD s/p PCI with 3 stents in 2017 and 2019 on Plavix, hypertension, type 2 diabetes mellitus, hypothyroidism, hyperlipidemia, IBD, Gilbert syndrome, GERD disease presented to the emergency room for further evaluation of left flank pain as well as urinary retention. Patient follows Dr. Colon as outpatient for cardiology. Patient was found to have acute kidney injury secondary to obstructive uropathy from nephrolithiasis as well as ureterolithiasis and had left hydronephrosis requiring left nephrostomy tube. Patient will also was found to have pneumonia presently. She is also being treated with IV antibiotics. During the hospitalization patient developed atrial fibrillation with RVR yesterday overnight and hence cardiology was consulted for further evaluation. EKG reviewed and patient does have atrial fibrillation with RVR. Patient was started on amiodarone bolus along with amiodarone drip as his blood pressure was borderline and patient did convert to normal sinus rhythm eventually. Recommend to continue amiodarone drip and start the patient on amiodarone 200 mg twice daily and then eventually transition to amiodarone 200 mg once daily. Heparin drip for anticoagulation for now and then can be transition to Eliquis if no further procedures planned per patient. Continue telemetry and keep potassium greater than 4 and magnesium within 2.0. On patient was also noted to have elevated troponins which continue to rise from 3.291-3.57 and now decreased to 2.566. Patient denies any chest pain or chest pressure except for the chest discomfort from the palpitations with atrial fibrillation with RVR. No recent chest pain or chest pressure episodes. Patient does have a history of CAD status post PCI with 3 stents with last in 2019. - Troponin elevation mostly secondary to supply/demand mismatch in the setting of atrial fibrillation with RVR, sepsis, acute kidney injury alcohol pneumonia and antibiotics. Recommend to continue heparin drip. Continue Plavix, statin. No beta-paul because of the low blood pressure. Check TSH A1c and lipid profile along with an echocardiogram to evaluate the LV function as well as to rule out any kind of regional wall motion abnormalities. Que Bejarano M.D. Interventional Cardiology
[2025-04-26 21:49] LABS: Partial Thromboplastin Time 40.8 Seconds (22.0-36.0)
[2025-04-26] MEDS: HEPARIN SOD INJ 5000 UNIT/ML VIAL 1950 UNIT IV (22:57)
[2025-04-27] VITALS (9 sets, daily range): BP systolic 130–150; BP diastolic 70–77; PULSE 76–93; RESP 17–21; TEMP 36.2–36.7; O2SAT 94–98
[2025-04-27 01:23] LABS: Troponin I 1.493 ng/mL (0.0-0.045)
[2025-04-27 05:28] LABS: Basophils # (Auto) 0.0 Thou/mm3 (0.0-0.2); Basophils % (Auto) 1 % (0-2.5); Eosinophils # (Auto) 0.2 Thou/mm3 (0.0-0.5); Eosinophils % (Auto) 3 % (0-10); Hematocrit 29.3 % (41.0-53.0); Hemoglobin 10.3 g/dL (13.5-16.0); Immature Granulocytes Auto 0.02 Thou/mm3 (0.00-0.00); Lymphocytes # (Auto) 0.9 Thou/mm3 (1.0-4.8); Lymphocytes % (Auto) 12 % (10-50); Mean Corpuscular HGB Conc 35.2 g/dl (31.0-37.0); Mean Corpuscular Hemoglobin 30.2 pg (25.0-35.0); Mean Corpuscular Volume 86 fL (80-100); Monocytes # (Auto) 0.8 Thou/mm3 (0.0-0.8); Monocytes % (Auto) 11 % (0-12); Neutrophils # (Auto) 5.5 Thou/mm3 (1.8-7.7); Neutrophils % (Auto) 74 % (37-80); Nucleated Red Blood Cell # 0.00 Thou/mm3 (0.00-0.00); Nucleated Red Blood Cell % 0 /100 WBC (0); Platelet Count 375 Thou/mm3 (140-440); RDW Standard Deviation 40.7 fL (35.1-43.9); Red Blood Count 3.41 Miln/mm3 (4.50-5.90); White Blood Count 7.5 Thou/mm3 (3.8-10.6)
[2025-04-27 05:37] LABS: Partial Thromboplastin Time 43.7 Seconds (22.0-36.0)
[2025-04-27 05:53] LABS: Alanine Aminotransferase 9 U/L (10-49); Albumin, Serum 3.2 gm/dL (3.4-4.8); Albumin/Globulin Ratio 1.8 (1.2-2.2); Alkaline Phosphatase 61 U/L (46-116); Anion Gap 7 (7-16); Aspartate Amino Transferase 14 U/L (0-34); BUN/Creatinine Ratio 12 Ratio (12-20); Bilirubin,Total 1.0 mg/dL (0.3-1.2); Blood Urea Nitrogen 11 mg/dL (9-23); Calcium 7.9 mg/dL (8.3-10.6); Calcium (Corrected) 8.5 mg/dL (8.5-10.1); Carbon Dioxide 23.7 mMol/L (20.0-31.0); Chloride 108 mMol/L (98-107); Creatinine (Component) 0.9 mg/dL (0.6-1.3); Estimated Creatinine Clearance 58.4 mL/min (>60); Globulin 1.8 gm/dL (2.3-3.5); Glucose 130 mg/dL (74-106); Magnesium 2.0 mg/dL (1.6-2.6); Osmolality,Calculated 278 (275-295); Phosphorous 2.9 mg/dL (2.4-5.1); Potassium 3.8 mMol/L (3.4-5.1); Sodium 139 mMol/L (136-145); Total Protein 5.0 gm/dL (5.7-8.2); eGFR > 60 See Note
[2025-04-27] MEDS: LEVOTHYROXINE SODIUM 25 MCG TABLET PO (06:12)
[2025-04-27] MEDS: HEPARIN SOD INJ 5000 UNIT/ML VIAL 2000 UNIT IV (06:46)
[2025-04-27] MEDS: ATORVASTATIN CALCIUM 20 MG TABLET 80 MG PO (09:06)
[2025-04-27] MEDS: TAMSULOSIN HCL 0.4 MG CAPSULE PO (09:07)
[2025-04-27] MEDS: DOXYCYCLINE 100 MG TABLET PO ×2 (09:07→20:15)
[2025-04-27] MEDS: BENZONATATE 100 MG CAPSULE 200 MG PO (09:08)
[2025-04-27] MEDS: CALCIUM CARBONATE 600 MG TABLET PO ×2 (09:08→20:15)
[2025-04-27] MEDS: METOPROLOL SUCCINATE XL 25 MG TABCR PO ×2 (09:09→18:29)
[2025-04-27] MEDS: Mesalamine [Lialda] 1.2 gram Tablet,Delayed Release PO ×2 (09:10→20:15)
[2025-04-27] MEDS: APIXABAN 2.5 MG TABLET 5 MG PO ×2 (09:19→20:15)
[2025-04-27] MEDS: INSULIN LISPRO (AdmeLOG) 1 UNIT/0.01 ML UNIT SC ×2 (11:42→17:03)
--- NOTE | 2025-04-27 11:54 | PC.SS ---
SS follow up: INSTRUCTOR NURSE met with patient to discuss home health services. Patient was provided with community resource handout with home health agencies listed. No preferred agency at this time.
[2025-04-27 13:39] LABS: Partial Thromboplastin Time 35.9 Seconds (22.0-36.0)
--- NOTE | 2025-04-27 14:39 | ESPR_ITS ---
<Statement entered by Kike Alvarez MD - 04/29/25 13:56> I have discussed and was present for the essential components of the history, physical examination, diagnosis, and treatment plan with the resident. I agree with the patient's care as documented by the resident and amended herein by me. Kike Alvaerz MD FACP. Documentation for date of: 04/27/25 Subjective Subjective Interval history: Patient seen and examined at bedside today. He is alert and oriented, lying in bed in no acute distress. He denies chest pain, palpitations, or dizziness. He does report mild shortness of breath when taking a deep breath, along with a mild cough and occasional hiccups. He continues to have mild left flank pain but denies any discomfort with the gamez catheter. He notes reddish urine through the gamez but no new clots. He did have a dark brown bowel movement overnight and is passing gas; he denies nausea, vomiting, or fever. He was updated on his condition and current plan and all questions were answered. Pertinent Labs: * Troponin downtrendin.49 (from peak ~3.5) * Hgb: 10.3 * Electrolytes: Normal * Glucose: 130 * Calcium: 7.9 ? increased calcium carbonate to 600 mg BID * Cr: 0.9 (improving from 1.4 yesterday) Exam Vital Signs Temp Pulse Resp BP Pulse Ox O2 Del Method O2 Flow Rate 97.2 F 83 18 133/70 H 96 Room Air 3 04/27/25 12:00 04/27/25 12:04/27/25 12:04/27/25 12:04/27/25 12:04/27/25 12:00 04/26/25 10:20 Narrative Exam Physical Exam: Gen: Elderly male, alert, mild distress, cooperative. CV: RRR, normal S1/S2, no murmurs. Resp: Clear to ausc, mild cough, no distress. Abd: Soft, nontender, mild distention, normal BS. : Gamez in place with reddish urine, nephrostomy draining bright red but stable. Neuro: A&O x3, no focal deficits. Skin: Warm, dry, no rashes, no bruising. Objective Labs 04/27/25 04:33 04/27/25 04:33 Labs: Laboratory Results - last 24 hr 04/26/25 04/26/25 04/27/25 18:38 21:09 00:45 WBC RBC Hgb Hct MCV MCH MCHC RDW Std Deviation Plt Count Neut % (Auto) Lymph % (Auto) [place] % (Auto) Eos % (Auto) Baso % (Auto) Neut # (Auto) Lymph # (Auto) [place] # (Auto) Eos # (Auto) Baso # (Auto) Immature Gran # (Auto) Absolute Nucleated RBC Immature Gran % Nucleated RBC % APTT 40.8 H Sodium Potassium Chloride Carbon Dioxide Anion Gap BUN Creatinine Estim Creat Clear Calc eGFR BUN/Creatinine Ratio Glucose Calculated Osmolality Calcium Corrected Calcium Phosphorus Magnesium Total Bilirubin AST ALT Alkaline Phosphatase Troponin I 2.566 H* D 1.493 H* D Total Protein Albumin Globulin Albumin/Globulin Ratio 04/27/25 04/27/25 04:33 13:00 WBC 7.5 RBC 3.41 L Hgb 10.3 L Hct 29.3 L MCV 86 MCH 30.2 MCHC 35.2 RDW Std Deviation 40.7 Plt Count 375 D Neut % (Auto) 74 Lymph % (Auto) 12 [place] % (Auto) 11 Eos % (Auto) 3 Baso % (Auto) 1 Neut # (Auto) 5.5 Lymph # (Auto) 0.9 L [place] # (Auto) 0.8 Eos # (Auto) 0.2 Baso # (Auto) 0.0 Immature Gran # (Auto) 0.02 H Absolute Nucleated RBC 0.00 Immature Gran % 0 Nucleated RBC % 0 APTT 43.7 H 35.9 Sodium 139 Potassium 3.8 Chloride 108 H Carbon Dioxide 23.7 Anion Gap 7 BUN 11 Creatinine 0.9 D Estim Creat Clear Calc 58.4 L eGFR > 60 BUN/Creatinine Ratio 12 Glucose 130 H Calculated Osmolality 278 Calcium 7.9 L Corrected Calcium 8.5 Phosphorus 2.9 Magnesium 2.0 Total Bilirubin 1.0 AST 14 ALT 9 L Alkaline Phosphatase 61 Troponin I Total Protein 5.0 L Albumin 3.2 L Globulin 1.8 L Albumin/Globulin Ratio 1.8 Quality Measures Quality Measures VTE prophylaxis Advance care planning discussed with:: patient Assessment & Plan Assessment Current Active Medications: Generic Name Dose Route Start Last Admin Trade Name Freq PRN Reason Stop Dose Admin Acetaminophen 650 mg 04/22/25 13:04 04/26/25 23:38 Acetaminophen 325 Mg Tablet PO 05/22/25 13:03 650 mg Q6H PRN Administration Fever >100.3 or pain 1-4 Amlodipine Besylate 2.5 mg 04/23/25 09:00 04/27/25 09:08 Amlodipine Besylate 2.5 Mg Tablet PO 05/23/25 08:59 2.5 mg QDAY PAULA Administration Apixaban 5 mg 04/27/25 09:00 04/27/25 09:19 Apixaban 2.5 Mg Tablet PO 05/27/25 08:59 5 mg BID PAULA Administration Atorvastatin Calcium 80 mg 04/26/25 12:15 04/27/25 09:06 Atorvastatin Calcium 20 Mg Tablet PO 05/26/25 12:14 80 mg QDAY PAULA Administration Benzonatate 200 mg 04/24/25 14:26 04/27/25 09:08 Benzonatate 100 Mg Capsule PO 05/24/25 14:25 200 mg Q8HR PRN Administration COUGH Protocol Calcium Carbonate 600 mg 04/27/25 09:00 04/27/25 09:08 Calcium Carbonate 600 Mg Tablet PO 05/27/25 08:59 600 mg BID PAULA Administration Mesalamine [Lialda] 0 ea 04/25/25 09:00 04/27/25 09:10 1.2 Gram Tablet, PO 05/25/25 08:59 2 tablet Delayed Release BID PAULA Administration Dextrose 25 ml 04/22/25 13:17 Dextrose 50%-Water Inj 50 Ml Syringe IV 05/22/25 13:16 Q15MIN PRN BG 50-70 responsive npo pt Dextrose 50 ml 04/22/25 13:17 Dextrose 50%-Water Inj 50 Ml Syringe IV 05/22/25 13:16 Q15MIN PRN BG <50 OR BG <70 & pt unresponsive Doxycycline Hyclate 100 mg 04/24/25 21:00 04/27/25 09:07 Doxycycline 100 Mg Tablet PO 05/01/25 20:59 100 mg BID PAULA Administration Glucagon 1 mg 04/22/25 13:17 Glucagon Inj 1 Mg Vial IM Q15MIN PRN BG <70, and no IV access Insulin Human Lispro 0 unit 04/22/25 17:00 04/27/25 11:42 Insulin Lispro (Admelog) 1 Unit/0.01 Ml Unit SC 05/22/25 16:59 1 unit AC PAULA Administration Protocol Levothyroxine Sodium 25 mcg 04/23/25 08:00 04/27/25 06:12 Levothyroxine Sodium 25 Mcg Tablet PO 05/23/25 07:59 25 mcg ACBR PAULA Administration Metoprolol Succinate 25 mg 04/26/25 12:15 04/27/25 09:09 Metoprolol Succinate Xl 25 Mg Tabcr PO 05/26/25 12:14 25 mg QDAY PAULA Administration Morphine Sulfate 2 mg 04/22/25 13:15 Morphine Sulf Inj 10 Mg/Ml Vial IVP Q4HR PRN pain 7-10 Ondansetron HCl 4 mg 04/22/25 13:04 Ondansetron Inj 2 Mg/Ml Inj 2 Ml IVP 05/22/25 13:03 Q6H PRN NAUSEA OR VOMITING Protocol Tamsulosin HCl 0.4 mg 04/22/25 13:15 04/27/25 09:07 Tamsulosin Hcl 0.4 Mg Capsule PO 05/22/25 13:14 0.4 mg DAILY PAULA Administration Temazepam 15 mg 04/23/25 13:57 04/26/25 23:38 Temazepam 15 Mg Capsule PO 04/28/25 13:56 15 mg QDAY PRN Administration Anxiety Plan Plan #Paroxysmal Atrial Fibrillation with RVR New onset, likely secondary to stress, volume shifts, or ROGELIO. Converted spontaneously to sinus rhythm, EKG sinus. Troponin peaked, now trending down. Plan: -Heparin drip stopped, transitioned to Eliquis 5 mg BID -Continue Metoprolol XL 25 mg daily -Keep K >4, Mg >2 -Echo ordered -Cardiology consulted ? following #NSTEMI Type II (Demand Ischemia) Likely demand-related. No chest pain, EKG normal. Troponins peaked, now decreasing. Plan: -Stop trending troponins -Continue telemetry -Continue aspirin 81 mg daily -Plavix held for hematuria -Outpatient f/u with Dr. Colon #CAD s/p PCI with 3 stents Stable, Plavix held for hematuria. Plan: -Resume when safe per urology/cardiology -Continue atorvastatin 80 mg daily #ROGELIO secondary to obstructive uropathy s/p nephrostomy tube, improving renal function. Plan: -Strict I/Os -Tamsulosin 0.4 mg daily -Avoid nephrotoxins -Renally dose all meds #Gross Hematuria Expected due to stone/nephrostomy. Plan: -Monitor color and UOP -Urology following #Constipation/Inflammatory Bowel Disease Improved with GoLytely, passing gas, dark brown stool overnight. Plan: -Continue GoLytely PRN -Continue mesalamine -Dr. Ayala (GI) following #Hypocalcemia Persistent mild low calcium. Plan: -Calcium carbonate increased to 600 mg BID #Diabetes Mellitus Type 2 Well-controlled, glucose 130. Plan: -Hold metformin due to borderline CrCl -Sliding scale insulin -Low-carb diet #Hypothyroidism Stable. Plan: -Continue levothyroxine 25 mcg daily #GERD, Gilbert?s Syndrome, HLD No acute issues. Plan: -Continue pantoprazole -Continue atorvastatin 80 mg daily Health Maintenance: * Disposition: MedSurg, full code * DVT prophylaxis: Covered by Eliquis * Diet: Low carb consistent * Code Status: Full ----- Plan discussed with attending physician Dr. Antonio Fitzpatrick MD PGY-1 Internal Medicine Patient seen and examined at bedside, no acute overnight events. I discussed and supervised with the technology risk intern physician who took care of this patient. I personally saw and examined the patient. I agree with most of the assessment and plan. Pending echo for eval of new onset afib. Nephrostomy tube in place, with gross hematuria. Gross hematuria in gamez cath. Heparin drip transitioned to Eliquis. Patient will receive extensive urology workup outpatient. Plan for vioding trial before discharge. Plan of care discussed with attending Dr. Alvarez. Donovan Steiner MD PGY-2
--- NOTE | 2025-04-27 14:58 | PC.SS ---
Rounding note: patient is pending echo and cardiology recommendations.
--- NOTE | 2025-04-27 17:05 | PD.IMPROG ---
Documentation for date of: 04/27/25 Subjective Subjective Interval history: Clinically improving Plavix held because of the hematuria No blood in the stool patient did have a bowel movement Troponin trending downwards Exam Vital Signs Temp Pulse Resp BP Pulse Ox O2 Del Method O2 Flow Rate 97.2 F 83 18 133/70 H 96 Room Air 3 04/27/25 12:00 04/27/25 16:00 04/27/25 12:00 04/27/25 12:00 04/27/25 12:00 04/27/25 12:00 04/26/25 10:20 Objective Labs 04/27/25 04:33 04/27/25 04:33 Labs: Laboratory Results - last 24 hr 04/26/25 04/26/25 04/27/25 18:38 21:09 00:45 WBC RBC Hgb Hct MCV MCH MCHC RDW Std Deviation Plt Count Neut % (Auto) Lymph % (Auto) [place] % (Auto) Eos % (Auto) Baso % (Auto) Neut # (Auto) Lymph # (Auto) [place] # (Auto) Eos # (Auto) Baso # (Auto) Immature Gran # (Auto) Absolute Nucleated RBC Immature Gran % Nucleated RBC % APTT 40.8 H Sodium Potassium Chloride Carbon Dioxide Anion Gap BUN Creatinine Estim Creat Clear Calc eGFR BUN/Creatinine Ratio Glucose Calculated Osmolality Calcium Corrected Calcium Phosphorus Magnesium Total Bilirubin AST ALT Alkaline Phosphatase Troponin I 2.566 H* D 1.493 H* D Total Protein Albumin Globulin Albumin/Globulin Ratio 04/27/25 04/27/25 04:33 13:00 WBC 7.5 RBC 3.41 L Hgb 10.3 L Hct 29.3 L MCV 86 MCH 30.2 MCHC 35.2 RDW Std Deviation 40.7 Plt Count 375 D Neut % (Auto) 74 Lymph % (Auto) 12 [place] % (Auto) 11 Eos % (Auto) 3 Baso % (Auto) 1 Neut # (Auto) 5.5 Lymph # (Auto) 0.9 L [place] # (Auto) 0.8 Eos # (Auto) 0.2 Baso # (Auto) 0.0 Immature Gran # (Auto) 0.02 H Absolute Nucleated RBC 0.00 Immature Gran % 0 Nucleated RBC % 0 APTT 43.7 H 35.9 Sodium 139 Potassium 3.8 Chloride 108 H Carbon Dioxide 23.7 Anion Gap 7 BUN 11 Creatinine 0.9 D Estim Creat Clear Calc 58.4 L eGFR > 60 BUN/Creatinine Ratio 12 Glucose 130 H Calculated Osmolality 278 Calcium 7.9 L Corrected Calcium 8.5 Phosphorus 2.9 Magnesium 2.0 Total Bilirubin 1.0 AST 14 ALT 9 L Alkaline Phosphatase 61 Troponin I Total Protein 5.0 L Albumin 3.2 L Globulin 1.8 L Albumin/Globulin Ratio 1.8 Impressions Impression: Inflammatory bowel disease, ulcerative colitis quiescent Left hydronephrosis requiring nephrostomy Left proximal ureteric stone NSTEMI type II Improving abdominal pain Continue current management Assessment & Plan A&P Narrative # Renal stone disease with left hydronephrosis and left proximal ureteric stones # Nausea vomiting secondary to 1 No evidence of acute exacerbation of the underlying inflammatory bowel disease I agree with the current management We will follow the patient Other medical problems include Diabetes mellitus type 2 Inflammatory bowel disease/UC/Crohn's Coronary artery disease status post PCI Hypothyroidism Time Spent With Patient Time: Total time spent is greater than 50% in coordination of care (as documented) at patient's floor/unit and/or counseling patient:
--- NOTE | 2025-04-27 17:26 | PD.RESPRO ---
Documentation for date of: 04/27/25 Subjective Subjective Interval history: Patient is seen and examined at bedside. No acute overnight events Reported that he is feeling overall well and still complaining of mild pain in the left flank Vitals are stable except for mildly elevated blood pressure and heart rate is around 80. Telemetry showed normal sinus rhythm On physical examination, pansystolic murmur heard at mitral area. Noted concentrated urine without blood, noted bloody drainage in the nephrostomy tube Labs showed hemoglobin of 10.3, noted mild decrease from yesterday likely from the nephrostomy tube drainage Patient is started on Eliquis 5 Mg p.o. twice daily and he is tolerating it well Patient is currently on metoprolol XL 25 Mg, extra dose of 25 Mg is given. Will monitor heart rate and blood pressure If patient tolerates extra dose of metoprolol, increase dose to 50 mg gram from tomorro Maintain potassium greater than 4 and magnesium greater than 2 Exam Vital Signs Temp Pulse Resp BP Pulse Ox O2 Del Method O2 Flow Rate 97.5 F 83 17 134/75 H 95 Room Air 3 04/27/25 16:00 04/27/25 16:00 04/27/25 16:00 04/27/25 16:00 04/27/25 16:04/27/25 16:04/26/25 10:20 Narrative Exam General: Awake. HEENT: Normocephalic, atraumatic, mucous membranes moist. Heart: Regular rate and rhythm, PSM @MA Lungs: Clear to auscultation with no wheezing or crackles. Abdomen: Soft, nondistended, nontender, positive bowel sounds. ?No guarding or rebound tenderness. noted nephrostomy bag Neurologic: Alert and oriented x3, no gross neurological deficit, and patient able to move all 4 extremities. Extremities: No edema. Skin: No rash or ecchymoses. Objective Labs 04/29/25 04:40 04/29/25 04:40 Labs: Laboratory Results - last 24 hr 04/26/25 04/26/25 04/27/25 18:38 21:09 00:45 WBC RBC Hgb Hct MCV MCH MCHC RDW Std Deviation Plt Count Neut % (Auto) Lymph % (Auto) [place] % (Auto) Eos % (Auto) Baso % (Auto) Neut # (Auto) Lymph # (Auto) [place] # (Auto) Eos # (Auto) Baso # (Auto) Immature Gran # (Auto) Absolute Nucleated RBC Immature Gran % Nucleated RBC % APTT 40.8 H Sodium Potassium Chloride Carbon Dioxide Anion Gap BUN Creatinine Estim Creat Clear Calc eGFR BUN/Creatinine Ratio Glucose Calculated Osmolality Calcium Corrected Calcium Phosphorus Magnesium Total Bilirubin AST ALT Alkaline Phosphatase Troponin I 2.566 H* D 1.493 H* D Total Protein Albumin Globulin Albumin/Globulin Ratio 04/27/25 04/27/25 04:33 13:00 WBC 7.5 RBC 3.41 L Hgb 10.3 L Hct 29.3 L MCV 86 MCH 30.2 MCHC 35.2 RDW Std Deviation 40.7 Plt Count 375 D Neut % (Auto) 74 Lymph % (Auto) 12 [place] % (Auto) 11 Eos % (Auto) 3 Baso % (Auto) 1 Neut # (Auto) 5.5 Lymph # (Auto) 0.9 L [place] # (Auto) 0.8 Eos # (Auto) 0.2 Baso # (Auto) 0.0 Immature Gran # (Auto) 0.02 H Absolute Nucleated RBC 0.00 Immature Gran % 0 Nucleated RBC % 0 APTT 43.7 H 35.9 Sodium 139 Potassium 3.8 Chloride 108 H Carbon Dioxide 23.7 Anion Gap 7 BUN 11 Creatinine 0.9 D Estim Creat Clear Calc 58.4 L eGFR > 60 BUN/Creatinine Ratio 12 Glucose 130 H Calculated Osmolality 278 Calcium 7.9 L Corrected Calcium 8.5 Phosphorus 2.9 Magnesium 2.0 Total Bilirubin 1.0 AST 14 ALT 9 L Alkaline Phosphatase 61 Troponin I Total Protein 5.0 L Albumin 3.2 L Globulin 1.8 L Albumin/Globulin Ratio 1.8 Quality Measures Quality Measures VTE prophylaxis Advance care planning discussed with:: patient Assessment & Plan Assessment Current Active Medications: Generic Name Dose Route Start Last Admin Trade Name Freq PRN Reason Stop Dose Admin Acetaminophen 650 mg 04/22/25 13:04 04/26/25 23:38 Acetaminophen 325 Mg Tablet PO 05/22/25 13:03 650 mg Q6H PRN Administration Fever >100.3 or pain 1-4 Amlodipine Besylate 2.5 mg 04/23/25 09:00 04/27/25 09:08 Amlodipine Besylate 2.5 Mg Tablet PO 05/23/25 08:59 2.5 mg QDAY PAULA Administration Apixaban 5 mg 04/27/25 09:00 04/27/25 09:19 Apixaban 2.5 Mg Tablet PO 05/27/25 08:59 5 mg BID PAULA Administration Atorvastatin Calcium 80 mg 04/26/25 12:15 04/27/25 09:06 Atorvastatin Calcium 20 Mg Tablet PO 05/26/25 12:14 80 mg QDAY PAULA Administration Benzonatate 200 mg 04/24/25 14:26 04/27/25 09:08 Benzonatate 100 Mg Capsule PO 05/24/25 14:25 200 mg Q8HR PRN Administration COUGH Protocol Calcium Carbonate 600 mg 04/27/25 09:00 04/27/25 09:08 Calcium Carbonate 600 Mg Tablet PO 05/27/25 08:59 600 mg BID PAULA Administration Mesalamine [Lialda] 0 ea 04/25/25 09:00 04/27/25 09:10 1.2 Gram Tablet, PO 05/25/25 08:59 2 tablet Delayed Release BID PAULA Administration Dextrose 25 ml 04/22/25 13:17 Dextrose 50%-Water Inj 50 Ml Syringe IV 05/22/25 13:16 Q15MIN PRN BG 50-70 responsive npo pt Dextrose 50 ml 04/22/25 13:17 Dextrose 50%-Water Inj 50 Ml Syringe IV 05/22/25 13:16 Q15MIN PRN BG <50 OR BG <70 & pt unresponsive Doxycycline Hyclate 100 mg 04/24/25 21:00 04/27/25 09:07 Doxycycline 100 Mg Tablet PO 05/01/25 20:59 100 mg BID PAULA Administration Glucagon 1 mg 04/22/25 13:17 Glucagon Inj 1 Mg Vial IM Q15MIN PRN BG <70, and no IV access Insulin Human Lispro 0 unit 04/22/25 17:00 04/27/25 17:03 Insulin Lispro (Admelog) 1 Unit/0.01 Ml Unit SC 05/22/25 16:59 1 unit AC PAULA Administration Protocol Levothyroxine Sodium 25 mcg 04/23/25 08:00 04/27/25 06:12 Levothyroxine Sodium 25 Mcg Tablet PO 05/23/25 07:59 25 mcg ACBR PAULA Administration Metoprolol Succinate 25 mg 04/26/25 12:15 04/27/25 09:09 Metoprolol Succinate Xl 25 Mg Tabcr PO 05/26/25 12:14 25 mg QDAY PAULA Administration Ondansetron HCl 4 mg 04/22/25 13:04 Ondansetron Inj 2 Mg/Ml Inj 2 Ml IVP 05/22/25 13:03 Q6H PRN NAUSEA OR VOMITING Protocol Tamsulosin HCl 0.4 mg 04/22/25 13:15 04/27/25 09:07 Tamsulosin Hcl 0.4 Mg Capsule PO 05/22/25 13:14 0.4 mg DAILY PAULA Administration Temazepam 15 mg 04/23/25 13:57 04/26/25 23:38 Temazepam 15 Mg Capsule PO 04/28/25 13:56 15 mg QDAY PRN Administration Anxiety Plan Patient is a 74 year old male with a past medical history of CAD s/p PCI 3 stents (2016 & 2018) on Plavix, Diabetes Mellitus Type 2 non- insulin dependent, hypothyroidism, hyperlipidemia, history of Infalmmatory bowel disease, and history of Gilbert's syndrome, and GERD disease. Cardiology following given new onset of afib w/ rvr now rate controlled after amio completed and transitioned to oral Metroprolol XL. #New Onset of Atrial Fibrillation w/ RVR --> Reverted to Normal sinus rhythm Patient presented with new onset of atrial fibrillation with rvr as noted on EKG overnight. Patient denied chest pain or shortness of breath. Positive for palpitaitons. Patient started on Amiodarone drip. Atrial fibrillation, likely in the setting of pneumonia and hydronephrosis increased cardiac strain. EKG: Atrial fibrillation. TSH 1.67 Lipid Panel: Triglycerides 172, Cholesterol 101, LDL 31, HDL 36 CHADsVAS score 4 points HAS BLED 2 points Plan -Metoprolol XL 25 mg Qday, extra dose of met xl 25mg on 04/27 - will increase the dose of met xl 50mg tomorrow if patient tolerates well -Keep K >4 and Mg >2 -Heparin drip discontinued, transitioned patient to Eliquis 5 mg BID -Echo pending #NSTEMI Type II, likely demand ischemia Patient has a past medical history of CAD and Diabetes Mellitus which puts patient at increased risk of cardiac events. Patient denied chest pain and EKG unremarkable. Troponin (04/26/2025): 3.291, 3.578, 2.566 Plan -Stop trending troponin as peaked -monitor Telebox for any changes -Follow up with Dr. Colon as outpatient. #CAD s/p PCI 3 stents #Hyperlipidemia Patient follows Dr. Colon and takes clopidogrel #ROGELIO, likely obstructive , resolved #Left hydronephrosis s/p L. nephrostomy tube Patient presented with hydronephrosis of left flank, secondary to urterolithiasis. On admission, Cr 1.5 which >0.3 baseline of 1.0. BUN/CR 13. Decreased urine output. Abdomen/Pelvis: mild to moderate left hydronephrosis secondary to 8 mm proximal left ureteral calculus. Plan -Underwent nephrostomy tube placement on 04/26 -Strict in and outs -Tamsulosin -avoid nephrotoxins -renally dose mediation #New Hypertension No previous hypertensive medicaiton listed as part of home medication list. Patient is in pain secondary to nephrostomy, likely elevated BP to pain Plan -pain management -amlodipine 2.5 mg qday #Diabetes Mellitus Type II, non insulin dependent Home medication of metformin, caution with CrCl currently 36 vs nearing 30 CrCl, consider d/c medication. A1c 5.5 Plan -Sliding Scale #Hypothyroidism TSH within normal limits Plan -Resume Levothyroxine 25 mcgt PO ACBR -Consider Resuming Plavix when after nephrostomy tube placement, #Constipation #Inflammatory Bowel Disease (UC ? Chrohns?) GI Consulted as patient has a past medical history of inflammatory bowel disease and presented with abdominal distention and constipation. Improved since admission as patient reporte bowel movement. Plan -home medication Mesalamine -Golylte -Dr. Ayala Following #History of GERD #[place] Disease Patient plan of care was discussed with Streetcar Operator Dr. Darci Silva, PGY2 Attending Provider Attestation/Addendum I have personally seen and examined the patient separately on the above date of service and discussed the plan of care with the resident. I reviewed the resident Dr. Nabil Perez consultation progress note and agree with the resident findings and plan in the note above and have also edited the documentation to reflect my findings and plan. Que Bejarano M.D. Interventional Cardiology
[2025-04-28] VITALS (9 sets, daily range): BP systolic 125–153; BP diastolic 56–75; PULSE 62–90; RESP 16–19; TEMP 36.1–36.5; O2SAT 94–99
[2025-04-28] MEDS: ACETAMINOPHEN 325 MG TABLET 650 MG PO (00:20)
[2025-04-28] MEDS: TEMAZEPAM 15 MG CAPSULE PO ×2 (00:21→23:49)
[2025-04-28] MEDS: LEVOTHYROXINE SODIUM 25 MCG TABLET PO (05:41)
[2025-04-28 06:50] LABS: Basophils # (Auto) 0.1 Thou/mm3 (0.0-0.2); Basophils % (Auto) 1 % (0-2.5); Eosinophils # (Auto) 0.2 Thou/mm3 (0.0-0.5); Eosinophils % (Auto) 3 % (0-10); Hematocrit 30.3 % (41.0-53.0); Hemoglobin 10.8 g/dL (13.5-16.0); Immature Granulocytes Auto 0.02 Thou/mm3 (0.00-0.00); Lymphocytes # (Auto) 1.0 Thou/mm3 (1.0-4.8); Lymphocytes % (Auto) 16 % (10-50); Mean Corpuscular HGB Conc 35.6 g/dl (31.0-37.0); Mean Corpuscular Hemoglobin 30.4 pg (25.0-35.0); Mean Corpuscular Volume 85 fL (80-100); Monocytes # (Auto) 1.0 Thou/mm3 (0.0-0.8); Monocytes % (Auto) 17 % (0-12); Neutrophils # (Auto) 3.7 Thou/mm3 (1.8-7.7); Neutrophils % (Auto) 63 % (37-80); Nucleated Red Blood Cell # 0.00 Thou/mm3 (0.00-0.00); Nucleated Red Blood Cell % 0 /100 WBC (0); Platelet Count 354 Thou/mm3 (140-440); RDW Standard Deviation 40.1 fL (35.1-43.9); Red Blood Count 3.55 Miln/mm3 (4.50-5.90); White Blood Count 6.0 Thou/mm3 (3.8-10.6)
[2025-04-28 07:13] LABS: INR 1.0 (0.9-1.3); Partial Thromboplastin Time 33.9 Seconds (22.0-36.0); Prothrombin Time 11.4 Seconds (9.0-12.2)
[2025-04-28 07:36] LABS: Alanine Aminotransferase 15 U/L (10-49); Albumin, Serum 3.4 gm/dL (3.4-4.8); Albumin/Globulin Ratio 1.9 (1.2-2.2); Alkaline Phosphatase 66 U/L (46-116); Anion Gap 5 (7-16); Aspartate Amino Transferase 18 U/L (0-34); BUN/Creatinine Ratio 11 Ratio (12-20); Bilirubin,Total 0.9 mg/dL (0.3-1.2); Blood Urea Nitrogen 10 mg/dL (9-23); Calcium 8.4 mg/dL (8.3-10.6); Calcium (Corrected) 8.9 mg/dL (8.5-10.1); Carbon Dioxide 26.7 mMol/L (20.0-31.0); Chloride 108 mMol/L (98-107); Creatinine (Component) 0.9 mg/dL (0.6-1.3); Estimated Creatinine Clearance 58.4 mL/min (>60); Globulin 1.8 gm/dL (2.3-3.5); Glucose 144 mg/dL (74-106); Magnesium 1.8 mg/dL (1.6-2.6); Osmolality,Calculated 281 (275-295); Phosphorous 3.4 mg/dL (2.4-5.1); Potassium 4.5 mMol/L (3.4-5.1); Sodium 140 mMol/L (136-145); Total Protein 5.2 gm/dL (5.7-8.2); eGFR > 60 See Note
[2025-04-28] MEDS: ATORVASTATIN CALCIUM 20 MG TABLET 80 MG PO (08:43)
[2025-04-28] MEDS: APIXABAN 2.5 MG TABLET 5 MG PO ×2 (08:43→21:10)
[2025-04-28] MEDS: TAMSULOSIN HCL 0.4 MG CAPSULE PO (08:44)
[2025-04-28] MEDS: CALCIUM CARBONATE 600 MG TABLET PO ×2 (08:44→21:10)
[2025-04-28] MEDS: DOXYCYCLINE 100 MG TABLET PO (08:44)
[2025-04-28] MEDS: METOPROLOL SUCCINATE XL 25 MG TABCR PO (08:44)
[2025-04-28] MEDS: Mesalamine [Lialda] 1.2 gram Tablet,Delayed Release PO ×2 (08:45→21:11)
[2025-04-28] MEDS: INSULIN LISPRO (AdmeLOG) 1 UNIT/0.01 ML UNIT SC ×2 (08:46→12:09)
[2025-04-28] MEDS: Magnesium Sulfate 2 GM Ivpb 2 GM/50 ML BAG IV (09:03)
--- NOTE | 2025-04-28 10:41 | PC.SS ---
Addendum entered by JASS Goldstein 04/28/25 16:22: Rounding note: pending patient to void after gamez removal. Original Note: SS follow up: patient contacted [facility] to discuss home health services. Patient has denied the service at this time.
--- NOTE | 2025-04-28 12:29 | PD.IMPROG ---
Documentation for date of: 04/28/25 Subjective Subjective Interval history: Patient evaluated Ramesh catheter out after successful voiding trial Seen by cardiology Off the Eliquis and Plavix will be on board along with metoprolol Exam Vital Signs Temp Pulse Resp BP Pulse Ox O2 Del Method O2 Flow Rate 97.6 F 81 19 140/68 H 96 Room Air 3 04/28/25 08:00 04/28/25 12:29 04/28/25 08:00 04/28/25 08:44 04/28/25 08:00 04/28/25 08:00 04/26/25 10:20 Objective Labs 04/28/25 06:38 04/28/25 06:38 Labs: Laboratory Results - last 24 hr 04/27/25 04/28/25 13:00 06:38 WBC 6.0 RBC 3.55 L Hgb 10.8 L Hct 30.3 L MCV 85 MCH 30.4 MCHC 35.6 RDW Std Deviation 40.1 Plt Count 354 Neut % (Auto) 63 Lymph % (Auto) 16 [place] % (Auto) 17 H Eos % (Auto) 3 Baso % (Auto) 1 Neut # (Auto) 3.7 Lymph # (Auto) 1.0 [place] # (Auto) 1.0 H Eos # (Auto) 0.2 Baso # (Auto) 0.1 Immature Gran # (Auto) 0.02 H Absolute Nucleated RBC 0.00 Immature Gran % 0 Nucleated RBC % 0 PT 11.4 INR 1.0 APTT 35.9 33.9 Sodium 140 Potassium 4.5 D Chloride 108 H Carbon Dioxide 26.7 Anion Gap 5 L BUN 10 Creatinine 0.9 Estim Creat Clear Calc 58.4 L eGFR > 60 BUN/Creatinine Ratio 11 L Glucose 144 H Calculated Osmolality 281 Calcium 8.4 Corrected Calcium 8.9 Phosphorus 3.4 Magnesium 1.8 Total Bilirubin 0.9 AST 18 ALT 15 Alkaline Phosphatase 66 Total Protein 5.2 L Albumin 3.4 Globulin 1.8 L Albumin/Globulin Ratio 1.9 Impressions Impression: Inflammatory bowel disease/ulcerative colitis Hematuria secondary to renal stone disease Hydronephrosis status post nephrostomy placement New onset atrial fibrillation Continue current management Assessment & Plan A&P Narrative # Renal stone disease with left hydronephrosis and left proximal ureteric stones # Nausea vomiting secondary to 1 No evidence of acute exacerbation of the underlying inflammatory bowel disease I agree with the current management We will follow the patient Other medical problems include Diabetes mellitus type 2 Inflammatory bowel disease/UC/Crohn's Coronary artery disease status post PCI Hypothyroidism Time Spent With Patient Time: Total time spent is greater than 50% in coordination of care (as documented) at patient's floor/unit and/or counseling patient:
--- NOTE | 2025-04-28 15:08 | PD.RESPRO ---
Documentation for date of: 04/28/25 Subjective Subjective Interval history: Patient seen at bedside. Today patient denies chest pain, shortness of breath, palpitations,dizziness, and no nausea/vomiting. He is currently hemodynamically stable and has appropriate 02 saturation on room air. Discussed to continue plavix and will need to follow-up with cardiology in 1 week once medically cleared for discharge. Exam Vital Signs Temp Pulse Resp BP Pulse Ox O2 Del Method O2 Flow Rate 97.6 F 81 18 132/59 H 94 L Room Air 3 04/28/25 12:00 04/28/25 12:29 04/28/25 12:00 04/28/25 12:04/28/25 12:04/28/25 12:04/26/25 10:20 Narrative Exam General: Awake. HEENT: Normocephalic, atraumatic, mucous membranes moist. Heart: Regular rate and rhythm, PSM @MA Lungs: Clear to auscultation with no wheezing or crackles. Abdomen: Soft, nondistended, nontender, positive bowel sounds. ?No guarding or rebound tenderness. noted nephrostomy bag Neurologic: Alert and oriented x3, no gross neurological deficit, and patient able to move all 4 extremities. Extremities: No edema. Skin: No rash or ecchymoses. Objective Labs 04/28/25 06:38 04/28/25 06:38 Labs: Laboratory Results - last 24 hr 04/28/25 06:38 WBC 6.0 RBC 3.55 L Hgb 10.8 L Hct 30.3 L MCV 85 MCH 30.4 MCHC 35.6 RDW Std Deviation 40.1 Plt Count 354 Neut % (Auto) 63 Lymph % (Auto) 16 [place] % (Auto) 17 H Eos % (Auto) 3 Baso % (Auto) 1 Neut # (Auto) 3.7 Lymph # (Auto) 1.0 [place] # (Auto) 1.0 H Eos # (Auto) 0.2 Baso # (Auto) 0.1 Immature Gran # (Auto) 0.02 H Absolute Nucleated RBC 0.00 Immature Gran % 0 Nucleated RBC % 0 PT 11.4 INR 1.0 APTT 33.9 Sodium 140 Potassium 4.5 D Chloride 108 H Carbon Dioxide 26.7 Anion Gap 5 L BUN 10 Creatinine 0.9 Estim Creat Clear Calc 58.4 L eGFR > 60 BUN/Creatinine Ratio 11 L Glucose 144 H Calculated Osmolality 281 Calcium 8.4 Corrected Calcium 8.9 Phosphorus 3.4 Magnesium 1.8 Total Bilirubin 0.9 AST 18 ALT 15 Alkaline Phosphatase 66 Total Protein 5.2 L Albumin 3.4 Globulin 1.8 L Albumin/Globulin Ratio 1.9 Quality Measures Quality Measures VTE prophylaxis Advance care planning discussed with:: patient Assessment & Plan Assessment Current Active Medications: Generic Name Dose Route Start Last Admin Trade Name Freq PRN Reason Stop Dose Admin Acetaminophen 650 mg 04/22/25 13:04 04/28/25 00:20 Acetaminophen 325 Mg Tablet PO 05/22/25 13:03 650 mg Q6H PRN Administration Fever >100.3 or pain 1-4 Amlodipine Besylate 2.5 mg 04/23/25 09:00 04/28/25 08:44 Amlodipine Besylate 2.5 Mg Tablet PO 05/23/25 08:59 2.5 mg QDAY PAULA Administration Apixaban 5 mg 04/27/25 09:00 04/28/25 08:43 Apixaban 2.5 Mg Tablet PO 05/27/25 08:59 5 mg BID PAULA Administration Atorvastatin Calcium 80 mg 04/26/25 12:15 04/28/25 08:43 Atorvastatin Calcium 20 Mg Tablet PO 05/26/25 12:14 80 mg QDAY PAULA Administration Benzonatate 200 mg 04/24/25 14:26 04/27/25 09:08 Benzonatate 100 Mg Capsule PO 05/24/25 14:25 200 mg Q8HR PRN Administration COUGH Protocol Calcium Carbonate 600 mg 04/27/25 09:00 04/28/25 08:44 Calcium Carbonate 600 Mg Tablet PO 05/27/25 08:59 600 mg BID PAULA Administration Mesalamine [Lialda] 0 ea 04/25/25 09:00 04/28/25 08:45 1.2 Gram Tablet, PO 05/25/25 08:59 2 tablet Delayed Release BID PAULA Administration Dextrose 25 ml 04/22/25 13:17 Dextrose 50%-Water Inj 50 Ml Syringe IV 05/22/25 13:16 Q15MIN PRN BG 50-70 responsive npo pt Dextrose 50 ml 04/22/25 13:17 Dextrose 50%-Water Inj 50 Ml Syringe IV 05/22/25 13:16 Q15MIN PRN BG <50 OR BG <70 & pt unresponsive Doxycycline Hyclate 100 mg 04/24/25 21:00 04/28/25 08:44 Doxycycline 100 Mg Tablet PO 05/01/25 20:59 100 mg BID PAULA Administration Glucagon 1 mg 04/22/25 13:17 Glucagon Inj 1 Mg Vial IM Q15MIN PRN BG <70, and no IV access Insulin Human Lispro 0 unit 04/22/25 17:00 04/28/25 12:09 Insulin Lispro (Admelog) 1 Unit/0.01 Ml Unit SC 05/22/25 16:59 2 unit AC PAULA Administration Protocol Levothyroxine Sodium 25 mcg 04/23/25 08:00 04/28/25 05:41 Levothyroxine Sodium 25 Mcg Tablet PO 05/23/25 07:59 25 mcg ACBR PAULA Administration Metoprolol Succinate 25 mg 04/26/25 12:15 04/28/25 08:44 Metoprolol Succinate Xl 25 Mg Tabcr PO 05/26/25 12:14 25 mg QDAY PAULA Administration Ondansetron HCl 4 mg 04/22/25 13:04 Ondansetron Inj 2 Mg/Ml Inj 2 Ml IVP 05/22/25 13:03 Q6H PRN NAUSEA OR VOMITING Protocol Tamsulosin HCl 0.4 mg 04/22/25 13:15 04/28/25 08:44 Tamsulosin Hcl 0.4 Mg Capsule PO 05/22/25 13:14 0.4 mg DAILY PAULA Administration Plan Patient is a 74 year old male with a past medical history of CAD s/p PCI 3 stents (2016 & 2019) on Plavix, Diabetes Mellitus Type 2 non- insulin dependent, hypothyroidism, hyperlipidemia, history of Infalmmatory bowel disease, and history of Gilbert's syndrome, and GERD disease. Cardiology following given new onset of afib w/ rvr now rate controlled after amio completed and transitioned to oral Metroprolol XL. #New Onset of Atrial Fibrillation w/ RVR --> Converted Back Normal sinus rhythm Patient presented with new onset of atrial fibrillation with rvr as noted on EKG overnight. Patient denied chest pain or shortness of breath. Positive for palpitations. Patient started on Amiodarone drip. Atrial fibrillation, likely in the setting of pneumonia and hydronephrosis increased cardiac strain. EKG: Atrial fibrillation. TSH 1.67 CHADsVAS score 4 points HAS BLED 2 points Plan -Plan:Continue Metoprolol XL 50 mg Qday. Recommend discontinuing eliquis 2/2 to bleeding risk while resuming home plavix and patient converted back to sinus rhythm. Outpatient follow-up with cardiology further monitoring and management. #NSTEMI Type II, likely demand ischemia #CAD s/p PCI 3 stents #Hyperlipidemia Patient has a past medical history of CAD and Diabetes Mellitus which puts patient at increased risk of cardiac events. Elevated troponin most likely secondary to demand ischemia Patient denied chest pain and EKG unremarkable. Lipid Panel: Triglycerides 172, Cholesterol 101, LDL 31, HDL 36 Troponin (04/26/2025): 3.291, 3.578, 2.566 Plan -Stop trending troponin as peaked -monitor Telebox for any changes -Follow up with Dr. Colon as outpatient. - Plan: Resume home plavix and atorvastatin 80mg PO QD. F/U outpatient with cardiology #ROGELIO, likely obstructive , resolved #Left hydronephrosis s/p L. nephrostomy tube Patient presented with hydronephrosis of left flank, secondary to urterolithiasis. On admission, Cr 1.5 which >0.3 baseline of 1.0. BUN/CR 13. Decreased urine output. Abdomen/Pelvis: mild to moderate left hydronephrosis secondary to 8 mm proximal left ureteral calculus. Plan -Underwent nephrostomy tube placement on 04/26 -Strict in and outs -Tamsulosin -avoid nephrotoxins -renally dose mediation #Hypertension No previous hypertensive medication listed as part of home medication list. Patient is in pain secondary to nephrostomy, BP likely elevated due to pain Plan -pain management -Continue amlodipine 2.5 mg qday and metoprolol #Diabetes Mellitus Type II, non insulin dependent Home medication of metformin, caution with CrCl currently 36 vs nearing 30 CrCl, consider d/c medication. A1c 5.5 Plan -Management per primary team #Hypothyroidism TSH within normal limits Plan -Continue Levothyroxine 25 mcgt PO ACBR #Constipation #Inflammatory Bowel Disease (UC ? Chrohns?) #History of GERD #[place] Disease -management as per primary hospitalist team Assessment and plan discussed with my attending physician Dr. Isaiah Guo (PGY-2)- Internal medicine resident
--- NOTE | 2025-04-28 18:07 | PC.NURSE ---
Per. Dr. Underwood patient ok to discharge; ok for ECHO not to be completed.
--- NOTE | 2025-04-28 18:15 | ESPR_ITS ---
<Statement entered by Kike Alvarez MD - 04/30/25 09:35> I have discussed and was present for the essential components of the history, physical examination, diagnosis, and treatment plan with the resident. I agree with the patient's care as documented by the resident and amended herein by me. Kike Alvarez MD FACP. Documentation for date of: 04/28/25 Subjective Subjective Interval history: Patient seen and examined at bedside today. He reports feeling well, denies chest pain, palpitations, dizziness, shortness of breath, nausea, vomiting, or abdominal pain. He is ambulating in his room without difficulty. He has mild left flank soreness but no new urinary discomfort. Ramesh catheter was removed and he successfully completed a void trial without issues. Patient was seen by Dr. Colon from Cardiology who recommended stopping Eliquis and resuming Plavix with continued metoprolol increased to 50?mg daily. Patient and spouse updated on discharge plan for tomorrow and agree. Pertinent Labs: Stable, no significant changes. Exam Vital Signs Temp Pulse Resp BP Pulse Ox O2 Del Method O2 Flow Rate 97.7 F 90 19 141/59 H 99 Room Air 3 04/28/25 16:00 04/28/25 16:30 04/28/25 16:00 04/28/25 16:00 04/28/25 16:04/28/25 16:00 04/26/25 10:20 Narrative Exam Physical Exam: Gen: Elderly male, alert, mild distress, cooperative. CV: RRR, normal S1/S2, no murmurs. Resp: Clear to ausc, mild cough, no distress. Abd: Soft, nontender, mild distention, normal BS. : Ramesh in place with reddish urine, nephrostomy draining bright red but stable. Neuro: A&O x3, no focal deficits. Skin: Warm, dry, no rashes, no bruising. Objective Labs 04/28/25 06:38 04/28/25 06:38 Labs: Laboratory Results - last 24 hr 04/28/25 06:38 WBC 6.0 RBC 3.55 L Hgb 10.8 L Hct 30.3 L MCV 85 MCH 30.4 MCHC 35.6 RDW Std Deviation 40.1 Plt Count 354 Neut % (Auto) 63 Lymph % (Auto) 16 [place] % (Auto) 17 H Eos % (Auto) 3 Baso % (Auto) 1 Neut # (Auto) 3.7 Lymph # (Auto) 1.0 [place] # (Auto) 1.0 H Eos # (Auto) 0.2 Baso # (Auto) 0.1 Immature Gran # (Auto) 0.02 H Absolute Nucleated RBC 0.00 Immature Gran % 0 Nucleated RBC % 0 PT 11.4 INR 1.0 APTT 33.9 Sodium 140 Potassium 4.5 D Chloride 108 H Carbon Dioxide 26.7 Anion Gap 5 L BUN 10 Creatinine 0.9 Estim Creat Clear Calc 58.4 L eGFR > 60 BUN/Creatinine Ratio 11 L Glucose 144 H Calculated Osmolality 281 Calcium 8.4 Corrected Calcium 8.9 Phosphorus 3.4 Magnesium 1.8 Total Bilirubin 0.9 AST 18 ALT 15 Alkaline Phosphatase 66 Total Protein 5.2 L Albumin 3.4 Globulin 1.8 L Albumin/Globulin Ratio 1.9 Quality Measures Quality Measures VTE prophylaxis Advance care planning discussed with:: patient and spouse Assessment & Plan Assessment Current Active Medications: Generic Name Dose Route Start Last Admin Trade Name Freq PRN Reason Stop Dose Admin Acetaminophen 650 mg 04/22/25 13:04 04/28/25 00:20 Acetaminophen 325 Mg Tablet PO 05/22/25 13:03 650 mg Q6H PRN Administration Fever >100.3 or pain 1-4 Amlodipine Besylate 2.5 mg 04/23/25 09:00 04/28/25 08:44 Amlodipine Besylate 2.5 Mg Tablet PO 05/23/25 08:59 2.5 mg QDAY PAULA Administration Apixaban 5 mg 04/27/25 09:00 04/28/25 08:43 Apixaban 2.5 Mg Tablet PO 05/27/25 08:59 5 mg BID PAULA Administration Atorvastatin Calcium 80 mg 04/26/25 12:15 04/28/25 08:43 Atorvastatin Calcium 20 Mg Tablet PO 05/26/25 12:14 80 mg QDAY PAULA Administration Benzonatate 200 mg 04/24/25 14:26 04/27/25 09:08 Benzonatate 100 Mg Capsule PO 05/24/25 14:25 200 mg Q8HR PRN Administration COUGH Protocol Calcium Carbonate 600 mg 04/27/25 09:00 04/28/25 08:44 Calcium Carbonate 600 Mg Tablet PO 05/27/25 08:59 600 mg BID PAULA Administration Mesalamine [Lialda] 0 ea 04/25/25 09:00 04/28/25 08:45 1.2 Gram Tablet, PO 05/25/25 08:59 2 tablet Delayed Release BID PAULA Administration Dextrose 25 ml 04/22/25 13:17 Dextrose 50%-Water Inj 50 Ml Syringe IV 05/22/25 13:16 Q15MIN PRN BG 50-70 responsive npo pt Dextrose 50 ml 04/22/25 13:17 Dextrose 50%-Water Inj 50 Ml Syringe IV 05/22/25 13:16 Q15MIN PRN BG <50 OR BG <70 & pt unresponsive Glucagon 1 mg 04/22/25 13:17 Glucagon Inj 1 Mg Vial IM Q15MIN PRN BG <70, and no IV access Insulin Human Lispro 0 unit 04/22/25 17:00 04/28/25 17:38 Insulin Lispro (Admelog) 1 Unit/0.01 Ml Unit SC 05/22/25 16:59 Not Given AC PAULA Protocol Levothyroxine Sodium 25 mcg 04/23/25 08:00 04/28/25 05:41 Levothyroxine Sodium 25 Mcg Tablet PO 05/23/25 07:59 25 mcg ACBR PAULA Administration Metoprolol Succinate 25 mg 04/26/25 12:15 04/28/25 08:44 Metoprolol Succinate Xl 25 Mg Tabcr PO 05/26/25 12:14 25 mg QDAY PAULA Administration Ondansetron HCl 4 mg 04/22/25 13:04 Ondansetron Inj 2 Mg/Ml Inj 2 Ml IVP 05/22/25 13:03 Q6H PRN NAUSEA OR VOMITING Protocol Tamsulosin HCl 0.4 mg 04/22/25 13:15 04/28/25 08:44 Tamsulosin Hcl 0.4 Mg Capsule PO 05/22/25 13:14 0.4 mg DAILY PAULA Administration Plan Plan #Paroxysmal Atrial Fibrillation with RVR Converted spontaneously to sinus rhythm, no recurrence. Cardiology (Dr. Colon) evaluated, recommends stopping Eliquis and continuing Plavix and metoprolol. Plan: -Stop Eliquis -Resume Plavix 75 mg daily -Increase Metoprolol XL to 50 mg daily -Echo follow-up outpatient if pending #NSTEMI Type II (Demand Ischemia) Likely demand-related. No chest pain, EKG normal. Troponins peaked, no new ischemic symptoms Plan: -Continue aspirin 81 mg daily -Resume Plavix per Cardiology -Outpatient f/u with Dr. Colon #CAD s/p PCI with 3 stents Stable, Plan: -Continue atorvastatin 80 mg daily #ROGELIO secondary to obstructive uropathy s/p left nephrostomy, renal function back to baseline. Plan: -Nephrostomy care instructions at discharge -Follow up with Urology outpatient #Gross Hematuria Expected due to stone/nephrostomy. Plan: -Monitor color and UOP -Urology following #Constipation/Inflammatory Bowel Disease Improved with GoLytely, passing gas, dark brown stool overnight. Plan: -Continue GoLytely PRN -Continue mesalamine -Dr. Ayala (GI) following #Hypocalcemia Persistent mild low calcium. Plan: -Calcium carbonate increased to 600 mg BID #Diabetes Mellitus Type 2 Well-controlled, glucose 130. Plan: -Hold metformin due to borderline CrCl -Sliding scale insulin -Low-carb diet #Hypothyroidism Stable. Plan: -Continue levothyroxine 25 mcg daily #GERD, Gilbert?s Syndrome, HLD No acute issues. Plan: -Continue pantoprazole Health Maintenance: * Disposition: MedSurg, full code * DVT prophylaxis:- * Diet: Low carb consistent * Code Status: Full ----- Plan discussed with attending physician Dr. Antonio Fitzpatrick MD PGY-1 Internal Medicine Patient seen and examined at bedside, no acute overnight events. I discussed and supervised with the rn intern physician who took care of this patient. I personally saw and examined the patient. I agree with most of the assessment and plan. Ramesh cath removed, patient able to void well. Cariology recommendations received. Plan to DC patient tomorrow if tolerates cardiac meds well. Plan of care discussed with attending Dr. Alvarez. Donovan Steiner MD PGY-2
[2025-04-29] VITALS (8 sets, daily range): BP systolic 134–166; BP diastolic 62–82; PULSE 69–82; RESP 15–18; TEMP 36.1–37.2; O2SAT 98–99
[2025-04-29] MEDS: LEVOTHYROXINE SODIUM 25 MCG TABLET PO (05:38)
[2025-04-29 06:20] LABS: Basophils # (Auto) 0.0 Thou/mm3 (0.0-0.2); Basophils % (Auto) 1 % (0-2.5); Eosinophils # (Auto) 0.2 Thou/mm3 (0.0-0.5); Eosinophils % (Auto) 3 % (0-10); Hematocrit 31.5 % (41.0-53.0); Hemoglobin 11.2 g/dL (13.5-16.0); Immature Granulocytes Auto 0.07 Thou/mm3 (0.00-0.00); Lymphocytes # (Auto) 1.2 Thou/mm3 (1.0-4.8); Lymphocytes % (Auto) 19 % (10-50); Mean Corpuscular HGB Conc 35.6 g/dl (31.0-37.0); Mean Corpuscular Hemoglobin 30.2 pg (25.0-35.0); Mean Corpuscular Volume 85 fL (80-100); Monocytes # (Auto) 1.0 Thou/mm3 (0.0-0.8); Monocytes % (Auto) 16 % (0-12); Neutrophils # (Auto) 3.7 Thou/mm3 (1.8-7.7); Neutrophils % (Auto) 60 % (37-80); Nucleated Red Blood Cell # 0.00 Thou/mm3 (0.00-0.00); Nucleated Red Blood Cell % 0 /100 WBC (0); Platelet Count 378 Thou/mm3 (140-440); RDW Standard Deviation 38.5 fL (35.1-43.9); Red Blood Count 3.71 Miln/mm3 (4.50-5.90); White Blood Count 6.2 Thou/mm3 (3.8-10.6)
[2025-04-29 06:54] LABS: Alanine Aminotransferase 22 U/L (10-49); Albumin, Serum 3.4 gm/dL (3.4-4.8); Albumin/Globulin Ratio 1.8 (1.2-2.2); Alkaline Phosphatase 70 U/L (46-116); Anion Gap 6 (7-16); Aspartate Amino Transferase 25 U/L (0-34); BUN/Creatinine Ratio 13 Ratio (12-20); Bilirubin,Total 0.9 mg/dL (0.3-1.2); Blood Urea Nitrogen 10 mg/dL (9-23); Calcium 8.2 mg/dL (8.3-10.6); Calcium (Corrected) 8.7 mg/dL (8.5-10.1); Carbon Dioxide 25.1 mMol/L (20.0-31.0); Chloride 107 mMol/L (98-107); Creatinine (Component) 0.8 mg/dL (0.6-1.3); Estimated Creatinine Clearance 65.7 mL/min (>60); Globulin 1.9 gm/dL (2.3-3.5); Glucose 156 mg/dL (74-106); Magnesium 2.0 mg/dL (1.6-2.6); Osmolality,Calculated 277 (275-295); Phosphorous 3.8 mg/dL (2.4-5.1); Potassium 3.8 mMol/L (3.4-5.1); Sodium 138 mMol/L (136-145); Total Protein 5.3 gm/dL (5.7-8.2); eGFR > 60 See Note
[2025-04-29] MEDS: ATORVASTATIN CALCIUM 20 MG TABLET 80 MG PO (08:24)
[2025-04-29] MEDS: CALCIUM CARBONATE 600 MG TABLET PO (08:24)
[2025-04-29] MEDS: TAMSULOSIN HCL 0.4 MG CAPSULE PO (08:25)
[2025-04-29] MEDS: APIXABAN 2.5 MG TABLET 5 MG PO (08:25)
[2025-04-29] MEDS: Mesalamine [Lialda] 1.2 gram Tablet,Delayed Release PO (08:26)
[2025-04-29] MEDS: METOPROLOL SUCCINATE XL 25 MG TABCR 50 MG PO (08:26)
--- NOTE | 2025-04-29 11:14 | PC.NURSE ---
Family inquiring on home health services. Kaley gibbs has been notified and aware of pts wishes therefore she will stop by to talk to pt and family prior to dc.
[2025-04-29] MEDS: INSULIN LISPRO (AdmeLOG) 1 UNIT/0.01 ML UNIT SC (12:00)
--- NOTE | 2025-04-29 14:13 | ESDS_ITS ---
<Statement entered by Kike Alvarez MD - 05/02/25 14:59> I have discussed and was present for the essential components of the history, physical examination, diagnosis, and treatment plan with the resident. I agree with the patient's care as documented by the resident and amended herein by me. Kike Alvarez MD FACP. <Statement entered by Solo Bunch MD - 04/29/25 15:43> I discussed and supervised with the security intern physician who took care of this patient. I personally saw and examined the patient. I agree with most of the assessment and plan. Disclaimer: Despite multiple revisions, due to the dictation software being used, the document bellow may not be free of grammatical errors including phonetic/typographic errors. However, this does not deter from our commitment to providing health care in the patient's best interest in mind. Plan of care discussed with attending Physician Dr. Antonio Bunch MD PGY-3 Planned Discharge Date 04/29/25 DS: Providers Provider Date of admission: 04/22/25 13:04 Primary care physician: Chance Somers MD Admitting Provider: Tato Stafford MD Attending Provider on Admission: Kike Alvarez MD Consults: 04/22/25 13:10 Consult to Urology Routine Comment: ROGELIO, kidney stone Consulting Provider: Rey Pearson 04/23/25 11:50 Consult to Gastroenterology Routine Comment: Consulting Provider: Adrian Ayala 04/23/25 17:43 Referral - Vamp Creaser Stat Service Needed for Transfer: Interventional Radiology Addl Comments:: Mild to moderate left hydronephrosis due to 6 mm proximal left ureteral calculus needed IR nephrostomy tube, IR is not available over the weekend, urology will not be able to see the patient until Saturday. 04/26/25 11:13 Consult to Cardiology Routine Comment: Consulting Provider: Que Bejarano Instructions: New onset a-fib RVR overnight, since converted without intervention (amio drip ordered, never hung) Attending Provider on DC: RESIDENT Laura Discharging Provider: RESIDENT Laura DS: Diagnosis Problem List Completed Was Problem List Reviewed/Reconciled?: Yes Hospital Course Hospital Course Hospital course: Hospital Course Mr. Matt Varma is a 74-year-old male with a history of [id number]-gjchtbuif type 2 diabetes, ulcerative colitis, CAD s/p PCI with three stents on Plavix, hypothyroidism, and hyperlipidemia who was admitted on 04/22/25 for acute kidney injury secondary to left-sided hydronephrosis caused by a 6 mm left proximal ureteral stone. On presentation, he had severe left- sided abdominal pain, nausea, vomiting, constipation, decreased appetite, and reduced urine output with notable distention. Urology was consulted and he was initially managed with fluids, pain control, and Tamsulosin, with a Ramesh catheter placed for urinary drainage. His hospital course was complicated by worsening constipation and abdominal distention requiring a bowel regimen with lactulose, enemas, and GoLytely, resulting in significant improvement and return of bowel function. He later underwent left nephrostomy tube placement for definitive relief of obstruction. During admission, the patient also developed new-onset paroxysmal atrial fibrillation with rapid ventricular response, which self-converted to sinus rhythm. Troponins peaked around 3.5, likely secondary to demand ischemia (type II NSTEMI). He was anticoagulated initially with a heparin drip, which was later stopped once stable, and transitioned to Eliquis 5 mg BID for stroke risk reduction. Plavix was held due to gross hematuria from the nephrostomy tube. His renal function steadily improved with creatinine returning to baseline, and he remained hemodynamically stable throughout. At the time of discharge, he is feeling well, tolerating diet, voiding well, passing gas and stools, with stable hemoglobin and downtrending troponins. He was fully counseled on outpatient urology and cardiology follow-up. Final Diagnoses -ROGELIO secondary to obstructive uropathy (left proximal ureteral stone) -Left hydronephrosis, s/p left nephrostomy tube -Ureterolithiasis -New paroxysmal atrial fibrillation, resolved -NSTEMI Type II (demand ischemia) -Gross hematuria secondary to nephrostomy tube and stone -Constipation (resolved) -Psu-wstarqd-icfsvdwly type 2 diabetes mellitus, stable -CAD s/p PCI with 3 stents -Hyperlipidemia -Hypothyroidism -Ulcerative colitis, no acute flare -Gilbert?s syndrome -GERD Care Plan Goals: Continue taking all medication as prescribed Continue taking Plavix 75 mg every other day Take metoprolol succinate XL 50 mg once a day daily Continue taking amlodipine 2.5 mg once a day and hold if blood pressure drops below 120/80 Continue all home medication as prescribed Follow-up with your PCP as outpatient within 2 weeks Follow-up with industrial paramedic as outpatient In case of emergency or worsening signs/symptoms, call 911 and come back to the ED ----- Plan discussed with attending physician Dr. Antonio Fitzpatrick MD PGY-1 Internal Medicine Time Spent with Patient Time attestation: Total time spent providing and/or coordinating discharge services: Time spent: Greater than 30 minutes Exam Vital Signs Temp Pulse Resp BP Pulse Ox O2 Del Method O2 Flow Rate 98.5 F 72 16 134/75 H 98 Room Air 3 04/29/25 11:57 04/29/25 12:00 04/29/25 11:57 04/29/25 11:57 04/29/25 11:57 04/29/25 04:00 04/26/25 10:20 Narrative Exam General: Alert, oriented x3, lying in bed, no acute distress. CV: Regular rate and rhythm, normal S1/S2, no murmurs. Resp: Lungs clear bilaterally, non-labored breathing. Abdomen: Soft, nontender, nondistended, normoactive bowel sounds. : Ramesh removed, nephrostomy site clean, reddish urine improved, no clots. Neuro: A&O x3, no focal deficits. Skin: Warm, dry, no rashes, no bruising Discharge Plan Plan Patient Disposition: HOME (Self Care) Patient condition on transfer: Stable Care Plan Goals: Continue taking all medication as prescribed Continue taking Plavix 75 mg every other day Take metoprolol succinate XL 50 mg once a day daily Continue taking amlodipine 2.5 mg once a day and hold if blood pressure drops below 120/80 Continue all home medication as prescribed Follow-up with your PCP as outpatient within 2 weeks Follow-up with industrial paramedic as outpatient In case of emergency or worsening signs/symptoms, call 911 and come back to the ED Prescriptions/Referrals Prescriptions/Med Rec: New metoprolol succinate 50 mg tablet extended release 24 hr 50 mg PO QDAY Qty: 90 0RF amlodipine 2.5 mg Tablet 2.5 mg PO QDAY Qty: 90 0RF Rx Instructions: Hold if BP drops below 120/80 rosuvastatin 10 mg tablet 10 mg PO HS Qty: 90 0RF Continued levothyroxine 25 mcg Tablet 25 mcg PO QAM Qty: 90 cholecalciferol (vitamin D3) [Vitamin D3] 2,000 UNIT capsule 2,000 unit PO QDAY Qty: 0 clopidogrel [Plavix] 75 mg Tablet 75 mg PO EVERYOTHERDAY metformin 500 mg Tablet Extended Release 24 Hr 500 mg PO BID mesalamine [Lialda] 1.2 gram Tablet,Delayed Release (Dr/Ec) 4.8 g PO BID temazepam 15 mg Capsule 15 mg PO QDAY PRN (Reason: Anxiety) PreserVision AREDS-2 250-90-40-1 mg Capsule 1 tab PO BID tamsulosin 0.4 mg capsule 0.4 mg PO QDAY Qty: 14 0RF hydrocodone-acetaminophen 5-325 mg tablet 1 tab PO Q6H MDD 9 PRN (Reason: pain) Qty: 14 0RF acetaminophen-codeine 300-30 mg tablet 1 tab PO BID PRN (Reason: pain) Qty: 14 0RF Discontinued coenzyme Q10 [CoQ-10] 100 mg Capsule 100 mg PO QDAY Referrals: Chance Somers MD [Primary Care Provider] - Segun Colon MD [Physician] - Patient/Caregiver Discharge Instructions Education Materials: Abdominal Pain, Discharge Instructions for ..., Risk Factors for Stroke, ED Urinary Retention, Male Print Language: Lithuanian Stand Alone Forms: [facility]inta Award Info., Patient Portal Info Letter Discharge Order Discharge Orders: Discharge (Routine); Ordered 04/29/25 Ordered By: Solo Bunch Quality Discharge Quality Measures VTE prophylaxis
--- NOTE | 2025-04-29 20:58 | PD.IMPROG ---
Documentation for date of: 04/29/25 Subjective Subjective Interval history: Late entry for the note patient is post discharge follow-up care discussed with the patient's I will see him in the office in the next couple of weeks Continue meds as prescribed by me Exam Vital Signs Temp Pulse Resp BP Pulse Ox O2 Del Method O2 Flow Rate 98.5 F 72 16 134/75 H 98 Room Air 3 04/29/25 11:57 04/29/25 12:00 04/29/25 11:57 04/29/25 11:57 04/29/25 11:57 04/29/25 04:00 04/26/25 10:20 Objective Labs 04/29/25 04:40 04/29/25 04:40 Labs: Laboratory Results - last 24 hr 04/29/25 04:40 WBC 6.2 RBC 3.71 L Hgb 11.2 L Hct 31.5 L MCV 85 MCH 30.2 MCHC 35.6 RDW Std Deviation 38.5 Plt Count 378 Neut % (Auto) 60 Lymph % (Auto) 19 Lagrange % (Auto) 16 H Eos % (Auto) 3 Baso % (Auto) 1 Neut # (Auto) 3.7 Lymph # (Auto) 1.2 Lagrange # (Auto) 1.0 H Eos # (Auto) 0.2 Baso # (Auto) 0.0 Immature Gran # (Auto) 0.07 H Absolute Nucleated RBC 0.00 Immature Gran % 1 H Nucleated RBC % 0 Sodium 138 Potassium 3.8 D Chloride 107 Carbon Dioxide 25.1 Anion Gap 6 L BUN 10 Creatinine 0.8 Estim Creat Clear Calc 65.7 eGFR > 60 BUN/Creatinine Ratio 13 Glucose 156 H Calculated Osmolality 277 Calcium 8.2 L Corrected Calcium 8.7 Phosphorus 3.8 Magnesium 2.0 Total Bilirubin 0.9 AST 25 ALT 22 Alkaline Phosphatase 70 Total Protein 5.3 L Albumin 3.4 Globulin 1.9 L Albumin/Globulin Ratio 1.8 Impressions Impression: Left hydronephrosis requiring left nephrostomy Proximal left ureteric stone Inflammatory bowel disease New onset atrial fibrillation rate controlled Outpatient follow-up Assessment & Plan A&P Narrative # Renal stone disease with left hydronephrosis and left proximal ureteric stones # Nausea vomiting secondary to 1 No evidence of acute exacerbation of the underlying inflammatory bowel disease I agree with the current management We will follow the patient Other medical problems include Diabetes mellitus type 2 Inflammatory bowel disease/UC/Crohn's Coronary artery disease status post PCI Hypothyroidism Time Spent With Patient Time: Total time spent is greater than 50% in coordination of care (as documented) at patient's floor/unit and/or counseling patient:
== END 2025-04-29 13:40 | disposition home or self-care (01) | DRG 693 ==
LOC: SERX 10:36 → SERHOLD 13:26 → S3NX 16:14
PROVIDERS: Physician Assistant; Radiology Diagnostic Radiology; Student in an Organized Health Care Education/Training Program; Admitting Provider Student in an Organized Health Care Education/Training Program; Emergency Provider Emergency Medicine; PCP Specialist; Visit Provider Internal Medicine
DX: N13.2 Hydronephrosis with renal and ureteral calculous obstruction (principal); J15.9 Unspecified bacterial pneumonia; K51.90 Ulcerative colitis, unspecified, without complications; N17.9 Acute kidney failure, unspecified; E11.9 Type 2 diabetes mellitus without complications; E03.9 Hypothyroidism, unspecified; K21.9 Gastro-esophageal reflux disease without esophagitis; N40.0 Benign prostatic hyperplasia without lower urinary tract symptoms; I25.10 Atherosclerotic heart disease of native coronary artery without angina pectoris; I10 Essential (primary) hypertension; E78.00 Pure hypercholesterolemia, unspecified; E83.51 Hypocalcemia; Z79.4 Long term (current) use of insulin; E80.4 Gilbert syndrome; I48.0 Paroxysmal atrial fibrillation; R31.0 Gross hematuria; N32.89 Other specified disorders of bladder; K56.41 Fecal impaction; D64.9 Anemia, unspecified; Z79.02 Long term (current) use of antithrombotics/antiplatelets; Z95.5 Presence of coronary angioplasty implant and graft; Z79.84 Long term (current) use of oral hypoglycemic drugs; Z79.890 Hormone replacement therapy; Z79.899 Other long term (current) drug therapy; Z79.01 Long term (current) use of anticoagulants; Z79.82 Long term (current) use of aspirin; Z87.442 Personal history of urinary calculi; Z87.891 Personal history of nicotine dependence; Z93.6 Other artificial openings of urinary tract status
CPT/HCPCS: 36415; 74018; 74022; 74176; 74425; 76770; 80048; 80053; 80069; 81001; 82306; 83605; 83735; 83970; 84100; 84484; 85025; 85610; 85730; 87086; 93005; 94640; 96361; 96374; 99285; A4314; C1769; J0696; J1644; J1815; J2405; J2470; J3010; J3475; J3490; J7030; J7050; J7120; Q9958; A9270; J7609

== ENCOUNTER 2025-05-05 07:50 | Day surgery (SDC) | payer MEDICARE, SELFPAY ==
[2025-05-04 13:13] VITALS: BMI 23.0
[2025-05-05] VITALS (8 sets, daily range): BP systolic 127–153; BP diastolic 65–85; PULSE 69–104; RESP 13–17; TEMP 36.4–36.6; O2SAT 96–100; BMI 21.9
[2025-05-05] MEDS: RINGERS LACTATED 1000 ML 1,000 ML 20 ML IV (08:24)
[2025-05-05] MEDS: VANCOMYCIN/NS 1 GM IVPB 200 ML IV (08:25)
--- NOTE | 2025-05-05 10:00 | XR_ITS ---
Examination: Retrograde pyelogram left with without KUB Fluoroscopy AP abdomen 4 views Date and time: May 05, 2025 1043 hours INDICATIONS: History left flank pain, hydronephrosis secondary to 5 mm mid left ureteral calculus on CT stone study April 24, 2025, ureteral stone manipulation TECHNIQUE AND FINDINGS: Left approximately tube satisfactory position No significant dilatation of the left renal collecting system Fluoroscopy 62 seconds 4 spot abdomen films IMPRESSION: Left retrograde study as above
--- NOTE | 2025-05-05 11:59 | ESOP_ITS ---
Date of Procedure 05/05/25 Pre Op Diagnosis 5.6 mm stone mid ureter with hydronephrosis s/p placement of percutaneous nephrostomy tube, BPH with urinary obstruction and LUTS Post Op Diagnosis Same plus tight left ureter large obstructive prostate gland bladder showed thickly trabeculation Procedure Cystoscopic examination, nephrostogram, left retrograde pyelogram, placement of safety wire left kidney, left ureteroscopy, placement of left ureteral stent in the retrograde fashion under fluoroscopic examination, removal of left nephrostomy tube Findings Obstructive prostate gland with a large median lobe very trabeculated bladder, very tight left ureter Procedure Description This is a 74-year-old gentleman this patient was admitted in the hospital with urosepsis. Patient had placement of left nephrostomy tube because of left hydronephrosis. Patient was bothered by nephrostomy tube he was recommended cystoscopic examination left retrograde pyelogram left ureteroscopy possible laser stone fragmentation placement of left ureteral stent and removal of left nephrostomy tube procedure and complications were discussed with the patient in great detail informed consent is obtained Patient was brought to the operating room in a satisfactory condition after appropriate premedication was put on the operating table in a supine position he was appropriately identified by surgeon and operating room staff site scope and indication of procedure were reconfirmed with the patient. General anesthesia was given uneventfully patient was positioned in the dorsolithotomy position parts were prepped and draped in the usual sterile fashion at this time patient received perioperative antibiotics 20 mg of Lasix IV was administered for diure sis and for prevention of pyelocalyceal infectious complications. 21 cystoscope was used to do the cystourethroscopy examination of anterior urethra was without any stricture prostatic urethra revealed bilobar prostatic hypertrophy with a large median bar. Inside of the bladder and all the quadrant was carried out he had course of bladder trabeculations and congested bladder mucosa. Next I iden tified the right ureteral orifice I was unable to identify the left ureteral orifice. This was because of the trabeculations. At this time I did not nephrostogram under fluoroscopic examination and I was able to see the contrast coming from the ureteral orifice on the left side and I passed a open-ended Pollick catheter and through the open-ended Pollick catheter retrograde pyelogram was performed he did not had dilated renal pelvis. Safety wire was passed up to the upper pole calyx. Next the cystoscope was withdrawn gently I used semirigid ureteroscope and passed into the left ureteral orifice under fluoroscopic examination he had a very tight ureter it was not possible to advance the ureteroscope. At this time I decided to place a ureteral stent. Under fluoroscopic examination I placed a 26 cm long 6 Amharic double-J stent proximal and was in the upper pole calyx distal in the bladder. Next nephrostomy tube on the left side was removed. Bladder was emptied patient after having tolerated the procedure well was moved to recovery room in a satisfactory condition to be discharged home. Patient disposition he is discharged home he will be seen in urology office and he will be scheduled for second stage procedure through my office Pathology / specimen None Estimated Blood Loss 3.0 Condition Stable Disposition PACU Surgeon Rey Pearson MD Surgical Staff Operation Date: 05/05/25 10:15 Case Staff Anesthesiologist: Héctor Talbot
--- NOTE | 2025-05-05 12:15 | SUR.PHASEI ---
1215: Report recieved from Tracie Day RN. Pt. wakes to name then drifts back to sleep, vitals stable, breathing unlabored, no complaint of pain or nausea, dressing to left flank CDI, no active bleed noted.
--- NOTE | 2025-05-05 13:15 | SUR.PHASEII ---
1315: Pt. AAOx4, vitals stable, breathing unlabored, no complaint of pain or nausea, dressing to left flank CDI, no active bleed noted, pt. tolerated sips of water well, pt. ambulated to wheelchair with steady gait and no assist, no complications. Gave discharge instructions to the pt. and his ride, both verbalized understanding and had no further questions. Pt. left with all personal belongings.
== END 2025-05-05 12:15 | disposition home or self-care (01) ==
PROVIDERS: PCP Specialist; Referring Provider Urology; Visit Provider Urology
PROC: 0TJB8ZZ Inspection of Bladder, Via Natural or Artificial Opening Endoscopic (ICD-10-PCS; CPT 52000; principal; 2025-05-05 10:00)
DX: N13.2 Hydronephrosis with renal and ureteral calculous obstruction (principal); N40.1 Benign prostatic hyperplasia with lower urinary tract symptoms; N13.8 Other obstructive and reflux uropathy; N32.89 Other specified disorders of bladder; Z43.6 Encounter for attention to other artificial openings of urinary tract; I10 Essential (primary) hypertension; I25.10 Atherosclerotic heart disease of native coronary artery without angina pectoris; E03.9 Hypothyroidism, unspecified; E11.9 Type 2 diabetes mellitus without complications; E78.00 Pure hypercholesterolemia, unspecified; Z87.11 Personal history of peptic ulcer disease; Z96.0 Presence of urogenital implants; Z95.5 Presence of coronary angioplasty implant and graft
CPT/HCPCS: 52332; 50389; 74420; A4217; A4649; C1769; C1894; C2617; J1100; J1580; J1938; J2371; J2405; J2704; J3010; J3373; J3490; J7120; J1805

== ENCOUNTER → 2025-05-10 | Outpatient (CLI) | payer MEDICARE, SELFPAY ==
[2025-05-10 15:15] LABS: Collection Type, Urine Clean Catch; Squamous Epithelial Cell,Urine 0 /hpf (0-5)
[2025-05-10 15:29] LABS: Basophils # (Auto) 0.1 Thou/mm3 (0.0-0.2); Basophils % (Auto) 1 % (0-2.5); Eosinophils # (Auto) 0.4 Thou/mm3 (0.0-0.5); Eosinophils % (Auto) 4 % (0-10); Hematocrit 34.2 % (41.0-53.0); Hemoglobin 11.7 g/dL (13.5-16.0); Immature Granulocytes Auto 0.06 Thou/mm3 (0.00-0.00); Lymphocytes # (Auto) 1.2 Thou/mm3 (1.0-4.8); Lymphocytes % (Auto) 12 % (10-50); Mean Corpuscular HGB Conc 34.2 g/dl (31.0-37.0); Mean Corpuscular Hemoglobin 30.3 pg (25.0-35.0); Mean Corpuscular Volume 89 fL (80-100); Monocytes # (Auto) 0.9 Thou/mm3 (0.0-0.8); Monocytes % (Auto) 9 % (0-12); Neutrophils # (Auto) 7.6 Thou/mm3 (1.8-7.7); Neutrophils % (Auto) 74 % (37-80); Nucleated Red Blood Cell # 0.00 Thou/mm3 (0.00-0.00); Nucleated Red Blood Cell % 0 /100 WBC (0); Platelet Count 377 Thou/mm3 (140-440); RDW Standard Deviation 43.9 fL (35.1-43.9); Red Blood Count 3.86 Miln/mm3 (4.50-5.90); White Blood Count 10.3 Thou/mm3 (3.8-10.6)
[2025-05-10 15:44] LABS: Alanine Aminotransferase 14 U/L (10-49); Albumin, Serum 4.0 gm/dL (3.4-4.8); Albumin/Globulin Ratio 2.0 (1.2-2.2); Alkaline Phosphatase 73 U/L (46-116); Anion Gap 11 (7-16); Aspartate Amino Transferase 18 U/L (0-34); BUN/Creatinine Ratio 22 Ratio (12-20); Bilirubin,Total 1.3 mg/dL (0.3-1.2); Blood Urea Nitrogen 24 mg/dL (9-23); Calcium 9.0 mg/dL (8.3-10.6); Calcium (Corrected) 9.0 mg/dL (8.5-10.1); Carbon Dioxide 21.8 mMol/L (20.0-31.0); Chloride 106 mMol/L (98-107); Creatinine (Component) 1.1 mg/dL (0.6-1.3); Globulin 2.0 gm/dL (2.3-3.5); Glucose 91 mg/dL (74-106); Osmolality,Calculated 281 (275-295); Potassium 4.4 mMol/L (3.4-5.1); Sodium 139 mMol/L (136-145); Total Protein 6.0 gm/dL (5.7-8.2); Troponin I < 0.020 ng/mL (0.0-0.045); eGFR > 60 See Note
[2025-05-10 15:45] LABS: Iron 34 mcg/dL (65-175); Percent Iron Saturation 13 % (20-55); Total Iron Binding Capacity 252 mcg/dL (250-425); Unsaturated Iron Binding 218 (225-295)
[2025-05-10 16:07] LABS: Bilirubin,Urine Negative (Negative); Blood,Urine 3+ (Negative); Clarity,Urine Clear (Clear/Hazy); Color,Urine Lt-Yellow (Lt Yel-Yel); Glucose, Urine Negative (Negative); Ketones,Urine Negative (Negative); Leukocyte Esterase,Urine Positive (Negative); Nitrite,Urine Negative (Negative); PH,Urine 6.0 (5.0-7.0); Protein,Urine Trace (Neg - Trace); RBC,Urine 32 /hpf (0-3); Specific Gravity,Urine 1.008 (1.001-1.035); Urobilinogen,Urine Negative mg/dL (0.0-1.0); WBC,Urine 8 /hpf (0-5)
== END | disposition home or self-care (01) ==
LOC: COPL 14:02
PROVIDERS: PCP Specialist; Referring Provider Specialist; Visit Provider Specialist
DX: D64.9 Anemia, unspecified (principal); I24.89 Other forms of acute ischemic heart disease; N13.2 Hydronephrosis with renal and ureteral calculous obstruction
CPT/HCPCS: 36415; 80053; 81001; 83540; 83550; 84484; 85025; 87086

== ENCOUNTER → 2025-08-23 | Outpatient (CLI) | payer MEDICARE, SELFPAY ==
[2025-08-23 16:07] LABS: Basophils # (Auto) 0.1 Thou/mm3 (0.0-0.2); Basophils % (Auto) 1 % (0-2.5); Eosinophils # (Auto) 0.1 Thou/mm3 (0.0-0.5); Eosinophils % (Auto) 1 % (0-10); Hematocrit 37.3 % (41.0-53.0); Hemoglobin 12.8 g/dL (13.5-16.0); Immature Granulocytes Auto 0.02 Thou/mm3 (0.00-0.00); Lymphocytes # (Auto) 1.1 Thou/mm3 (1.0-4.8); Lymphocytes % (Auto) 16 % (10-50); Mean Corpuscular HGB Conc 34.3 g/dl (31.0-37.0); Mean Corpuscular Hemoglobin 30.5 pg (25.0-35.0); Mean Corpuscular Volume 89 fL (80-100); Monocytes # (Auto) 0.6 Thou/mm3 (0.0-0.8); Monocytes % (Auto) 9 % (0-12); Neutrophils # (Auto) 5.2 Thou/mm3 (1.8-7.7); Neutrophils % (Auto) 73 % (37-80); Nucleated Red Blood Cell # 0.00 Thou/mm3 (0.00-0.00); Nucleated Red Blood Cell % 0 /100 WBC (0); Platelet Count 258 Thou/mm3 (140-440); RDW Standard Deviation 44.3 fL (35.1-43.9); Red Blood Count 4.19 Miln/mm3 (4.50-5.90); White Blood Count 7.2 Thou/mm3 (3.8-10.6)
[2025-08-23 16:17] LABS: Glucose Estimated Average 117 mg/dL (80-131); Hemoglobin A1C 5.7 % Hgb (4.8-6.0)
[2025-08-23 16:17] LABS: Creatinine MALB Rnd Ur 39 mg/dL (30-125); Microalbumin Creat Ratio 92 mg/gCrea (<30); Microalbumin, Random Urine 36 mg/L (0-300)
[2025-08-23 16:20] LABS: Alanine Aminotransferase 11 U/L (10-49); Albumin, Serum 4.6 gm/dL (3.4-4.8); Albumin/Globulin Ratio 3.3 (1.2-2.2); Alkaline Phosphatase 58 U/L (46-116); Anion Gap 12 (7-16); Aspartate Amino Transferase 18 U/L (0-34); BUN/Creatinine Ratio 18 Ratio (12-20); Bilirubin,Total 1.4 mg/dL (0.3-1.2); Blood Urea Nitrogen 18 mg/dL (9-23); Calcium 9.3 mg/dL (8.3-10.6); Calcium (Corrected) 9.3 mg/dL (8.5-10.1); Carbon Dioxide 23.9 mMol/L (20.0-31.0); Cardiac Risk Estimate 2.8 RATIO (4.0-6.7); Chloride 107 mMol/L (98-107); Cholesterol 118 mg/dL (132-200); Creatinine (Component) 1.0 mg/dL (0.6-1.3); Globulin 1.4 gm/dL (2.3-3.5); Glucose 135 mg/dL (74-106); HDL Cholesterol 42 mg/dL (40-60); Iron 37 mcg/dL (65-175); LDL Cholesterol,Calculated 34 mg/dL (0-130); Osmolality,Calculated 288 (275-295); Percent Iron Saturation 12 % (20-55); Potassium 4.4 mMol/L (3.4-5.1); Sodium 143 mMol/L (136-145); Total Iron Binding Capacity 305 mcg/dL (250-425); Total Protein 6.0 gm/dL (5.7-8.2); Triglycerides 210 mg/dL (30-150); Unsaturated Iron Binding 268 (225-295); eGFR > 60 See Note
[2025-08-30 07:05] LABS: hs-CRP* 3.4 mg/L
== END | disposition home or self-care (01) ==
LOC: COPL 14:37
PROVIDERS: PCP Specialist; Referring Provider Specialist; Visit Provider Specialist
DX: K51.00 Ulcerative (chronic) pancolitis without complications (principal); K57.30 Diverticulosis of large intestine without perforation or abscess without bleeding; E11.65 Type 2 diabetes mellitus with hyperglycemia; E78.2 Mixed hyperlipidemia; D64.9 Anemia, unspecified
CPT/HCPCS: 36415; 80053; 80061; 82043; 82570; 83036; 83540; 83550; 85025; 86141

== ENCOUNTER 2025-08-29 08:29 | Emergency (ER) | payer MEDICARE, SELFPAY ==
[2025-08-29 08:42] VITALS: BP 143/57; PULSE 67; RESP 19; TEMP 37.6; O2SAT 96; BMI 23.0
--- NOTE | 2025-08-29 08:42 | EKG_ITS ---
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
--- NOTE | 2025-08-29 08:42 | XR_ITS ---
EXAMINATION: AP chest single view TECHNIQUE: AP portable sitting chest single view Date and time: July 23, 2025, 0957 hours INDICATIONS: Chest pain today. FINDINGS: Normal heart size Lungs are clear. Prominent osteopenia with old appearing right-sided rib fractures IMPRESSION: No pneumonia or pulmonary edema
--- NOTE | 2025-08-29 08:43 | XR_ITS ---
Examination: CT cervical spine without contrast 2-D sagittal reconstructions 2-D coronal reconstructions 3-D reconstructions. Exam date and time: August 29, 2025, 0911 hours INDICATIONS: Patient fell this morning after syncopal episode with double vision CTDI:vol (mGy) 13.2 DLP: (mGycm) 274 Technique: Multiple 2 mm axial sections of the cervical spine have been obtained. The coronal and sagittal reconstructions have been obtained. 3-D reconstructions have been obtained. Low dose protocols were performed. One or more of the following dose reduction techniques were used; automated exposure control, adjustment of the mA and/or KV according to patient size, use of iterative reconstruction technique. Findings: Axial sections demonstrate intact base of the skull. C1 exhibit satisfactory relationship to the odontoid. No acute cervical vertebral body fracture seen. Alignment posterior spinous processes satisfactory. Impression: No acute cervical fracture.
--- NOTE | 2025-08-29 08:43 | XR_ITS ---
Examination: CT brain head without contrast. 2-D sagittal coronal reconstructions Date and time of exam: August 29, 2025, 0911 hours INDICATIONS: Onset syncopal episode this morning with double vision CTDI: vol (mGy): 46.9 DLP: (mGycm): 904 Technique: Multiple CT axial sections of the brain have been obtained, 5 mm slice thickness. Contrast has not been administered. 2-D sagittal, coronal reconstructions have been obtained Low dose protocols were performed. One or more of the following dose reduction techniques were used; automated exposure control, adjustment of the mA and/or KV according to patient size, use of iterative reconstruction technique. Findings: No significant ventricular enlargement. Intra-axial or extra-axial hemorrhage density is not seen. No mass effect or midline shift Basal cisterns are not remarkable. Fourth ventricle is midline. Cranial vault intact. Impression: Negative for acute hemorrhage, mass effect or midline shift Advise clinical correlation and follow-up accordingly
--- NOTE | 2025-08-29 08:47 | PD.EDDIZZY ---
ED Dizzyness RME/HPI General Chief Complaint: Dizziness Stated Complaint: DOUBLE VISION FALL THIS MORNING Time Seen by Provider: 08/29/25 08:42 Arrival date/time: 08/29/25 08:29 RME / HPI RME / HPI Narrative: DR. MARTINEZ MAIN ED EVALUATION: 74-year-old male with presents to the Emergency Department after a fall with head injury and dizziness. Per patient, he fell backward approximately 1.5 hours ago, striking his head. He reports being profusely sweating after the fall and has dizziness. He denies loss of consciousness but reports a 10-day history of double vision when looking down, as well as a persistent headache over the same period. He previously attributed the symptoms to vertigo, which he has had in the past. He did see his role player for the double vision but came in today after concern for his fall this morning. Denies any other symptoms at this time. He also reports having basal cell carcinoma excision on his right shoulder, with stitches that have been bleeding 2-3 tablespoons per day for the last few days. Other past medical history of coronary artery disease status post PCI with 3 stents (2016 & 2018) on Plavix, type 2 diabetes mellitus (non?insulin dependent), hypothyroidism, hyperlipidemia, inflammatory bowel disease, Gilbert?s syndrome, and GERD. Related Data Home Medications ?Medication ?Instructions ?Recorded ?Confirmed cholecalciferol (vitamin D3) 50 2,000 unit PO QDAY #0 caps 05/30/15 05/05/25 mcg (2,000 unit) capsule (Vitamin D3) levothyroxine 25 mcg tablet 25 mcg PO QA ##90 05/30/15 05/05/25 clopidogrel 75 mg tablet (Plavix) 75 mg PO EVERYOTHERDAY 01/05/21 05/04/25 mesalamine 1.2 gram tablet,delayed 4.8 g PO BID 01/05/21 05/05/25 release (Lialda) temazepam 15 mg capsule 15 mg PO QDAY PRN Anxiety 03/30/24 05/05/25 ascorbic acid (vitamin C) 500 mg 500 mg PO QDAY 05/04/25 05/05/25 chewable tablet (C-500) coenzyme Q10 30 mg capsule 30 mg PO QDAY 05/04/25 05/05/25 ferrous sulfate 325 mg (65 mg 325 mg PO QDAY 05/04/25 05/05/25 iron) tablet (iron) finerenone 10 mg tablet (Kerendia) 10 mg PO QDAY 05/04/25 05/04/25 metformin 750 mg tablet 750 mg PO BID 05/04/25 05/05/25 vit C 250 mg-vit E 90 mg-zinc 40 1 tab PO BID 05/04/25 05/05/25 mg-copper 1 [id number] capsule ([facility] AREDS-2) Previous Rx's ?Medication ?Instructions ?Recorded tamsulosin 0.4 mg capsule 0.4 mg PO QDAY #14 caps 04/21/25 amlodipine 2.5 mg tablet 2.5 mg PO QDAY #90 tabs 04/28/25 metoprolol succinate 50 mg 50 mg PO QDAY #90 tabs 04/28/25 tablet,extended release 24 hr rosuvastatin 10 mg tablet 10 mg PO HS #90 tabs 04/29/25 hydrocodone 7.5 mg-acetaminophen 1 tab PO Q8H #14 tabs 05/05/25 300 mg tablet Allergies Allergy/AdvReac Type Severity Reaction Status Date / Time lisinopril Allergy Intermediate Headache Verified 08/29/25 08:33 valsartan Allergy Intermediate Headache Verified 08/29/25 08:33 azathioprine Allergy Nausea Verified 08/29/25 08:33 sulfasalazine Allergy Anaphylaxis Verified 08/29/25 08:33 Review of Systems Review of Systems Systems Reviewed: All systems reviewed, normal except as documented Past Medical History Past Medical History CARDIAC: Positive Coronary Artery Disease and Hypercholesterolemia GASTROINTESTINAL: Positive Gastrointestinal Disorders and Colitis MUSCULOSKELETAL: Positive Musculoskeletal Disorders ENDOCRINE: Positive Diabetes Mellitus Type 2 and Hypothyroidism OTHER HISTORY: Positive Shingles, Mumps and Cancer Surgical History SURGICAL: Positive Cardiac Surgery, Coronary Stent and Vasectomy Social History SMOKING STATUS: Never smoker SUBSTANCE USE: does not use ALCOHOL: Never ED Exam Narrative Physical exam: GENERAL APPEARANCE: alert and oriented x 4, well-developed, well-nourished, no acute distress; appears pale VITALS: All vitals were reviewed and the pulse ox is 96% on room air, which is normal according to my interpretation. HEENT: Normocephalic, atraumatic; pupils equal, round, reactive to light; EOMI; mucous membranes pink, moist; oropharynx clear NECK: Supple LUNGS: CTABL; no wheezes, no rales, no rhonchi HEART: Regular rate, regular rhythm; normal S1, S2; no murmurs ABDOMEN: non distended; normal BS; soft, no tenderness, no guarding, no rebound; no masses, no organomegaly, no hernia BACK: no CVA tenderness EXTREMITIES: atraumatic; no edema NEUROLOGIC: awake; alert and oriented x4; cranial nerves II-XII grossly intact; no focal sensory or motor deficits PSYCHIATRIC: appropriate mood and affect SKIN: warm, dry, palllor; no rashes; right shoulder wound with stitches from recent basal cell carcinoma excision Course Quality Measures none Orders Category Date Time Status Roving Or Yarn Color Checker NOW Care 08/29/25 08:42 Active EKG (ED ONLY) *Do not use* NOW Care 08/29/25 08:42 Completed Orthostatic Vitals NOW Care 08/29/25 10:[address] cervical spine wo con Stat Exams 08/29/25 08:[address] head/brain wo con Stat Exams 08/29/25 08:43 Completed EKG (ED Only) Stat Exams 08/29/25 08:42 Draft XR chest 1V portable Stat Exams 08/29/25 08:42 Completed B-Type Natriuretic Peptide Stat Lab 08/29/25 09:46 Completed CBC Stat Lab 08/29/25 09:46 Completed Comprehensive Metabolic Panel Stat Lab 08/29/25 09:46 Completed Lipase Stat Lab 08/29/25 09:46 Completed Magnesium Stat Lab 08/29/25 09:46 Completed Partial Thromboplastin Time Stat Lab 08/29/25 09:46 Completed Prothrombin Time with INR Stat Lab 08/29/25 09:46 Completed Troponin I Stat Lab 08/29/25 09:46 Completed Type and Screen Stat Lab 08/29/25 10:36 Results UA, C/S IF [Urinalysis, C/S if Indicated] Stat Lab 08/29/25 10:17 Completed Vital Signs Vital signs: Vital Signs Temperature 99.7 F 08/29/25 08:42 Pulse Rate 67 08/29/25 08:42 Respiratory Rate 19 08/29/25 08:42 Blood Pressure 143/57 H 08/29/25 08:42 Pulse Oximetry (%) 96 08/29/25 08:42 Oxygen Delivery Method Room Air 08/29/25 08:42 Dizziness MDM Narrative MDM Narrative:: I, Yoanna Brendan, am scribing for and in the presence of Dr. Martinez. Patient data External records reviewed:: [facility] previous records Clinical information provided by:: patient and spouse Social determinants that could affect healthcare access:: none Patient has the following chronic illnesses:: Basal cell carcinoma excision on his right shoulder. Other past medical history of coronary artery disease status post PCI with 3 stents (2017 & 2019) on Plavix, type 2 diabetes mellitus (non?insulin dependent), hypothyroidism, hyperlipidemia, inflammatory bowel disease, Gilbert?s syndrome, and GERD. How is presenting disease/condition affected by chronic disease/condition?: exacerbated by Evaluation data The following diagnostics were reviewed and interpreted by me:: lab results, radiology exam(s) and EKG tracing(s) (My interpretation: EKG performed at 0857 hours, sinus bradycardia, rate 58, Q wave in V1, T wave inversion in V1 and lead 3) Lab and/or radiology exams considered but not ordered:: none Interpretation Summary: Procedure(s): XR chest 1V portable Accession Number(s): [id number] cc: Paul Lombardo MD; NO PRIMARY/FAMILY,PHYSICIAN; Malena Martinez MD~ EXAMINATION: AP chest single view TECHNIQUE: AP portable sitting chest single view Date and time: July 23, 2025, 0957 hours INDICATIONS: Chest pain today. FINDINGS: Normal heart size Lungs are clear. Prominent osteopenia with old appearing right-sided rib fractures IMPRESSION: No pneumonia or pulmonary edema Dictated By: Paul Lombardo MD Procedure(s): CT cervical spine wo con Accession Number(s): [id number] cc: Paul Lombardo MD; NO PRIMARY/FAMILY,PHYSICIAN; Malena Martinez MD~ Examination: CT cervical spine without contrast 2-D sagittal reconstructions 2-D coronal reconstructions 3-D reconstructions. Exam date and time: August 29, 2025910 hours INDICATIONS: Patient fell this morning after syncopal episode with double vision CTDI:vol (mGy) 13.2 DLP: (mGycm) 274 Technique: Multiple 2 mm axial sections of the cervical spine have been obtained. The coronal and sagittal reconstructions have been obtained. 3-D reconstructions have been obtained. Low dose protocols were performed. One or more of the following dose reduction techniques were used; automated exposure control, adjustment of the mA and/or KV according to patient size, use of iterative reconstruction technique. Findings: Axial sections demonstrate intact base of the skull. C1 exhibit satisfactory relationship to the odontoid. No acute cervical vertebral body fracture seen. Alignment posterior spinous processes satisfactory. Impression: No acute cervical fracture. Dictated By: Paul Lombardo MD Procedure(s): CT head/brain wo [facility] Accession Number(s): [id number] cc: Paul Lombardo MD; NO PRIMARY/FAMILY,PHYSICIAN; Malena Martinez MD~ Examination: CT brain head without contrast. 2-D sagittal coronal reconstructions Date and time of exam: August 29, 2025910 hours INDICATIONS: Onset syncopal episode this morning with double vision CTDI: vol (mGy): 46.9 DLP: (mGycm): 904 Technique: Multiple CT axial sections of the brain have been obtained, 5 mm slice thickness. Contrast has not been administered. 2-D sagittal, coronal reconstructions have been obtained Low dose protocols were performed. One or more of the following dose reduction techniques were used; automated exposure control, adjustment of the mA and/or KV according to patient size, use of iterative reconstruction technique. Findings: No significant ventricular enlargement. Intra-axial or extra-axial hemorrhage density is not seen. No mass effect or midline shift Basal cisterns are not remarkable. Fourth ventricle is midline. Cranial vault intact. Impression: Negative for acute hemorrhage, mass effect or midline shift Advise clinical correlation and follow-up accordingly Dictated By: Paul Lombardo MD Medications / Prescriptions Medications or Prescriptions considered but not ordered:: none Medication administrations:: see above if any Consultations Consultation(s) initiated? (list below): No Diagnosis Dizziness Differential Diagnosis: other (Intracranial hemorrhage, vertebrobasilar insufficiency, and anemia secondary to blood loss.) Most likely diagnosis given after review of the tests above:: Syncope Admission Indicated Admission indicated?: not indicated Admission Request Was there a request for admission?: No Disposition Plan Disposition Plan: Discharge Discharge Attestation Discharge Attestation: The patient and all family members were given an opportunity to ask questions and understood the discharge instructions. Discharge instructions specifically effects, indications for sooner follow up or return to the emergency department, and the expected course of current diagnosis. Patient condition: Stable Discharge Plan Plan Patient Disposition: HOME (Self Care) Prescriptions/Referrals Prescriptions/Med Rec: No Action levothyroxine 25 mcg Tablet 25 mcg PO QAM Qty: 90 cholecalciferol (vitamin D3) [Vitamin D3] 2,000 UNIT capsule 2,000 unit PO QDAY Qty: 0 clopidogrel [Plavix] 75 mg Tablet 75 mg PO EVERYOTHERDAY mesalamine [Lialda] 1.2 gram Tablet,Delayed Release (Dr/Ec) 4.8 g PO BID temazepam 15 mg Capsule 15 mg PO QDAY PRN (Reason: Anxiety) tamsulosin 0.4 mg capsule 0.4 mg PO QDAY Qty: 14 0RF metformin 750 mg tablet 750 mg PO BID [facility] AREDS-2 250-90-40-1 mg capsule 1 tab PO BID Kerendia 10 mg tablet 10 mg PO QDAY coenzyme Q10 30 mg capsule 30 mg PO QDAY ascorbic acid (vitamin C) [C-500] 500 mg tablet,chewable 500 mg PO QDAY ferrous sulfate [iron] 325 mg (65 mg iron) tablet 325 mg PO QDAY hydrocodone-acetaminophen 7.5-300 mg tablet 1 tab PO Q8H MDD 4 Qty: 14 0RF metoprolol succinate 50 mg tablet extended release 24 hr 50 mg PO QDAY Qty: 90 0RF amlodipine 2.5 mg Tablet 2.5 mg PO QDAY Qty: 90 0RF Rx Instructions: Hold if BP drops below 120/80 rosuvastatin 10 mg tablet 10 mg PO HS Qty: 90 0RF Referrals: Chance Somers MD [Primary Care Provider, Family Practice] - In 1 week Problem List Clinical Impression: Syncope Patient/Caregiver Discharge Instructions Education Materials: ED Fainting, Uncertain Cause Print Language: [place]ill[place] Stand Alone Forms: Binta Award Info., Patient Portal Info Letter
[2025-08-29 09:22] VITALS: PULSE 62
[2025-08-29 09:57] LABS: Basophils # (Auto) 0.1 Thou/mm3 (0.0-0.2); Basophils % (Auto) 1 % (0-2.5); Eosinophils # (Auto) 0.0 Thou/mm3 (0.0-0.5); Eosinophils % (Auto) 0 % (0-10); Hematocrit 36.7 % (41.0-53.0); Hemoglobin 12.9 g/dL (13.5-16.0); Immature Granulocytes Auto 0.03 Thou/mm3 (0.00-0.00); Lymphocytes # (Auto) 0.8 Thou/mm3 (1.0-4.8); Lymphocytes % (Auto) 12 % (10-50); Mean Corpuscular HGB Conc 35.1 g/dl (31.0-37.0); Mean Corpuscular Hemoglobin 30.7 pg (25.0-35.0); Mean Corpuscular Volume 87 fL (80-100); Monocytes # (Auto) 0.6 Thou/mm3 (0.0-0.8); Monocytes % (Auto) 9 % (0-12); Neutrophils # (Auto) 5.5 Thou/mm3 (1.8-7.7); Neutrophils % (Auto) 78 % (37-80); Nucleated Red Blood Cell # 0.00 Thou/mm3 (0.00-0.00); Nucleated Red Blood Cell % 0 /100 WBC (0); Platelet Count 223 Thou/mm3 (140-440); RDW Standard Deviation 43.3 fL (35.1-43.9); Red Blood Count 4.20 Miln/mm3 (4.50-5.90); White Blood Count 7.0 Thou/mm3 (3.8-10.6)
[2025-08-29 10:22] LABS: Alanine Aminotransferase 10 U/L (10-49); Albumin, Serum 4.5 gm/dL (3.4-4.8); Albumin/Globulin Ratio 2.8 (1.2-2.2); Alkaline Phosphatase 53 U/L (46-116); Anion Gap 9 (7-16); Aspartate Amino Transferase 15 U/L (0-34); BUN/Creatinine Ratio 17 Ratio (12-20); Bilirubin,Total 1.5 mg/dL (0.3-1.2); Blood Urea Nitrogen 17 mg/dL (9-23); Calcium 9.1 mg/dL (8.3-10.6); Calcium (Corrected) 9.1 mg/dL (8.5-10.1); Carbon Dioxide 24.1 mMol/L (20.0-31.0); Chloride 109 mMol/L (98-107); Creatinine (Component) 1.0 mg/dL (0.6-1.3); Estimated Creatinine Clearance 50.6 mL/min (>60); Globulin 1.6 gm/dL (2.3-3.5); Glucose 145 mg/dL (74-106); INR 1.0 (0.9-1.3); Lipase 48 U/L (12-53); Magnesium 1.9 mg/dL (1.6-2.6); Osmolality,Calculated 287 (275-295); Partial Thromboplastin Time 25.9 Seconds (22.0-36.0); Potassium 4.3 mMol/L (3.4-5.1); Prothrombin Time 10.3 Seconds (9.0-12.2); Sodium 142 mMol/L (136-145); Total Protein 6.1 gm/dL (5.7-8.2); Troponin I < 0.020 ng/mL (0.0-0.045); eGFR > 60 See Note
[2025-08-29 10:23] LABS: Collection Type, Urine Clean Catch; Squamous Epithelial Cell,Urine 0 /hpf (0-5)
[2025-08-29 10:29] VITALS: BP 132/65; PULSE 62; RESP 18; TEMP 37.4; O2SAT 100
[2025-08-29 10:40] LABS: Bilirubin,Urine Negative (Negative); Blood,Urine Negative (Negative); Clarity,Urine Clear (Clear/Hazy); Color,Urine Lt-Yellow (Lt Yel-Yel); Culture Indicated,Urine Not Indicated; Glucose, Urine Negative (Negative); Ketones,Urine Trace (Negative); Leukocyte Esterase,Urine Negative (Negative); Nitrite,Urine Negative (Negative); PH,Urine 6.0 (5.0-7.0); Protein,Urine Negative (Neg - Trace); RBC,Urine 1 /hpf (0-3); Specific Gravity,Urine 1.013 (1.001-1.035); Urobilinogen,Urine Negative mg/dL (0.0-1.0); WBC,Urine < 1 /hpf (0-5)
[2025-08-29 10:43] LABS: B-Type Natriuretic Peptide < 20 pg/mL (0-100)
[2025-08-29 11:29] VITALS: BP 133/75; BP 134/73; BP 145/66; PULSE 62; PULSE 64; PULSE 98
[2025-08-29 11:52] VITALS: BP 163/76; PULSE 68; RESP 19; TEMP 36.9; O2SAT 100
== END 2025-08-29 11:57 | disposition home or self-care (01) ==
PROVIDERS: Emergency Provider Emergency Medicine; PCP Specialist
DX: R55 Syncope and collapse (principal); H53.2 Diplopia
CPT/HCPCS: 36415; 70450; 71045; 72125; 80053; 81001; 83690; 83735; 83880; 84484; 85025; 85610; 85730; 86850; 86900; 86901; 93005; 99283